=== PATIENT | male | born 1955 | race Two or more races ===

== ENCOUNTER 2018-06-29 12:39 | Inpatient (IN) | payer OTHER ==
--- NOTE | 2018-06-29 13:16 | EDM.PDOC ---
ED HPI GENERAL MEDICAL PROBLEM - General Chief Complaint: Abdominal Pain Stated Complaint: SENT BY DR AL FOR APPENDICITIS Time Seen by Provider: 06/29/18 13:16 Source of Information: Reports: Patient - History of Present Illness INITIAL COMMENTS - FREE TEXT/NARRATIVE: Patient is here for evaluation of acute appendicitis that was diagnosed by Dr. Al in the clinic. Patient states that he has had right lower quadrant for this week, has gotten significantly worse. Last ate around 8 AM when he had a piece of bread. He's had nothing to drink since that time. Patient has never had surgery before previously. He denies any history of heart disease or diabetes. It does not sound like he has had regular medical care as he does not have a PCP locally. Patient is a full code. Right Lower Abdomen Pain Score (Numeric/FACES): 8 - Related Data Allergies Allergy/AdvReac Type Severity Reaction Status Date / Time No Known Allergies Allergy Verified 06/29/18 12:59 Home Meds: Home Meds . [No Known Home Meds] 06/29/18 [History] Social & Family History - Tobacco Use Smoking Status *Q: Never Smoker Second Hand Smoke Exposure: No - Caffeine Use Caffeine Use: Reports: None - Recreational Drug Use Recreational Drug Use: No ED ROS GENERAL - Review of Systems Review Of Systems: See Below Constitutional: Reports: Malaise, Fatigue, Decreased Appetite. Denies: Fever, Chills HEENT: Reports: No Symptoms Respiratory: Reports: No Symptoms Cardiovascular: Reports: No Symptoms GI/Abdominal: Reports: Abdominal Pain, Diarrhea, Decreased Appetite Skin: Reports: No Symptoms Psychiatric: Reports: No Symptoms Hematologic/Lymphatic: Reports: No Symptoms ED EXAM, GI/ABD - Physical Exam Exam: See Below Exam Limited By: No Limitations General Appearance: Alert, WD/WN, No Apparent Distress Throat/Mouth: Normal Inspection, Normal Oropharynx Head: Atraumatic, Normocephalic Neck: Normal Inspection, Non-Tender Respiratory/Chest: No Respiratory Distress, Lungs Clear, Normal Breath Sounds Cardiovascular: Regular Rate, Rhythm, No Murmur GI/Abdominal Exam: Other (Abdomen is obese. Hypoactive bowel sounds throughout. Significant tenderness to the right lower quadrant.) Neurological: Alert, Oriented EKG INTERPRETATION EKG Date: 06/29/18 Time: 14:53 Rhythm: NSR Rate (Beats/Min): 113 EKG Interpretation Comments: Reviewed with Dr Berg Course - Vital Signs Last Recorded V/S: Last Vital Signs Temp 99.7 F 06/29/18 16:03 Pulse 112 H 06/29/18 16:03 Resp 18 06/29/18 16:03 BP 147/91 H 06/29/18 16:03 Pulse Ox 96 06/29/18 16:03 - Orders/Labs/Meds Orders: Active Orders 24 hr Category Date Time Status Patient Status [ADT] Routine ADT 06/29/18 15:34 Active EKG 12 Lead [EKG Documentation Completion] [RC] STAT Care 06/29/18 14:30 Active Sodium Chloride 0.9% [Normal Saline] 1,000 ml Med 06/29/18 13:52 Active IV ONETIME Schedule Procedure [COMM] Stat Oth 06/29/18 15:38 Ordered Medication Orders Sodium Chloride (Normal Saline) 1,000 mls @ 250 mls/hr IV ONETIME ONE Stop: 06/29/18 17:51 Last Admin: 06/29/18 14:17 Dose: 250 mls/hr Meds: Medications Generic Name Dose Route Start Last Admin Trade Name Freq PRN Reason Stop Dose Admin Sodium Chloride 1,000 mls @ 250 mls/hr 06/29/18 13:52 06/29/18 14:17 Normal Saline IV 06/29/18 17:51 250 mls/hr ONETIME ONE Administration Discontinued Medications Generic Name Dose Route Start Last Admin Trade Name Freq PRN Reason Stop Dose Admin Bupivacaine HCl Confirm 06/29/18 15:46 Marcaine 0.5% Administered 06/29/18 15:47 Dose 30 ml .ROUTE .STK-MED ONE Ertapenem Confirm 06/29/18 16:59 Invanz Administered 06/29/18 17:00 Dose 1 gm .ROUTE .STK-MED ONE Fentanyl Confirm 06/29/18 15:43 Sublimaze Administered 06/29/18 15:44 Dose 250 mcg .ROUTE .STK-MED ONE Hydromorphone HCl 0.5 mg 06/29/18 13:52 06/29/18 14:18 Dilaudid IVPUSH 06/29/18 13:53 0.5 mg ONETIME ONE Administration Hydromorphone HCl 0.5 mg 06/29/18 15:02 06/29/18 15:52 Dilaudid IVPUSH 06/29/18 15:03 0.5 mg ONETIME ONE Administration Lidocaine HCl Confirm 06/29/18 15:43 Xylocaine-Mpf 1% Administered 06/29/18 15:44 Dose 4 mls @ as directed .ROUTE .STK-MED ONE Midazolam HCl Confirm 06/29/18 15:43 Versed 1 Mg/Ml Administered 06/29/18 15:44 Dose 2 mg .ROUTE .STK-MED ONE Ondansetron HCl 4 mg 06/29/18 13:52 06/29/18 14:22 Zofran IVPUSH 06/29/18 13:53 4 mg ONETIME ONE Administration Ondansetron HCl Confirm 06/29/18 15:42 Zofran Administered 06/29/18 15:43 Dose 4 mg .ROUTE .STK-MED ONE Propofol Confirm 06/29/18 15:43 Diprivan 20 Ml Administered 06/29/18 15:44 Dose 200 mg .ROUTE .STK-MED ONE Rocuronium [place] Confirm 06/29/18 15:42 Zemuron Administered 06/29/18 15:43 Dose 50 mg .ROUTE .STK-MED ONE - Re-Assessments/Exams Free Text/Narrative Re-Assessment/Exam: Diagnosis of acute appendicitis from the clinic. Significant right lower quadrant tenderness here. CBC demonstrates WBC 12,700. Glucose is elevated at 178, patient denies any history of diabetes diagnosis but has not had lab work in the recent past. This will need further evaluation in the future. CT images have been pushed from [facility] and demonstrated appendicitis, report is not available. Will get EKG. Start normal saline, Zofran for nausea and Dilaudid for pain. Surgeon will be notified to consult patient and determine further treatment and care. Patient is a full code. 06/29/18 14:35 EKG demonstrates sinus tachycardia with a rate of 113. Patient still having a fair amount of pain, will give 0.[address] Sarmiento/surgeon here and meeting with the patient and will assume care. 06/29/18 15:01 We did receive official CT report from [facility] which demonstrated acute appendicitis measuring up to 10 mm in diameter. Small amount of free fluid in the pelvis. No free intra-peritoneal air. 06/29/18 15:04 Departure - Departure Time of Disposition: 16:20 Disposition: Admitted As Inpatient 66 Condition: Fair Clinical Impression: Appendicitis Qualifiers: Appendicitis type: acute appendicitis - Discharge Information - My Orders Last 24 Hours: My Active Orders 06/29/18 13:52 Sodium Chloride 0.9% [Normal Saline] 1,000 ml IV ONETIME 06/29/18 14:30 EKG 12 Lead [EKG Documentation Completion] [RC] STAT - Assessment/Plan Last 24 Hours: My Active Orders 06/29/18 13:52 Sodium Chloride 0.9% [Normal Saline] 1,000 ml IV ONETIME 06/29/18 14:30 EKG 12 Lead [EKG Documentation Completion] [RC] STAT
[2018-06-29] MEDS ORDERED: HYDROmorphone 0.5 MG/0.5 ML SYRINGE IVPUSH ONE ×2 (13:52→15:02)
[2018-06-29] MEDS ORDERED: Ondansetron 4 MG/2 ML SDV IVPUSH ONE (13:52)
[2018-06-29] MEDS ORDERED: Sodium Chloride 0.9% 1,000 ML IV ONE (13:52)
[2018-06-29] MEDS ORDERED: Rocuronium 50 MG/5 ML Vial ONE ×2 (15:42→17:37)
[2018-06-29] MEDS ORDERED: Ondansetron 4 MG/2 ML SDV ONE (15:42)
[2018-06-29] MEDS ORDERED: Lidocaine 1% 4 ML ONE (15:43)
[2018-06-29] MEDS ORDERED: Midazolam 1 MG/ML 2 ML SDV ONE (15:43)
[2018-06-29] MEDS ORDERED: fentaNYL 250 MCG/5 ML SDV ONE ×2 (15:43→18:07)
[2018-06-29] MEDS ORDERED: Propofol 200 MG/20 ML SDV ONE (15:43)
[2018-06-29] MEDS ORDERED: Bupivacaine 0.5% 30 ML SDV ONE (15:46)
--- NOTE | 2018-06-29 16:02 | PCM.PREANE ---
Preanesthetic Assessment - Anesthesia/Transfusion/Family Hx Anesthesia History: No Prior Anesthesia Family History of Anesthesia Reaction: No Transfusion History: No Prior Transfusion(s) - Review of Systems General: Fever, Weakness, Fatigue, Malaise Pulmonary: No Symptoms Cardiovascular: No Symptoms Gastrointestinal: Abdominal Pain, Decreased Appetite Neurological: No Symptoms Other: Reports: None - Physical Assessment NPO Status Date: 06/29/18 NPO Status Time: 08:00 Pulse: 112 O2 Sat by Pulse Oximetry: 96 Respiratory Rate: 18 Blood Pressure: 147/91 Temperature: 37.6 C Vital Signs: Last Vital Signs Temp 37.6 C 06/29/18 12:58 Pulse 112 H 06/29/18 12:58 Resp 18 06/29/18 12:58 BP 147/91 H 06/29/18 12:58 Pulse Ox 96 06/29/18 12:58 Height: 1.68 m Weight: 81.647 kg ASA Class: 2 Mental Status: Alert & Oriented x3 Airway Class: Mallampati = 2 Dentition: Reports: Broken Tooth/Teeth, Missing Tooth/Teeth Thyro-Mental Finger Breadths: 3 Mouth Opening Finger Breadths: 2 ROM/Head Extension: Full Lungs: Decreased Breath Sounds (bases) Cardiovascular: Regular Rate, Regular Rhythm, No Murmurs - Allergies Allergies/Adverse Reactions: Allergies Allergy/AdvReac Type Severity Reaction Status Date / Time No Known Allergies Allergy Verified 06/29/18 12:59 - Blood Blood Available: No Product(s) Available: None - Anesthesia Plan Pre-Op Medication Ordered: None - Acknowledgements Anesthesia Type Planned: General Anesthesia Pt an Appropriate Candidate for the Planned Anesthesia: Yes Alternatives and Risks of Anesthesia Discussed w Pt/Guardian: Yes Pt/Guardian Understands and Agrees with Anesthesia Plan: Yes PreAnesthesia Questionnaire - SUBSTANCE USE Smoking Status *Q: Never Smoker Second Hand Smoke Exposure: No Days Per Week of Alcohol Use: 0 Number of Drinks Per Day: 0 Total Drinks Per Week: 0 Recreational Drug Use History: No - HOME MEDS Home Medications: Home Meds . [No Known Home Meds] 06/29/18 [History] - CURRENT (IN HOUSE) MEDS Current Meds: Current Medications Sodium Chloride (Normal Saline) 1,000 mls @ 250 mls/hr IV ONETIME ONE Stop: 06/29/18 17:51 Last Admin: 06/29/18 14:17 Dose: 250 mls/hr Discontinued Medications Bupivacaine HCl (Marcaine 0.5%) Confirm Administered Dose 30 ml .ROUTE .STK-MED ONE Stop: 06/29/18 15:47 Fentanyl (Sublimaze) Confirm Administered Dose 250 mcg .ROUTE .STK-MED ONE Stop: 06/29/18 15:44 Hydromorphone HCl (Dilaudid) 0.5 mg IVPUSH ONETIME ONE Stop: 06/29/18 13:53 Last Admin: 06/29/18 14:18 Dose: 0.5 mg Hydromorphone HCl (Dilaudid) 0.5 mg IVPUSH ONETIME ONE Stop: 06/29/18 15:03 Last Admin: 06/29/18 15:52 Dose: 0.5 mg Lidocaine HCl (Xylocaine-Mpf 1%) Confirm Administered Dose 4 mls @ as directed .ROUTE .STK-MED ONE Stop: 06/29/18 15:44 Midazolam HCl (Versed 1 Mg/Ml) Confirm Administered Dose 2 mg .ROUTE .STK-MED ONE Stop: 06/29/18 15:44 Ondansetron HCl (Zofran) 4 mg IVPUSH ONETIME ONE Stop: 06/29/18 13:53 Last Admin: 06/29/18 14:22 Dose: 4 mg Ondansetron HCl (Zofran) Confirm Administered Dose 4 mg .ROUTE .STK-MED ONE Stop: 06/29/18 15:43 Propofol (Diprivan 20 Ml) Confirm Administered Dose 200 mg .ROUTE .STK-MED ONE Stop: 06/29/18 15:44 Rocuronium [place] (Zemuron) Confirm Administered Dose 50 mg .ROUTE .STK-MED ONE Stop: 06/29/18 15:43
[2018-06-29] MEDS ORDERED: Ertapenem 1 GM Vial ONE (16:59)
[2018-06-29] MEDS ORDERED: Lactated Ringers 1,000 ML ONE ×2 (17:10→17:31)
[2018-06-29] MEDS ORDERED: Phenylephrine/Normal Saline 100 MCG/ML 10 ML Syringe ONE (17:11)
[2018-06-29] MEDS ORDERED: HYDROmorphone 0.5 MG/0.5 ML Syringe ONE ×2 (17:38)
[2018-06-29] MEDS ORDERED: fentaNYL 100 MCG/2 ML SDV IVPUSH PRN (19:33)
[2018-06-29] MEDS ORDERED: HYDROmorphone 1 MG/ML Syringe IVPUSH PRN (19:33)
--- NOTE | 2018-06-29 19:35 | PCM.POSTAN ---
POST ANESTHESIA ASSESSMENT - MENTAL STATUS Mental Status: Somnolent - VITAL SIGNS Pulse Rate: 104 SaO2: 96 Resp Rate: 15 Blood Pressure: 154/104 Temperature: 37.6 C - RESPIRATORY Respiratory Status: Respiratory Rate WNL, Airway Patent, O2 Saturation Stable, Supplemental Oxygen - CARDIOVASCULAR CV Status: Pulse Rate WNL, Blood Pressure Stable, Elevated Blood Pressure - GASTROINTESTINAL GI Status: No Symptoms - PAIN Pain Score: 0 - POST OP HYDRATION Hydration Status: Adequate & Stable - OBSERVATIONS Free Text/Narrative:: no anesthesia complications noted
[2018-06-29] MEDS ORDERED: Ondansetron 4 MG/2 ML SDV IVPUSH PRN (20:56)
--- NOTE | 2018-06-29 20:58 | PCM.CONSN ---
- General Info Date of Service: 06/29/18 Subjective Update: The patient is a 62 year old male diagnosed with acute appendicitis had been seen in his PCP's office prior to presenting to the ED at [facility] for surgical assessment and indicated procedures. PMH is apparently unremarkable, he denies HTN, CAD, COPD, DM. There has been no prior abdominal surgeries. The patient is being evaluated in the perioperative period; post op appendectomy, POD 0. The hospitalist service has been asked to assist with blood sugar management. As expected, the patient is NPO. He therefore will be placed on sliding scale Humalog. BS checks will be every 6 hours until he begins eating. No complaints are voiced. Functional Status: Reports: Pain Controlled - Review of Systems General: Reports: No Symptoms HEENT: Reports: No Symptoms Pulmonary: Reports: No Symptoms Cardiovascular: Reports: No Symptoms Gastrointestinal: Reports: No Symptoms Genitourinary: Reports: No Symptoms Musculoskeletal: Reports: No Symptoms Skin: Reports: No Symptoms Neurological: Reports: No Symptoms Psychiatric: Reports: No Symptoms - Patient Data Vitals - Most Recent: Last Vital Signs Temp 37.4 C 06/29/18 20:27 Pulse 104 H 06/29/18 20:27 Resp 18 06/29/18 20:27 BP 141/94 H 06/29/18 20:27 Pulse Ox 97 06/29/18 20:27 Weight - Most Recent: 81.647 kg Med Orders - Current: Current Medications Fentanyl (Sublimaze) 50 mcg IVPUSH Q5M PRN PRN Reason: Pain Hydromorphone HCl (Dilaudid) 0.5 mg IVPUSH ONETIME PRN PRN Reason: For pain Discontinued Medications Bupivacaine HCl (Marcaine 0.5%) Confirm Administered Dose 30 ml .ROUTE .STK-MED ONE Stop: 06/29/18 15:47 Last Admin: 06/29/18 17:05 Dose: 30 ml Ertapenem (Invanz) Confirm Administered Dose 1 gm .ROUTE .STK-MED ONE Stop: 06/29/18 17:00 Fentanyl (Sublimaze) Confirm Administered Dose 250 mcg .ROUTE .STK-MED ONE Stop: 06/29/18 15:44 Fentanyl (Sublimaze) Confirm Administered Dose 250 mcg .ROUTE .STK-MED ONE Stop: 06/29/18 18:08 Hydromorphone HCl (Dilaudid) 0.5 mg IVPUSH ONETIME ONE Stop: 06/29/18 13:53 Last Admin: 06/29/18 14:18 Dose: 0.5 mg Hydromorphone HCl (Dilaudid) 0.5 mg IVPUSH ONETIME ONE Stop: 06/29/18 15:03 Last Admin: 06/29/18 15:52 Dose: 0.5 mg Hydromorphone HCl (Dilaudid) Confirm Administered Dose 0.5 mg .ROUTE .STK-MED ONE Stop: 06/29/18 17:39 Hydromorphone HCl (Dilaudid) Confirm Administered Dose 0.5 mg .ROUTE .STK-MED ONE Stop: 06/29/18 17:39 Sodium Chloride (Normal Saline) 1,000 mls @ 250 mls/hr IV ONETIME ONE Stop: 06/29/18 17:51 Last Admin: 06/29/18 14:17 Dose: 250 mls/hr Lidocaine HCl (Xylocaine-Mpf 1%) Confirm Administered Dose 4 mls @ as directed .ROUTE .STK-MED ONE Stop: 06/29/18 15:44 Lactated Ringer's (Ringers, Lactated) Confirm Administered Dose 1,000 mls @ as directed .ROUTE .STK-MED ONE Stop: 06/29/18 17:11 Lactated Ringer's (Ringers, Lactated) Confirm Administered Dose 1,000 mls @ as directed .ROUTE .STK-MED ONE Stop: 06/29/18 17:32 Midazolam HCl (Versed 1 Mg/Ml) Confirm Administered Dose 2 mg .ROUTE .STK-MED ONE Stop: 06/29/18 15:44 Ondansetron HCl (Zofran) 4 mg IVPUSH ONETIME ONE Stop: 06/29/18 13:53 Last Admin: 06/29/18 14:22 Dose: 4 mg Ondansetron HCl (Zofran) Confirm Administered Dose 4 mg .ROUTE .STK-MED ONE Stop: 06/29/18 15:43 Phenylephrine HCl (Phenylephrine In Ns 100 Mcg/Ml) Confirm Administered Dose 1 mg .ROUTE .STK-MED ONE Stop: 06/29/18 17:12 Propofol (Diprivan 20 Ml) Confirm Administered Dose 200 mg .ROUTE .STK-MED ONE Stop: 06/29/18 15:44 Rocuronium [place] (Zemuron) Confirm Administered Dose 50 mg .ROUTE .STK-MED ONE Stop: 06/29/18 15:43 Rocuronium [place] (Zemuron) Confirm Administered Dose 50 mg .ROUTE .STK-MED ONE Stop: 06/29/18 17:38 - Exam Quality Assessment: Supplemental Oxygen, DVT Prophylaxis General: Cooperative, No Acute Distress HEENT: Pupils Equal, Pupils Reactive, EOMI Neck: Trachea Midline, No JVD Lungs: Normal Respiratory Effort Cardiovascular: Regular Rate, Regular Rhythm GI/Abdominal Exam: Normal Bowel Sounds, Soft, Non-Tender, No Organomegaly, No Distention, Abnormal Bowel Sounds (Male) Exam: Deferred Back Exam: Normal Inspection Extremities: Normal Inspection, Non-Tender, Normal Capillary Refill Skin: Warm Neurological: No New Focal Deficit Psy/Mental Status: Other (drowsy) Consult PN Assessment/Plan POD#: 0 (1) Diabetes mellitus SNOMED Code(s): 98961187 Code(s): E11.9 - TYPE 2 DIABETES MELLITUS WITHOUT COMPLICATIONS Current Visit: Yes (2) Appendicitis SNOMED Code(s): 52292861 Code(s): K37 - UNSPECIFIED APPENDICITIS Current Visit: Yes Qualifiers: Appendicitis type: acute appendicitis Problem List Initiated/Reviewed/Updated: Yes Plan: Impression: POD 0 S/P appendectomy Newly diagnosed diabetes mellitus type 2 Plan: Begin Humalog sliding scale BP mgt per Primary service Pain mgt per Primary service Diabetic teaching Dietary consult DVT/GI prophylaxis
[2018-06-29] MEDS: D5 1/2 NS w/ 20 mEq/L KCl 1,000 ML IV SCH (21:51)
[2018-06-29] MEDS: Enoxaparin 40 MG/0.4 ML Syringe SUBCUT SCH (21:54)
[2018-06-29] MEDS: Insulin Lispro 100 Unit/ML 3 ML KwikPen SUBCUT SCH (22:16)
[2018-06-29] MEDS: Morphine 2 MG/ML Syringe IVPUSH PRN (22:25)
[2018-06-30] MEDS: Morphine 2 MG/ML Syringe IVPUSH PRN ×6 (01:51→19:37)
[2018-06-30] MEDS: D5 1/2 NS w/ 20 mEq/L KCl 1,000 ML IV SCH ×3 (05:24→23:22)
[2018-06-30] MEDS: Insulin Lispro 100 Unit/ML 3 ML KwikPen SUBCUT SCH ×5 (05:53→23:47)
[2018-06-30] MEDS: Pantoprazole 40 MG Vial IVPUSH SCH (09:03)
[2018-06-30] MEDS ORDERED: Acetaminophen 650 MG Supp RECTAL PRN (16:48)
[2018-06-30] MEDS ORDERED: Ertapenem 1 GM in Sodium Chloride 0.9% 100 ML IV SCH (17:00)
[2018-06-30] MEDS ORDERED: Sodium Chloride 0.9% 1,000 ML IV ONE ×2 (17:38→18:23)
--- NOTE | 2018-06-30 17:44 | PCM.PN ---
- General Info Date of Service: 06/30/18 Functional Status: Reports: Pain Controlled - Patient Data Vitals - Most Recent: Last Vital Signs Temp 101.2 F H 06/30/18 17:12 Pulse 101 H 06/30/18 16:04 Resp 18 06/30/18 16:04 BP 119/73 06/30/18 16:04 Pulse Ox 95 06/30/18 16:04 Weight - Most Recent: 180 lb I&O - Last 24 Hours: Intake & Output 06/30/18 06/30/18 06/30/18 06:59 14:59 22:59 Intake Total 1339 Output Total 550 Balance 789 Lab Results Last 24 Hours: Laboratory Results - last 24 hr 06/29/18 06/29/18 06/29/18 Range/Units 21:15 21:15 22:03 WBC 10.13 H (4.23-9.07) K/mm3 RBC 5.02 (4.63-6.08) M/mm3 Hgb 14.6 (13.7-17.5) gm/L Hct 43.6 (40.1-51.0) % MCV 86.9 (79.0-92.2) fl MCH 29.1 (25.7-32.2) pg MCHC 33.5 (32.2-35.5) g/dl RDW Std Deviation 40.5 (35.1-43.9) fL Plt Count 218 (163-337) K/mm3 MPV 8.9 L (9.4-12.3) fl Neut % (Auto) 85.6 H (34.0-67.9) % Lymph % (Auto) 7.8 L (21.8-53.1) % [place] % (Auto) 6.1 (5.3-12.2) % Eos % (Auto) 0 L (0.8-7.0) Baso % (Auto) 0.1 (0.1-1.2) % Neut # (Auto) 8.67 H (1.78-5.38) K/mm3 Lymph # (Auto) 0.79 L (1.32-3.57) K/mm3 [place] # (Auto) 0.62 (0.30-0.82) K/mm3 Eos # (Auto) 0.00 L (0.04-0.54) K/mm3 Baso # (Auto) 0.01 (0.01-0.08) K/mm3 Manual Slide Review Abnormal smear Sodium 134 L (136-145) mEq/L Potassium 4.5 (3.5-5.1) mEq/L Chloride 103 (98-107) mEq/L Carbon Dioxide 21 (21-32) mEq/L Anion Gap 14.5 (5-15) BUN 18 (7-18) mg/dL Creatinine 1.5 H (0.7-1.3) mg/dL Est Cr Clr Drug Dosing 46.08 mL/min Estimated GFR (MDRD) 47 (>60) mL/min BUN/Creatinine Ratio 12.0 L (14-18) Glucose 193 H (80-115) mg/dL POC Glucose 198 H (80-115) mg/dL Hemoglobin A1c (4.50-6.20) % Calcium 7.9 L (8.5-10.1) mg/dL Total Bilirubin 1.4 H (0.2-1.0) mg/dL AST 22 (15-37) U/L ALT 51 (16-63) U/L Alkaline Phosphatase 59 (46-116) U/L Total Protein 7.1 (6.4-8.2) g/dl Albumin 3.0 L (3.4-5.0) g/dl Globulin 4.1 gm/dL Albumin/Globulin Ratio 0.7 L (1-2) 06/30/18 06/30/18 06/30/18 Range/Units 05:26 05:31 11:17 WBC (4.23-9.07) K/mm3 RBC (4.63-6.08) M/mm3 Hgb (13.7-17.5) gm/L Hct (40.1-51.0) % MCV (79.0-92.2) fl MCH (25.7-32.2) pg MCHC (32.2-35.5) g/dl RDW Std Deviation (35.1-43.9) fL Plt Count (163-337) K/mm3 MPV (9.4-12.3) fl Neut % (Auto) (34.0-67.9) % Lymph % (Auto) (21.8-53.1) % [place] % (Auto) (5.3-12.2) % Eos % (Auto) (0.8-7.0) Baso % (Auto) (0.1-1.2) % Neut # (Auto) (1.78-5.38) K/mm3 Lymph # (Auto) (1.32-3.57) K/mm3 [place] # (Auto) (0.30-0.82) K/mm3 Eos # (Auto) (0.04-0.54) K/mm3 Baso # (Auto) (0.01-0.08) K/mm3 Manual Slide Review Sodium (136-145) mEq/L Potassium (3.5-5.1) mEq/L Chloride (98-107) mEq/L Carbon Dioxide (21-32) mEq/L Anion Gap (5-15) BUN (7-18) mg/dL Creatinine (0.7-1.3) mg/dL Est Cr Clr Drug Dosing mL/min Estimated GFR (MDRD) (>60) mL/min BUN/Creatinine Ratio (14-18) Glucose (80-115) mg/dL POC Glucose 178 H 168 H (80-115) mg/dL Hemoglobin A1c 7.30 H (4.50-6.20) % Calcium (8.5-10.1) mg/dL Total Bilirubin (0.2-1.0) mg/dL AST (15-37) U/L ALT (16-63) U/L Alkaline Phosphatase (46-116) U/L Total Protein (6.4-8.2) g/dl Albumin (3.4-5.0) g/dl Globulin gm/dL Albumin/Globulin Ratio (1-2) 06/30/18 Range/Units 15:53 WBC (4.23-9.07) K/mm3 RBC (4.63-6.08) M/mm3 Hgb (13.7-17.5) gm/L Hct (40.1-51.0) % MCV (79.0-92.2) fl MCH (25.7-32.2) pg MCHC (32.2-35.5) g/dl RDW Std Deviation (35.1-43.9) fL Plt Count (163-337) K/mm3 MPV (9.4-12.3) fl Neut % (Auto) (34.0-67.9) % Lymph % (Auto) (21.8-53.1) % [place] % (Auto) (5.3-12.2) % Eos % (Auto) (0.8-7.0) Baso % (Auto) (0.1-1.2) % Neut # (Auto) (1.78-5.38) K/mm3 Lymph # (Auto) (1.32-3.57) K/mm3 [place] # (Auto) (0.30-0.82) K/mm3 Eos # (Auto) (0.04-0.54) K/mm3 Baso # (Auto) (0.01-0.08) K/mm3 Manual Slide Review Sodium (136-145) mEq/L Potassium (3.5-5.1) mEq/L Chloride (98-107) mEq/L Carbon Dioxide (21-32) mEq/L Anion Gap (5-15) BUN (7-18) mg/dL Creatinine (0.7-1.3) mg/dL Est Cr Clr Drug Dosing mL/min Estimated GFR (MDRD) (>60) mL/min BUN/Creatinine Ratio (14-18) Glucose (80-115) mg/dL POC Glucose 147 H (80-115) mg/dL Hemoglobin A1c (4.50-6.20) % Calcium (8.5-10.1) mg/dL Total Bilirubin (0.2-1.0) mg/dL AST (15-37) U/L ALT (16-63) U/L Alkaline Phosphatase (46-116) U/L Total Protein (6.4-8.2) g/dl Albumin (3.4-5.0) g/dl Globulin gm/dL Albumin/Globulin Ratio (1-2) Chris Results Last 24 Hours: Microbiology 06/29/18 17:35 Gram Stain - Final Appendix Anaerobic Culture - Preliminary Gram Negative Rods Gram Negative Rods#2 Streptococcus Salivarius Med Orders - Current: Current Medications Acetaminophen (Tylenol) 600 mg RECTAL Q4H PRN PRN Reason: fever Last Admin: 06/30/18 17:12 Dose: 650 mg Enoxaparin Sodium (Lovenox) 40 mg SUBCUT Q24H [facility] Last Admin: 06/29/18 21:54 Dose: 40 mg Potassium Chloride/Dextrose/Sod Cl (D5 1/2 Ns W/ 20 Meq/L Kcl) 1,000 mls @ 125 mls/hr IV ASDIRECTED [facility] Last Admin: 06/30/18 13:28 Dose: 125 mls/hr Ertapenem 1 gm/ Sodium (Chloride) 100 mls @ 200 mls/hr IV Q24H [facility] Last Admin: 06/30/18 17:10 Dose: 200 mls/hr Sodium Chloride (Normal Saline) 1,000 mls @ 150 mls/hr IV ONETIME ONE Stop: 07/01/18 00:17 Insulin Human Lispro (Humalog) 0 unit SUBCUT Q6H [facility]; Protocol Last Admin: 06/30/18 13:24 Dose: 1 unit Morphine Sulfate (Morphine) 4 mg IVPUSH Q1H PRN PRN Reason: Pain (severe 7-10) Stop: 06/30/18 21:01 Last Admin: 06/30/18 13:26 Dose: 4 mg Ondansetron HCl (Zofran) 4 mg IVPUSH Q6H PRN PRN Reason: Nausea/Vomiting Pantoprazole Sodium (Protonix Iv) 40 mg IVPUSH DAILY [facility] Last Admin: 06/30/18 09:03 Dose: 40 mg Discontinued Medications Bupivacaine HCl (Marcaine 0.5%) Confirm Administered Dose 30 ml .ROUTE .STK-MED ONE Stop: 06/29/18 15:47 Last Admin: 06/29/18 17:05 Dose: 30 ml Ertapenem (Invanz) Confirm Administered Dose 1 gm .ROUTE .STK-MED ONE Stop: 06/29/18 17:00 Fentanyl (Sublimaze) Confirm Administered Dose 250 mcg .ROUTE .STK-MED ONE Stop: 06/29/18 15:44 Fentanyl (Sublimaze) Confirm Administered Dose 250 mcg .ROUTE .STK-MED ONE Stop: 06/29/18 18:08 Fentanyl (Sublimaze) 50 mcg IVPUSH Q5M PRN PRN Reason: Pain Hydromorphone HCl (Dilaudid) 0.5 mg IVPUSH ONETIME ONE Stop: 06/29/18 13:53 Last Admin: 06/29/18 14:18 Dose: 0.5 mg Hydromorphone HCl (Dilaudid) 0.5 mg IVPUSH ONETIME ONE Stop: 06/29/18 15:03 Last Admin: 06/29/18 15:52 Dose: 0.5 mg Hydromorphone HCl (Dilaudid) Confirm Administered Dose 0.5 mg .ROUTE .STK-MED ONE Stop: 06/29/18 17:39 Hydromorphone HCl (Dilaudid) Confirm Administered Dose 0.5 mg .ROUTE .STK-MED ONE Stop: 06/29/18 17:39 Hydromorphone HCl (Dilaudid) 0.5 mg IVPUSH ONETIME PRN PRN Reason: For pain Sodium Chloride (Normal Saline) 1,000 mls @ 250 mls/hr IV ONETIME ONE Stop: 06/29/18 17:51 Last Admin: 06/29/18 14:17 Dose: 250 mls/hr Lidocaine HCl (Xylocaine-Mpf 1%) Confirm Administered Dose 4 mls @ as directed .ROUTE .STK-MED ONE Stop: 06/29/18 15:44 Lactated Ringer's (Ringers, Lactated) Confirm Administered Dose 1,000 mls @ as directed .ROUTE .ST-MED ONE Stop: 06/29/18 17:11 Lactated Ringer's (Ringers, Lactated) Confirm Administered Dose 1,000 mls @ as directed .ROUTE .STK-MED ONE Stop: 06/29/18 17:32 Insulin Human Lispro (Humalog) 0 unit SUBCUT Q6H [facility]; Protocol Last Admin: 06/30/18 07:50 Dose: Not Given Midazolam HCl (Versed 1 Mg/Ml) Confirm Administered Dose 2 mg .ROUTE .ST-MED ONE Stop: 06/29/18 15:44 Ondansetron HCl (Zofran) 4 mg IVPUSH ONETIME ONE Stop: 06/29/18 13:53 Last Admin: 06/29/18 14:22 Dose: 4 mg Ondansetron HCl (Zofran) Confirm Administered Dose 4 mg .ROUTE .STK-MED ONE Stop: 06/29/18 15:43 Phenylephrine HCl (Phenylephrine In Ns 100 Mcg/Ml) Confirm Administered Dose 1 mg .ROUTE .STK-MED ONE Stop: 06/29/18 17:12 Propofol (Diprivan 20 Ml) Confirm Administered Dose 200 mg .ROUTE .STK-MED ONE Stop: 06/29/18 15:44 Rocuronium [place] (Zemuron) Confirm Administered Dose 50 mg .ROUTE .STK-MED ONE Stop: 06/29/18 15:43 Rocuronium [place] (Zemuron) Confirm Administered Dose 50 mg .ROUTE .STK-MED ONE Stop: 06/29/18 17:38 - Exam General: Alert, Cooperative, No Acute Distress HEENT: Pupils Equal Neck: Supple Lungs: Clear to Auscultation Cardiovascular: Regular Rate GI/Abdominal Exam: Tender Back Exam: Normal Inspection Extremities: Normal Inspection Skin: Warm, Dry Wound/Incisions: Dressing Dry and Intact Neurological: No New Focal Deficit Psy/Mental Status: Alert (Stable and feeling better POD # 1) - Problem List Review Problem List Initiated/Reviewed/Updated: Yes - My Orders Last 24 Hours: My Active Orders 06/29/18 17:35 CULTURE ANAEROBIC + SMEAR [RM] Routine 06/29/18 20:56 RT Incentive Spirometry [RC] Q1HWA Up With Assistance [RC] ASDIRECTED Respiratory Care Assess and Treatment [CONS] Routine Morphine 4 mg IVPUSH Q1H PRN Ondansetron [Zofran] 4 mg IVPUSH Q6H PRN DVT/VTE Prophylaxis Reflex [OM.PC] Routine Resuscitation Status Routine 06/29/18 20:57 Patient Status [ADT] Routine Oxygen Therapy [RC] PRN Vital Signs [RC] Q4HR 06/29/18 20:58 Gastrointestinal Tube Mgmt [RC] Up to Chair [RC] .TID 06/29/18 20:59 Intake and Output [RC] 04,16 06/29/18 21:01 Antiembolic Devices [RC] VTE/DVT Education [RC] 06/29/18 21:15 D5 1/2 NS w/ 20 mEq/L KCl 1,000 ml IV ASDIRECTED 06/29/18 22:00 Enoxaparin [Lovenox] 40 mg SUBCUT Q24H 06/29/18 Dinner Nothing Per Oral Diet [DIET] 06/30/18 03:15 FLU Vacc [id number] 36MOS UP/PF [Fluzone Quad 6220-2588 Syringe] 60 mcg IM .ONCE 06/30/18 09:00 Pantoprazole [ProTONIX IV] 40 mg IVPUSH DAILY 06/30/18 16:48 Acetaminophen [Tylenol] 600 mg RECTAL Q4H PRN 06/30/18 17:00 Ertapenem [INVanz] 1 gm Sodium Chloride 0.9% [Normal Saline] 100 ml IV Q24H 06/30/18 17:38 Sodium Chloride 0.9% [Normal Saline] 1,000 ml IV ONETIME 07/01/18 05:11 BASIC METABOLIC PANEL,BMP [CHEM] AM CBC WITH AUTO DIFF [HEME] AM - Assessment Assessment:: Stable, continue Abx, await bowel fxn
--- NOTE | 2018-06-30 18:03 | PCM.PN ---
- General Info Date of Service: 06/30/18 Functional Status: Reports: Pain Controlled, Urinating - Review of Systems General: Reports: No Symptoms HEENT: Reports: No Symptoms Pulmonary: Reports: No Symptoms Cardiovascular: Reports: No Symptoms Gastrointestinal: Reports: Abdominal Pain Genitourinary: Reports: No Symptoms Musculoskeletal: Reports: No Symptoms Skin: Reports: No Symptoms Neurological: Reports: No Symptoms Psychiatric: Reports: No Symptoms - Patient Data Vitals - Most Recent: Last Vital Signs Temp 38.4 C H 06/30/18 17:12 Pulse 101 H 06/30/18 16:04 Resp 18 06/30/18 16:04 BP 119/73 06/30/18 16:04 Pulse Ox 95 06/30/18 16:04 Weight - Most Recent: 81.647 kg I&O - Last 24 Hours: Intake & Output 06/30/18 06/30/18 06/30/18 06:59 14:59 22:59 Intake Total 1339 Output Total 550 Balance 789 Lab Results Last 24 Hours: Laboratory Results - last 24 hr 06/29/18 06/29/18 06/29/18 Range/Units 21:15 21:15 22:03 WBC 10.13 H (4.23-9.07) K/mm3 RBC 5.02 (4.63-6.08) M/mm3 Hgb 14.6 (13.7-17.5) gm/L Hct 43.6 (40.1-51.0) % MCV 86.9 (79.0-92.2) fl MCH 29.1 (25.7-32.2) pg MCHC 33.5 (32.2-35.5) g/dl RDW Std Deviation 40.5 (35.1-43.9) fL Plt Count 218 (163-337) K/mm3 MPV 8.9 L (9.4-12.3) fl Neut % (Auto) 85.6 H (34.0-67.9) % Lymph % (Auto) 7.8 L (21.8-53.1) % [place] % (Auto) 6.1 (5.3-12.2) % Eos % (Auto) 0 L (0.8-7.0) Baso % (Auto) 0.1 (0.1-1.2) % Neut # (Auto) 8.67 H (1.78-5.38) K/mm3 Lymph # (Auto) 0.79 L (1.32-3.57) K/mm3 [place] # (Auto) 0.62 (0.30-0.82) K/mm3 Eos # (Auto) 0.00 L (0.04-0.54) K/mm3 Baso # (Auto) 0.01 (0.01-0.08) K/mm3 Manual Slide Review Abnormal smear Sodium 134 L (136-145) mEq/L Potassium 4.5 (3.5-5.1) mEq/L Chloride 103 (98-107) mEq/L Carbon Dioxide 21 (21-32) mEq/L Anion Gap 14.5 (5-15) BUN 18 (7-18) mg/dL Creatinine 1.5 H (0.7-1.3) mg/dL Est Cr Clr Drug Dosing 46.08 mL/min Estimated GFR (MDRD) 47 (>60) mL/min BUN/Creatinine Ratio 12.0 L (14-18) Glucose 193 H (80-115) mg/dL POC Glucose 198 H (80-115) mg/dL Hemoglobin A1c (4.50-6.20) % Calcium 7.9 L (8.5-10.1) mg/dL Total Bilirubin 1.4 H (0.2-1.0) mg/dL AST 22 (15-37) U/L ALT 51 (16-63) U/L Alkaline Phosphatase 59 (46-116) U/L Total Protein 7.1 (6.4-8.2) g/dl Albumin 3.0 L (3.4-5.0) g/dl Globulin 4.1 gm/dL Albumin/Globulin Ratio 0.7 L (1-2) 06/30/18 06/30/18 06/30/18 Range/Units 05:26 05:31 11:17 WBC (4.23-9.07) K/mm3 RBC (4.63-6.08) M/mm3 Hgb (13.7-17.5) gm/L Hct (40.1-51.0) % MCV (79.0-92.2) fl MCH (25.7-32.2) pg MCHC (32.2-35.5) g/dl RDW Std Deviation (35.1-43.9) fL Plt Count (163-337) K/mm3 MPV (9.4-12.3) fl Neut % (Auto) (34.0-67.9) % Lymph % (Auto) (21.8-53.1) % [place] % (Auto) (5.3-12.2) % Eos % (Auto) (0.8-7.0) Baso % (Auto) (0.1-1.2) % Neut # (Auto) (1.78-5.38) K/mm3 Lymph # (Auto) (1.32-3.57) K/mm3 [place] # (Auto) (0.30-0.82) K/mm3 Eos # (Auto) (0.04-0.54) K/mm3 Baso # (Auto) (0.01-0.08) K/mm3 Manual Slide Review Sodium (136-145) mEq/L Potassium (3.5-5.1) mEq/L Chloride (98-107) mEq/L Carbon Dioxide (21-32) mEq/L Anion Gap (5-15) BUN (7-18) mg/dL Creatinine (0.7-1.3) mg/dL Est Cr Clr Drug Dosing mL/min Estimated GFR (MDRD) (>60) mL/min BUN/Creatinine Ratio (14-18) Glucose (80-115) mg/dL POC Glucose 178 H 168 H (80-115) mg/dL Hemoglobin A1c 7.30 H (4.50-6.20) % Calcium (8.5-10.1) mg/dL Total Bilirubin (0.2-1.0) mg/dL AST (15-37) U/L ALT (16-63) U/L Alkaline Phosphatase (46-116) U/L Total Protein (6.4-8.2) g/dl Albumin (3.4-5.0) g/dl Globulin gm/dL Albumin/Globulin Ratio (1-2) 06/30/18 Range/Units 15:53 WBC (4.23-9.07) K/mm3 RBC (4.63-6.08) M/mm3 Hgb (13.7-17.5) gm/L Hct (40.1-51.0) % MCV (79.0-92.2) fl MCH (25.7-32.2) pg MCHC (32.2-35.5) g/dl RDW Std Deviation (35.1-43.9) fL Plt Count (163-337) K/mm3 MPV (9.4-12.3) fl Neut % (Auto) (34.0-67.9) % Lymph % (Auto) (21.8-53.1) % [place] % (Auto) (5.3-12.2) % Eos % (Auto) (0.8-7.0) Baso % (Auto) (0.1-1.2) % Neut # (Auto) (1.78-5.38) K/mm3 Lymph # (Auto) (1.32-3.57) K/mm3 [place] # (Auto) (0.30-0.82) K/mm3 Eos # (Auto) (0.04-0.54) K/mm3 Baso # (Auto) (0.01-0.08) K/mm3 Manual Slide Review Sodium (136-145) mEq/L Potassium (3.5-5.1) mEq/L Chloride (98-107) mEq/L Carbon Dioxide (21-32) mEq/L Anion Gap (5-15) BUN (7-18) mg/dL Creatinine (0.7-1.3) mg/dL Est Cr Clr Drug Dosing mL/min Estimated GFR (MDRD) (>60) mL/min BUN/Creatinine Ratio (14-18) Glucose (80-115) mg/dL POC Glucose 147 H (80-115) mg/dL Hemoglobin A1c (4.50-6.20) % Calcium (8.5-10.1) mg/dL Total Bilirubin (0.2-1.0) mg/dL AST (15-37) U/L ALT (16-63) U/L Alkaline Phosphatase (46-116) U/L Total Protein (6.4-8.2) g/dl Albumin (3.4-5.0) g/dl Globulin gm/dL Albumin/Globulin Ratio (1-2) Chris Results Last 24 Hours: Microbiology 06/29/18 17:35 Gram Stain - Final Appendix Anaerobic Culture - Preliminary Gram Negative Rods Gram Negative Rods#2 Streptococcus Salivarius Med Orders - Current: Current Medications Acetaminophen (Tylenol) 600 mg RECTAL Q4H PRN PRN Reason: fever Last Admin: 06/30/18 17:12 Dose: 650 mg Enoxaparin Sodium (Lovenox) 40 mg SUBCUT Q24H [facility] Last Admin: 06/29/18 21:54 Dose: 40 mg Potassium Chloride/Dextrose/Sod Cl (D5 1/2 Ns W/ 20 Meq/L Kcl) 1,000 mls @ 125 mls/hr IV ASDIRECTED [facility] Last Admin: 06/30/18 13:28 Dose: 125 mls/hr Ertapenem 1 gm/ Sodium (Chloride) 100 mls @ 200 mls/hr IV Q24H [facility] Last Admin: 06/30/18 17:10 Dose: 200 mls/hr Sodium Chloride (Normal Saline) 1,000 mls @ 150 mls/hr IV ONETIME ONE Stop: 07/01/18 00:17 Insulin Human Lispro (Humalog) 0 unit SUBCUT Q6H [facility]; Protocol Last Admin: 06/30/18 13:24 Dose: 1 unit Morphine Sulfate (Morphine) 4 mg IVPUSH Q1H PRN PRN Reason: Pain (severe 7-10) Stop: 06/30/18 21:01 Last Admin: 06/30/18 13:26 Dose: 4 mg Ondansetron HCl (Zofran) 4 mg IVPUSH Q6H PRN PRN Reason: Nausea/Vomiting Pantoprazole Sodium (Protonix Iv) 40 mg IVPUSH DAILY [facility] Last Admin: 06/30/18 09:03 Dose: 40 mg Discontinued Medications Bupivacaine HCl (Marcaine 0.5%) Confirm Administered Dose 30 ml .ROUTE .STK-MED ONE Stop: 06/29/18 15:47 Last Admin: 06/29/18 17:05 Dose: 30 ml Ertapenem (Invanz) Confirm Administered Dose 1 gm .ROUTE .STK-MED ONE Stop: 06/29/18 17:00 Fentanyl (Sublimaze) Confirm Administered Dose 250 mcg .ROUTE .STK-MED ONE Stop: 06/29/18 15:44 Fentanyl (Sublimaze) Confirm Administered Dose 250 mcg .ROUTE .STK-MED ONE Stop: 06/29/18 18:08 Fentanyl (Sublimaze) 50 mcg IVPUSH Q5M PRN PRN Reason: Pain Hydromorphone HCl (Dilaudid) 0.5 mg IVPUSH ONETIME ONE Stop: 06/29/18 13:53 Last Admin: 06/29/18 14:18 Dose: 0.5 mg Hydromorphone HCl (Dilaudid) 0.5 mg IVPUSH ONETIME ONE Stop: 06/29/18 15:03 Last Admin: 06/29/18 15:52 Dose: 0.5 mg Hydromorphone HCl (Dilaudid) Confirm Administered Dose 0.5 mg .ROUTE .STK-MED ONE Stop: 06/29/18 17:39 Hydromorphone HCl (Dilaudid) Confirm Administered Dose 0.5 mg .ROUTE .STK-MED ONE Stop: 06/29/18 17:39 Hydromorphone HCl (Dilaudid) 0.5 mg IVPUSH ONETIME PRN PRN Reason: For pain Sodium Chloride (Normal Saline) 1,000 mls @ 250 mls/hr IV ONETIME ONE Stop: 06/29/18 17:51 Last Admin: 06/29/18 14:17 Dose: 250 mls/hr Lidocaine HCl (Xylocaine-Mpf 1%) Confirm Administered Dose 4 mls @ as directed .ROUTE .STK-MED ONE Stop: 06/29/18 15:44 Lactated Ringer's (Ringers, Lactated) Confirm Administered Dose 1,000 mls @ as directed .ROUTE .STK-MED ONE Stop: 06/29/18 17:11 Lactated Ringer's (Ringers, Lactated) Confirm Administered Dose 1,000 mls @ as directed .ROUTE .STK-MED ONE Stop: 06/29/18 17:32 Insulin Human Lispro (Humalog) 0 unit SUBCUT Q6H [facility]; Protocol Last Admin: 06/30/18 07:50 Dose: Not Given Midazolam HCl (Versed 1 Mg/Ml) Confirm Administered Dose 2 mg .ROUTE .STK-MED ONE Stop: 06/29/18 15:44 Ondansetron HCl (Zofran) 4 mg IVPUSH ONETIME ONE Stop: 06/29/18 13:53 Last Admin: 06/29/18 14:22 Dose: 4 mg Ondansetron HCl (Zofran) Confirm Administered Dose 4 mg .ROUTE .STK-MED ONE Stop: 06/29/18 15:43 Phenylephrine HCl (Phenylephrine In Ns 100 Mcg/Ml) Confirm Administered Dose 1 mg .ROUTE .STK-MED ONE Stop: 06/29/18 17:12 Propofol (Diprivan 20 Ml) Confirm Administered Dose 200 mg .ROUTE .STK-MED ONE Stop: 06/29/18 15:44 Rocuronium [place] (Zemuron) Confirm Administered Dose 50 mg .ROUTE .STK-MED ONE Stop: 06/29/18 15:43 Rocuronium [place] (Zemuron) Confirm Administered Dose 50 mg .ROUTE .STK-MED ONE Stop: 06/29/18 17:38 - Exam Quality Assessment: DVT Prophylaxis General: Alert, Oriented, Cooperative, No Acute Distress HEENT: Pupils Equal, Pupils Reactive, EOMI Neck: Trachea Midline, No JVD Lungs: Normal Respiratory Effort, Decreased Breath Sounds Cardiovascular: Regular Rate, Regular Rhythm GI/Abdominal Exam: Normal Bowel Sounds, Soft, No Organomegaly, Tender (Male) Exam: Deferred Back Exam: Normal Inspection Extremities: Non-Tender, Normal Capillary Refill Skin: Warm Wound/Incisions: Healing Well Neurological: No New Focal Deficit Psy/Mental Status: Alert - Problem List & Annotations (1) Diabetes mellitus SNOMED Code(s): 06275925 Code(s): E11.9 - TYPE 2 DIABETES MELLITUS WITHOUT COMPLICATIONS Status: Acute Current Visit: Yes (2) Appendicitis SNOMED Code(s): 74396210 Code(s): K37 - UNSPECIFIED APPENDICITIS Status: Acute Current Visit: Yes Qualifiers: Appendicitis type: acute appendicitis - Problem List Review Problem List Initiated/Reviewed/Updated: Yes - My Orders Last 24 Hours: My Active Orders 06/29/18 20:54 Accu Check [Blood Glucose Check, Bedside] [RC] Q6HR 06/30/18 06:00 Insulin Lispro [HumaLOG] 0 unit SUBCUT Q6H - Plan Plan:: Impression: POD 1, S/P appendectomy Newly diagnosed diabetes mellitus type 2 Plan: Begin Humalog sliding scale BP mgt per Primary service Pain mgt per Primary service Diabetic teaching Dietary consult DVT/GI prophylaxis
[2018-06-30] MEDS: Enoxaparin 40 MG/0.4 ML Syringe SUBCUT SCH (21:46)
[2018-07-01] MEDS ORDERED: Morphine 4 MG/ML Syringe SUBCUT PRN (05:47)
[2018-07-01] MEDS: Insulin Lispro 100 Unit/ML 3 ML KwikPen SUBCUT SCH ×4 (05:47→23:55)
[2018-07-01] MEDS: D5 1/2 NS w/ 20 mEq/L KCl 1,000 ML IV SCH ×3 (06:05→23:59)
[2018-07-01] MEDS: Morphine 4 MG/ML Syringe IVPUSH PRN ×4 (06:09→21:40)
[2018-07-01] MEDS: Pantoprazole 40 MG Vial IVPUSH SCH (08:57)
--- NOTE | 2018-07-01 09:28 | PCM.CONSN ---
- General Info Date of Service: 07/01/18 Functional Status: Reports: Pain Controlled, Urinating - Review of Systems General: Reports: No Symptoms HEENT: Reports: No Symptoms Pulmonary: Reports: No Symptoms Cardiovascular: Reports: No Symptoms Gastrointestinal: Reports: No Symptoms Genitourinary: Reports: No Symptoms Musculoskeletal: Reports: No Symptoms Skin: Reports: No Symptoms Neurological: Reports: No Symptoms Psychiatric: Reports: No Symptoms - Patient Data Vitals - Most Recent: Last Vital Signs Temp 36.9 C 07/01/18 09:01 Pulse 91 07/01/18 09:01 Resp 18 07/01/18 09:01 BP 144/77 H 07/01/18 09:01 Pulse Ox 97 07/01/18 09:01 Weight - Most Recent: 85.774 kg I&O - Last 24 Hours: Intake & Output 06/30/18 07/01/18 07/01/18 22:59 06:59 14:59 Intake Total 1349 1190 Output Total 745 990 Balance 604 200 Lab Results Last 24 Hours: Laboratory Results - last 24 hr 06/30/18 06/30/18 06/30/18 Range/Units 11:17 15:53 23:40 WBC (4.23-9.07) K/mm3 RBC (4.63-6.08) M/mm3 Hgb (13.7-17.5) gm/L Hct (40.1-51.0) % MCV (79.0-92.2) fl MCH (25.7-32.2) pg MCHC (32.2-35.5) g/dl RDW Std Deviation (35.1-43.9) fL Plt Count (163-337) K/mm3 MPV (9.4-12.3) fl Neut % (Auto) (34.0-67.9) % Lymph % (Auto) (21.8-53.1) % [place] % (Auto) (5.3-12.2) % Eos % (Auto) (0.8-7.0) Baso % (Auto) (0.1-1.2) % Neut # (Auto) (1.78-5.38) K/mm3 Lymph # (Auto) (1.32-3.57) K/mm3 [place] # (Auto) (0.30-0.82) K/mm3 Eos # (Auto) (0.04-0.54) K/mm3 Baso # (Auto) (0.01-0.08) K/mm3 Manual Slide Review Sodium (136-145) mEq/L Potassium (3.5-5.1) mEq/L Chloride (98-107) mEq/L Carbon Dioxide (21-32) mEq/L Anion Gap (5-15) BUN (7-18) mg/dL Creatinine (0.7-1.3) mg/dL Est Cr Clr Drug Dosing mL/min Estimated GFR (MDRD) (>60) mL/min BUN/Creatinine Ratio (14-18) Glucose (80-115) mg/dL POC Glucose 168 H 147 H 152 H (80-115) mg/dL Calcium (8.5-10.1) mg/dL 07/01/18 07/01/18 07/01/18 Range/Units 05:37 05:50 05:50 WBC 8.22 (4.23-9.07) K/mm3 RBC 4.30 L (4.63-6.08) M/mm3 Hgb 12.6 L (13.7-17.5) gm/L Hct 38.6 L (40.1-51.0) % MCV 89.8 (79.0-92.2) fl MCH 29.3 (25.7-32.2) pg MCHC 32.6 (32.2-35.5) g/dl RDW Std Deviation 41.9 (35.1-43.9) fL Plt Count 188 (163-337) K/mm3 MPV 8.6 L (9.4-12.3) fl Neut % (Auto) 82.4 H (34.0-67.9) % Lymph % (Auto) 9.7 L (21.8-53.1) % [place] % (Auto) 6.9 (5.3-12.2) % Eos % (Auto) 0.7 L (0.8-7.0) Baso % (Auto) 0.1 (0.1-1.2) % Neut # (Auto) 6.76 H (1.78-5.38) K/mm3 Lymph # (Auto) 0.80 L (1.32-3.57) K/mm3 [place] # (Auto) 0.57 (0.30-0.82) K/mm3 Eos # (Auto) 0.06 (0.04-0.54) K/mm3 Baso # (Auto) 0.01 (0.01-0.08) K/mm3 Manual Slide Review Abnormal smear Sodium 136 (136-145) mEq/L Potassium 3.8 (3.5-5.1) mEq/L Chloride 104 (98-107) mEq/L Carbon Dioxide 25 (21-32) mEq/L Anion Gap 10.8 (5-15) BUN 8 (7-18) mg/dL Creatinine 1.1 (0.7-1.3) mg/dL Est Cr Clr Drug Dosing 62.83 mL/min Estimated GFR (MDRD) > 60 (>60) mL/min BUN/Creatinine Ratio 7.3 L (14-18) Glucose 156 H (80-115) mg/dL POC Glucose 159 H (80-115) mg/dL Calcium 7.6 L (8.5-10.1) mg/dL Chris Results Last 24 Hours: Microbiology 06/29/18 17:35 Gram Stain - Final Appendix Anaerobic Culture - Preliminary Gram Negative Rods Gram Negative Rods#2 Streptococcus Salivarius Med Orders - Current: Current Medications Acetaminophen (Tylenol) 600 mg RECTAL Q4H PRN PRN Reason: fever Last Admin: 06/30/18 17:12 Dose: 650 mg Enoxaparin Sodium (Lovenox) 40 mg SUBCUT Q24H [facility] Last Admin: 06/30/18 21:46 Dose: 40 mg Potassium Chloride/Dextrose/Sod Cl (D5 1/2 Ns W/ 20 Meq/L Kcl) 1,000 mls @ 125 mls/hr IV ASDIRECTED [facility] Last Admin: 07/01/18 06:05 Dose: 125 mls/hr Ertapenem 1 gm/ Sodium (Chloride) 100 mls @ 200 mls/hr IV Q24H [facility] Last Admin: 06/30/18 17:10 Dose: 200 mls/hr Insulin Human Lispro (Humalog) 0 unit SUBCUT Q6H [facility]; Protocol Last Admin: 07/01/18 05:47 Dose: 1 unit Morphine Sulfate (Morphine) 4 mg IVPUSH Q1H PRN PRN Reason: Pain Last Admin: 07/01/18 06:09 Dose: 4 mg Ondansetron HCl (Zofran) 4 mg IVPUSH Q6H PRN PRN Reason: Nausea/Vomiting Pantoprazole Sodium (Protonix Iv) 40 mg IVPUSH DAILY [facility] Last Admin: 07/01/18 08:57 Dose: 40 mg Discontinued Medications Bupivacaine HCl (Marcaine 0.5%) Confirm Administered Dose 30 ml .ROUTE .STK-MED ONE Stop: 06/29/18 15:47 Last Admin: 06/29/18 17:05 Dose: 30 ml Ertapenem (Invanz) Confirm Administered Dose 1 gm .ROUTE .STK-MED ONE Stop: 06/29/18 17:00 Fentanyl (Sublimaze) Confirm Administered Dose 250 mcg .ROUTE .STK-MED ONE Stop: 06/29/18 15:44 Fentanyl (Sublimaze) Confirm Administered Dose 250 mcg .ROUTE .STK-MED ONE Stop: 06/29/18 18:08 Fentanyl (Sublimaze) 50 mcg IVPUSH Q5M PRN PRN Reason: Pain Hydromorphone HCl (Dilaudid) 0.5 mg IVPUSH ONETIME ONE Stop: 06/29/18 13:53 Last Admin: 06/29/18 14:18 Dose: 0.5 mg Hydromorphone HCl (Dilaudid) 0.5 mg IVPUSH ONETIME ONE Stop: 06/29/18 15:03 Last Admin: 06/29/18 15:52 Dose: 0.5 mg Hydromorphone HCl (Dilaudid) Confirm Administered Dose 0.5 mg .ROUTE .STK-MED ONE Stop: 06/29/18 17:39 Hydromorphone HCl (Dilaudid) Confirm Administered Dose 0.5 mg .ROUTE .STK-MED ONE Stop: 06/29/18 17:39 Hydromorphone HCl (Dilaudid) 0.5 mg IVPUSH ONETIME PRN PRN Reason: For pain Sodium Chloride (Normal Saline) 1,000 mls @ 250 mls/hr IV ONETIME ONE Stop: 06/29/18 17:51 Last Admin: 06/29/18 14:17 Dose: 250 mls/hr Lidocaine HCl (Xylocaine-Mpf 1%) Confirm Administered Dose 4 mls @ as directed .ROUTE .STK-MED ONE Stop: 06/29/18 15:44 Lactated Ringer's (Ringers, Lactated) Confirm Administered Dose 1,000 mls @ as directed .ROUTE .STK-MED ONE Stop: 06/29/18 17:11 Lactated Ringer's (Ringers, Lactated) Confirm Administered Dose 1,000 mls @ as directed .ROUTE .STK-MED ONE Stop: 06/29/18 17:32 Sodium Chloride (Normal Saline) 1,000 mls @ 150 mls/hr IV ONETIME ONE Stop: 07/01/18 00:17 Last Admin: 06/30/18 19:45 Dose: Not Given Sodium Chloride (Normal Saline) 1,000 mls @ 999 mls/hr IV ONETIME ONE Stop: 06/30/18 19:23 Last Admin: 06/30/18 18:45 Dose: 999 mls/hr Insulin Human Lispro (Humalog) 0 unit SUBCUT Q6H [facility]; Protocol Last Admin: 06/30/18 07:50 Dose: Not Given Midazolam HCl (Versed 1 Mg/Ml) Confirm Administered Dose 2 mg .ROUTE .STK-MED ONE Stop: 06/29/18 15:44 Morphine Sulfate (Morphine) 4 mg IVPUSH Q1H PRN PRN Reason: Pain (severe 7-10) Stop: 06/30/18 21:01 Last Admin: 06/30/18 19:37 Dose: 4 mg Ondansetron HCl (Zofran) 4 mg IVPUSH ONETIME ONE Stop: 06/29/18 13:53 Last Admin: 06/29/18 14:22 Dose: 4 mg Ondansetron HCl (Zofran) Confirm Administered Dose 4 mg .ROUTE .STK-MED ONE Stop: 06/29/18 15:43 Phenylephrine HCl (Phenylephrine In Ns 100 Mcg/Ml) Confirm Administered Dose 1 mg .ROUTE .STK-MED ONE Stop: 06/29/18 17:12 Propofol (Diprivan 20 Ml) Confirm Administered Dose 200 mg .ROUTE .STK-MED ONE Stop: 06/29/18 15:44 Rocuronium [place] (Zemuron) Confirm Administered Dose 50 mg .ROUTE .STK-MED ONE Stop: 06/29/18 15:43 Rocuronium [place] (Zemuron) Confirm Administered Dose 50 mg .ROUTE .STK-MED ONE Stop: 09/28/18 17:38 - Exam Quality Assessment: DVT Prophylaxis General: Alert, Oriented, Cooperative HEENT: Pupils Equal, Pupils Reactive, EOMI Neck: Trachea Midline, No JVD Lungs: Normal Respiratory Effort, Decreased Breath Sounds Cardiovascular: Regular Rate, Regular Rhythm GI/Abdominal Exam: Normal Bowel Sounds, Soft, No Organomegaly, No Distention, Tender (Male) Exam: Deferred Back Exam: Normal Inspection Extremities: Normal Inspection, Non-Tender, Normal Capillary Refill Skin: Warm Neurological: No New Focal Deficit Psy/Mental Status: Alert Consult PN Assessment/Plan POD#: 2 (1) Diabetes mellitus SNOMED Code(s): 15941191 Code(s): E11.9 - TYPE 2 DIABETES MELLITUS WITHOUT COMPLICATIONS Current Visit: Yes (2) Appendicitis SNOMED Code(s): 51455771 Code(s): K37 - UNSPECIFIED APPENDICITIS Current Visit: Yes Qualifiers: Appendicitis type: acute appendicitis Problem List Initiated/Reviewed/Updated: Yes Plan: Impression: POD 2, S/P appendectomy Newly diagnosed diabetes mellitus type 2 Plan: NPO per Gen Surg Begin Humalog sliding scale BP mgt per Primary service Pain mgt per Primary service Diabetic teaching Dietary consult DVT/GI prophylaxis
--- NOTE | 2018-07-01 09:34 | PCM48HPAN ---
Post Anesthesia Note - EVALUATION WITHIN 48HRS OF ANESTHETIC Vital Signs in Normal Range: Yes Patient Participated in Evaluation: Yes Respiratory Function Stable: Yes Airway Patent: Yes Cardiovascular Function Stable: Yes Hydration Status Stable: Yes Pain Control Satisfactory: Yes Nausea and Vomiting Control Satisfactory: Yes Mental Status Recovered: Yes Pulse Rate: 91 Resp Rate: 18 Temperature: 36.9 C Blood Pressure: 144/77 - COMMENTS/OBSERVATIONS Free Text/Narrative:: no anesthesia complications noted
[2018-07-01] MEDS: Levofloxacin/Dextrose 5%-Water 750 MG in Premix Bag 1 BAG IV SCH (16:03)
[2018-07-01] MEDS ORDERED: hydrALAZINE 20 MG/ML SDV IVPUSH PRN (16:58)
[2018-07-01] MEDS: metroNIDAZOLE/Normal Saline 500 MG in Premix Bag 1 BAG IV SCH ×2 (17:44→18:25)
[2018-07-01] MEDS: Enoxaparin 40 MG/0.4 ML Syringe SUBCUT SCH (21:28)
[2018-07-02] MEDS: metroNIDAZOLE/Normal Saline 500 MG in Premix Bag 1 BAG IV SCH ×3 (04:09→18:33)
[2018-07-02] MEDS: Insulin Lispro 100 Unit/ML 3 ML KwikPen SUBCUT SCH ×3 (06:57→18:34)
--- NOTE | 2018-07-02 07:26 | PCM.CONSN ---
- General Info Date of Service: 07/02/18 Admission Dx/Problem (Free Text): Appendicitis Subjective Update: In to see Iraj. He is lying in bed with an NG tube in place. He reports pain is much, much better. He has no complaints at this time. We discussed his new onset diabetes and how we will talk about it more in detail as he gets closer to discharge. Diabetic ed and supervisor unloading consults are ordered. Sugars have been stable. Pain is controlled. Nursing reports he has had a BM recently. No patient or nursing concerns. Functional Status: Reports: Pain Controlled, Urinating, Incentive Spirometry. Denies: Tolerating Diet (NPO), New Symptoms - Review of Systems General: Reports: No Symptoms, Weakness, Fatigue. Denies: Fever, Malaise, Chills HEENT: Reports: No Symptoms. Denies: Headaches, Rhinitis Pulmonary: Reports: No Symptoms. Denies: Shortness of Breath, Cough, Sputum Cardiovascular: Reports: No Symptoms. Denies: Chest Pain, Palpitations, Dyspnea on Exertion, Edema Gastrointestinal: Reports: No Symptoms, Abdominal Pain, Decreased Appetite. Denies: Constipation, Diarrhea, Difficulty Swallowing, Nausea, Vomiting Genitourinary: Reports: No Symptoms Musculoskeletal: Reports: No Symptoms. Denies: Neck Pain Skin: Reports: No Symptoms Neurological: Reports: No Symptoms Psychiatric: Reports: No Symptoms - Patient Data Vitals - Most Recent: Last Vital Signs Temp 98.6 F 07/02/18 04:07 Pulse 89 07/02/18 04:07 Resp 18 07/02/18 04:07 BP 150/80 H 07/02/18 04:07 Pulse Ox 95 07/02/18 04:07 Weight - Most Recent: 186 lb 8 oz I&O - Last 24 Hours: Intake & Output 07/01/18 07/02/18 07/02/18 22:59 06:59 14:59 Intake Total 1900 50 Output Total 1380 1575 Balance 520 -1525 Lab Results Last 24 Hours: Laboratory Results - last 24 hr 07/01/18 07/01/18 07/01/18 Range/Units 11:41 17:25 23:05 POC Glucose 132 H 180 H 148 H (80-115) mg/dL 07/02/18 Range/Units 06:56 POC Glucose 163 H (80-115) mg/dL Chris Results Last 24 Hours: Microbiology 06/29/18 17:35 Gram Stain - Final Appendix Anaerobic Culture - Preliminary Escherichia Coli Gram Negative Rods Streptococcus Salivarius Anaerobic Gram Negative Yves Med Orders - Current: Current Medications Acetaminophen (Tylenol) 600 mg RECTAL Q4H PRN PRN Reason: fever Last Admin: 06/30/18 17:12 Dose: 650 mg Enoxaparin Sodium (Lovenox) 40 mg SUBCUT Q24H [facility] Last Admin: 07/01/18 21:28 Dose: 40 mg Hydralazine HCl (Apresoline) 20 mg IVPUSH Q6H PRN PRN Reason: Hypertension Potassium Chloride/Dextrose/Sod Cl (D5 1/2 Ns W/ 20 Meq/L Kcl) 1,000 mls @ 125 mls/hr IV ASDIRECTED [facility] Last Admin: 07/01/18 23:59 Dose: 125 mls/hr Levofloxacin/Dextrose 750 mg/ (Premix) 150 mls @ 100 mls/hr IV DAILY@1700 [facility] Last Admin: 07/01/18 16:03 Dose: 100 mls/hr Metronidazole 500 mg/ Premix 100 mls @ 200 mls/hr IV Q8H [facility] Last Admin: 07/02/18 04:09 Dose: 200 mls/hr Insulin Human Lispro (Humalog) 0 unit SUBCUT Q6H [facility]; Protocol Last Admin: 07/02/18 06:57 Dose: 1 unit Morphine Sulfate (Morphine) 4 mg IVPUSH Q1H PRN PRN Reason: Pain Last Admin: 07/01/18 21:40 Dose: 4 mg Ondansetron HCl (Zofran) 4 mg IVPUSH Q6H PRN PRN Reason: Nausea/Vomiting Pantoprazole Sodium (Protonix Iv) 40 mg IVPUSH DAILY [facility] Last Admin: 07/01/18 08:57 Dose: 40 mg Discontinued Medications Bupivacaine HCl (Marcaine 0.5%) Confirm Administered Dose 30 ml .ROUTE .STK-MED ONE Stop: 06/29/18 15:47 Last Admin: 06/29/18 17:05 Dose: 30 ml Ertapenem (Invanz) Confirm Administered Dose 1 gm .ROUTE .STK-MED ONE Stop: 06/29/18 17:00 Fentanyl (Sublimaze) Confirm Administered Dose 250 mcg .ROUTE .STK-MED ONE Stop: 06/29/18 15:44 Fentanyl (Sublimaze) Confirm Administered Dose 250 mcg .ROUTE .STK-MED ONE Stop: 06/29/18 18:08 Fentanyl (Sublimaze) 50 mcg IVPUSH Q5M PRN PRN Reason: Pain Hydromorphone HCl (Dilaudid) 0.5 mg IVPUSH ONETIME ONE Stop: 06/29/18 13:53 Last Admin: 06/29/18 14:18 Dose: 0.5 mg Hydromorphone HCl (Dilaudid) 0.5 mg IVPUSH ONETIME ONE Stop: 06/29/18 15:03 Last Admin: 06/29/18 15:52 Dose: 0.5 mg Hydromorphone HCl (Dilaudid) Confirm Administered Dose 0.5 mg .ROUTE .STK-MED ONE Stop: 06/29/18 17:39 Hydromorphone HCl (Dilaudid) Confirm Administered Dose 0.5 mg .ROUTE .STK-MED ONE Stop: 06/29/18 17:39 Hydromorphone HCl (Dilaudid) 0.5 mg IVPUSH ONETIME PRN PRN Reason: For pain Sodium Chloride (Normal Saline) 1,000 mls @ 250 mls/hr IV ONETIME ONE Stop: 06/29/18 17:51 Last Admin: 06/29/18 14:17 Dose: 250 mls/hr Lidocaine HCl (Xylocaine-Mpf 1%) Confirm Administered Dose 4 mls @ as directed .ROUTE .STK-MED ONE Stop: 06/29/18 15:44 Lactated Ringer's (Ringers, Lactated) Confirm Administered Dose 1,000 mls @ as directed .ROUTE .STK-MED ONE Stop: 06/29/18 17:11 Lactated Ringer's (Ringers, Lactated) Confirm Administered Dose 1,000 mls @ as directed .ROUTE .STK-MED ONE Stop: 06/29/18 17:32 Ertapenem 1 gm/ Sodium (Chloride) 100 mls @ 200 mls/hr IV Q24H [facility] Last Admin: 06/30/18 17:10 Dose: 200 mls/hr Sodium Chloride (Normal Saline) 1,000 mls @ 150 mls/hr IV ONETIME ONE Stop: 07/01/18 00:17 Last Admin: 06/30/18 19:45 Dose: Not Given Sodium Chloride (Normal Saline) 1,000 mls @ 999 mls/hr IV ONETIME ONE Stop: 06/30/18 19:23 Last Admin: 06/30/18 18:45 Dose: 999 mls/hr Insulin Human Lispro (Humalog) 0 unit SUBCUT Q6H [facility]; Protocol Last Admin: 06/30/18 07:50 Dose: Not Given Midazolam HCl (Versed 1 Mg/Ml) Confirm Administered Dose 2 mg .ROUTE .STK-MED ONE Stop: 06/29/18 15:44 Morphine Sulfate (Morphine) 4 mg IVPUSH Q1H PRN PRN Reason: Pain (severe 7-10) Stop: 06/30/18 21:01 Last Admin: 06/30/18 19:37 Dose: 4 mg Ondansetron HCl (Zofran) 4 mg IVPUSH ONETIME ONE Stop: 06/29/18 13:53 Last Admin: 06/29/18 14:22 Dose: 4 mg Ondansetron HCl (Zofran) Confirm Administered Dose 4 mg .ROUTE .STK-MED ONE Stop: 06/29/18 15:43 Phenylephrine HCl (Phenylephrine In Ns 100 Mcg/Ml) Confirm Administered Dose 1 mg .ROUTE .STK-MED ONE Stop: 06/29/18 17:12 Propofol (Diprivan 20 Ml) Confirm Administered Dose 200 mg .ROUTE .STK-MED ONE Stop: 06/29/18 15:44 Rocuronium [place] (Zemuron) Confirm Administered Dose 50 mg .ROUTE .STK-MED ONE Stop: 06/29/18 15:43 Rocuronium [place] (Zemuron) Confirm Administered Dose 50 mg .ROUTE .STK-MED ONE Stop: 06/29/18 17:38 - Exam Quality Assessment: DVT Prophylaxis General: Alert, Oriented, Cooperative, No Acute Distress HEENT: Pupils Equal, Pupils Reactive, EOMI, Mucous Membr. Moist/Vincent Neck: Supple, Trachea Midline Lungs: Clear to Auscultation, Normal Respiratory Effort Cardiovascular: Regular Rate, Regular Rhythm GI/Abdominal Exam: Soft, No Organomegaly, No Distention, Tender, Abnormal Bowel Sounds (Male) Exam: Deferred Extremities: Normal Inspection, Normal Range of Motion, Non-Tender, No Pedal Edema, Normal Capillary Refill Peripheral Pulses: 4+: Radial (L), Radial (R), Dorsalis Pedis (L), Dorsalis Pedis (R) Skin: Warm, Dry, Intact Neurological: No New Focal Deficit Psy/Mental Status: Alert, Normal Affect, Normal Mood Consult PN Assessment/Plan POD#: 3 (1) Rupture of appendix SNOMED Code(s): 20153904 Code(s): K35.2 - ACUTE APPENDICITIS WITH GENERALIZED PERITONIT * DO NOT USE * Priority: High Current Visit: Yes (2) Diabetes mellitus, new onset SNOMED Code(s): 142301642, 703652608 Code(s): E11.9 - TYPE 2 DIABETES MELLITUS WITHOUT COMPLICATIONS Priority: High Current Visit: Yes (3) Appendicitis SNOMED Code(s): 08121751 Code(s): K37 - UNSPECIFIED APPENDICITIS Priority: High Current Visit: Yes Qualifiers: Appendicitis type: acute appendicitis Problem List Initiated/Reviewed/Updated: Yes Plan: Impression: S/P laparoscopic appendectomy converted to open appendectomy -Post-Op day 3 -Prolonged appendiceal perforation with abscess -NPO per general surgery; NG tube in place -Pain management per primary service -BP/HR management per primary service -NATALYA drain in place -IV fluids per primary service -Awaiting return or bowel function - expect prolonged ileus -IV antibiotics per primary service -Dulcolax suppositories and maalox to assist boel function per primary team Newly diagnosed diabetes mellitus type 2 -A1C 7.3 -Sliding scale insulin -Diabetic nurse educator consult -[employer] - can hold off until off NPO status if needed -Q6HR blood glucose checks -Lipid panel in AM -Urine microalbumin 6.8 (WNL) -Start metformin once diet is restarted -Will need primary care follow-up on discharge Plan: Consult ordered per Dr. Sarmiento, general surgery No home medications Other orders as indicated above Other labs per primary team DVT prophylaxis per primary team: Code status: Full code; PCP: Dr. Al
[2018-07-02] MEDS: D5 1/2 NS w/ 20 mEq/L KCl 1,000 ML IV SCH ×3 (08:08→23:35)
[2018-07-02] MEDS: Pantoprazole 40 MG Vial IVPUSH SCH (08:18)
[2018-07-02] MEDS: Morphine 4 MG/ML Syringe IVPUSH PRN ×3 (11:08→20:51)
--- NOTE | 2018-07-02 11:14 | PCM.PN ---
- General Info Date of Service: 07/02/18 Functional Status: Reports: Pain Controlled, Ambulating, Urinating, Incentive Spirometry - Review of Systems General: Denies: Fever, Chills, Night Sweats, Appetite HEENT: Reports: No Symptoms Pulmonary: Reports: No Symptoms Cardiovascular: Reports: No Symptoms Gastrointestinal: Denies: Difficulty Swallowing, Flatus Genitourinary: Reports: No Symptoms Musculoskeletal: Reports: No Symptoms Skin: Reports: No Symptoms Neurological: Reports: No Symptoms Psychiatric: Reports: No Symptoms - Patient Data Vitals - Most Recent: Last Vital Signs Temp 98.8 F 07/02/18 07:35 Pulse 79 07/02/18 07:35 Resp 20 07/02/18 07:35 BP 148/84 H 07/02/18 07:35 Pulse Ox 93 L 07/02/18 07:35 Weight - Most Recent: 186 lb 8 oz I&O - Last 24 Hours: Intake & Output 07/01/18 07/02/18 07/02/18 22:59 06:59 14:59 Intake Total 1900 1361 Output Total 1380 1725 Balance 520 -364 Lab Results Last 24 Hours: Laboratory Results - last 24 hr 07/01/18 07/01/18 07/01/18 Range/Units 11:41 17:25 23:05 POC Glucose 132 H 180 H 148 H (80-115) mg/dL Ur Random Microalbumin (1.3-20.0) mg/L 07/02/18 07/02/18 Range/Units 06:56 09:36 POC Glucose 163 H (80-115) mg/dL Ur Random Microalbumin 6.8 (1.3-20.0) mg/L Chris Results Last 24 Hours: Microbiology 06/29/18 17:35 Gram Stain - Final Appendix Anaerobic Culture - Preliminary Escherichia Coli Gram Negative Rods Streptococcus Salivarius Anaerobic Gram Negative Yves Med Orders - Current: Current Medications Acetaminophen (Tylenol) 600 mg RECTAL Q4H PRN PRN Reason: fever Last Admin: 06/30/18 17:12 Dose: 650 mg Enoxaparin Sodium (Lovenox) 40 mg SUBCUT Q24H [facility] Last Admin: 07/01/18 21:28 Dose: 40 mg Hydralazine HCl (Apresoline) 20 mg IVPUSH Q6H PRN PRN Reason: Hypertension Potassium Chloride/Dextrose/Sod Cl (D5 1/2 Ns W/ 20 Meq/L Kcl) 1,000 mls @ 125 mls/hr IV ASDIRECTED [facility] Last Admin: 07/02/18 08:08 Dose: 125 mls/hr Levofloxacin/Dextrose 750 mg/ (Premix) 150 mls @ 100 mls/hr IV DAILY@1700 [facility] Last Admin: 07/01/18 16:03 Dose: 100 mls/hr Metronidazole 500 mg/ Premix 100 mls @ 200 mls/hr IV Q8H [facility] Last Admin: 07/02/18 10:20 Dose: 200 mls/hr Insulin Human Lispro (Humalog) 0 unit SUBCUT Q6H [facility]; Protocol Last Admin: 07/02/18 06:57 Dose: 1 unit Morphine Sulfate (Morphine) 4 mg IVPUSH Q1H PRN PRN Reason: Pain Last Admin: 07/01/18 21:40 Dose: 4 mg Ondansetron HCl (Zofran) 4 mg IVPUSH Q6H PRN PRN Reason: Nausea/Vomiting Pantoprazole Sodium (Protonix Iv) 40 mg IVPUSH DAILY [facility] Last Admin: 07/02/18 08:18 Dose: 40 mg Discontinued Medications Bupivacaine HCl (Marcaine 0.5%) Confirm Administered Dose 30 ml .ROUTE .STK-MED ONE Stop: 06/29/18 15:47 Last Admin: 06/29/18 17:05 Dose: 30 ml Ertapenem (Invanz) Confirm Administered Dose 1 gm .ROUTE .STK-MED ONE Stop: 06/29/18 17:00 Fentanyl (Sublimaze) Confirm Administered Dose 250 mcg .ROUTE .STK-MED ONE Stop: 06/29/18 15:44 Fentanyl (Sublimaze) Confirm Administered Dose 250 mcg .ROUTE .STK-MED ONE Stop: 06/29/18 18:08 Fentanyl (Sublimaze) 50 mcg IVPUSH Q5M PRN PRN Reason: Pain Hydromorphone HCl (Dilaudid) 0.5 mg IVPUSH ONETIME ONE Stop: 06/29/18 13:53 Last Admin: 06/29/18 14:18 Dose: 0.5 mg Hydromorphone HCl (Dilaudid) 0.5 mg IVPUSH ONETIME ONE Stop: 06/29/18 15:03 Last Admin: 06/29/18 15:52 Dose: 0.5 mg Hydromorphone HCl (Dilaudid) Confirm Administered Dose 0.5 mg .ROUTE .STK-MED ONE Stop: 06/29/18 17:39 Hydromorphone HCl (Dilaudid) Confirm Administered Dose 0.5 mg .ROUTE .STK-MED ONE Stop: 06/29/18 17:39 Hydromorphone HCl (Dilaudid) 0.5 mg IVPUSH ONETIME PRN PRN Reason: For pain Sodium Chloride (Normal Saline) 1,000 mls @ 250 mls/hr IV ONETIME ONE Stop: 06/29/18 17:51 Last Admin: 06/29/18 14:17 Dose: 250 mls/hr Lidocaine HCl (Xylocaine-Mpf 1%) Confirm Administered Dose 4 mls @ as directed .ROUTE .STK-MED ONE Stop: 06/29/18 15:44 Lactated Ringer's (Ringers, Lactated) Confirm Administered Dose 1,000 mls @ as directed .ROUTE .STK-MED ONE Stop: 06/29/18 17:11 Lactated Ringer's (Ringers, Lactated) Confirm Administered Dose 1,000 mls @ as directed .ROUTE .STK-MED ONE Stop: 06/29/18 17:32 Ertapenem 1 gm/ Sodium (Chloride) 100 mls @ 200 mls/hr IV Q24H [facility] Last Admin: 06/30/18 17:10 Dose: 200 mls/hr Sodium Chloride (Normal Saline) 1,000 mls @ 150 mls/hr IV ONETIME ONE Stop: 07/01/18 00:17 Last Admin: 06/30/18 19:45 Dose: Not Given Sodium Chloride (Normal Saline) 1,000 mls @ 999 mls/hr IV ONETIME ONE Stop: 06/30/18 19:23 Last Admin: 06/30/18 18:45 Dose: 999 mls/hr Insulin Human Lispro (Humalog) 0 unit SUBCUT Q6H [facility]; Protocol Last Admin: 06/30/18 07:50 Dose: Not Given Midazolam HCl (Versed 1 Mg/Ml) Confirm Administered Dose 2 mg .ROUTE .STK-MED ONE Stop: 06/29/18 15:44 Morphine Sulfate (Morphine) 4 mg IVPUSH Q1H PRN PRN Reason: Pain (severe 7-10) Stop: 06/30/18 21:01 Last Admin: 06/30/18 19:37 Dose: 4 mg Ondansetron HCl (Zofran) 4 mg IVPUSH ONETIME ONE Stop: 06/29/18 13:53 Last Admin: 06/29/18 14:22 Dose: 4 mg Ondansetron HCl (Zofran) Confirm Administered Dose 4 mg .ROUTE .STK-MED ONE Stop: 06/29/18 15:43 Phenylephrine HCl (Phenylephrine In Ns 100 Mcg/Ml) Confirm Administered Dose 1 mg .ROUTE .STK-MED ONE Stop: 06/29/18 17:12 Propofol (Diprivan 20 Ml) Confirm Administered Dose 200 mg .ROUTE .STK-MED ONE Stop: 06/29/18 15:44 Rocuronium [place] (Zemuron) Confirm Administered Dose 50 mg .ROUTE .STK-MED ONE Stop: 06/29/18 15:43 Rocuronium [place] (Zemuron) Confirm Administered Dose 50 mg .ROUTE .STK-MED ONE Stop: 06/29/18 17:38 - Exam General: Alert, Oriented, Cooperative HEENT: Pupils Equal Neck: Supple Lungs: Clear to Auscultation Cardiovascular: Regular Rate GI/Abdominal Exam: Soft, Distended, Abnormal Bowel Sounds. No: Non-Tender, Guarding, Rigid, Rebound (Male) Exam: Normal Inspection, Normal Prostate, Circumcised. No: No Hernia Back Exam: Full Range of Motion Extremities: Normal Inspection Skin: Warm, Dry Wound/Incisions: Dressing Dry and Intact, No Drainage Neurological: No New Focal Deficit Psy/Mental Status: Alert - Problem List Review Problem List Initiated/Reviewed/Updated: Yes - My Orders Last 24 Hours: My Active Orders 07/01/18 16:58 hydrALAZINE [Apresoline] 20 mg IVPUSH Q6H PRN 07/01/18 17:00 Levofloxacin/Dextrose 5%-Water [Levaquin in D5W 750 MG/150 ML] 750 mg Premix Bag 1 bag IV DAILY@1700 07/01/18 19:00 metroNIDAZOLE/Normal Saline [Flagyl 500 MG in NS 100 ML] 500 mg Premix Bag 1 bag IV Q8H 07/02/18 10:47 Notify Provider Consults [RC] ASDIRECTED Consult to Physician [CONS] Routine 07/02/18 11:03 Consult to Billiard Table Repairer [Consult to Diabetic Nurse Specialist] [CONS] Routine - Assessment Assessment:: Stable post laparotomy for prolonged appendiceal perforation with abscess NATALYA drains minimal Awaiting return of bowel function, expect prolonged ileus Will continue abx Provide dulcolox suppositories and maalox to assist bowel function - Plan Plan:: Impression: POD 1, S/P appendectomy Newly diagnosed diabetes mellitus type 2 Plan: Begin Humalog sliding scale BP mgt per Primary service Pain mgt per Primary service Diabetic teaching Dietary consult DVT/GI prophylaxis
[2018-07-02] MEDS: Aluminum Hydroxide/Magnesium Hydroxide/Simethicone Susp 30 ML Cup PO SCH ×4 (11:37→23:35)
[2018-07-02] MEDS: Bisacodyl 10 MG Supp RECTAL SCH (15:24)
[2018-07-02] MEDS: Levofloxacin/Dextrose 5%-Water 750 MG in Premix Bag 1 BAG IV SCH (16:52)
[2018-07-02] MEDS: Enoxaparin 40 MG/0.4 ML Syringe SUBCUT SCH (21:11)
[2018-07-03] MEDS: Insulin Lispro 100 Unit/ML 3 ML KwikPen SUBCUT SCH ×5 (01:37→22:08)
[2018-07-03] MEDS: Morphine 4 MG/ML Syringe IVPUSH PRN ×2 (04:04→14:33)
[2018-07-03] MEDS: metroNIDAZOLE/Normal Saline 500 MG in Premix Bag 1 BAG IV SCH ×3 (04:04→18:00)
[2018-07-03] MEDS: Aluminum Hydroxide/Magnesium Hydroxide/Simethicone Susp 30 ML Cup PO SCH ×3 (04:05→11:52)
[2018-07-03] MEDS: D5 1/2 NS w/ 20 mEq/L KCl 1,000 ML IV SCH (07:38)
[2018-07-03] MEDS: Bisacodyl 10 MG Supp RECTAL SCH (08:36)
[2018-07-03] MEDS: Pantoprazole 40 MG Vial IVPUSH SCH (08:37)
--- NOTE | 2018-07-03 12:47 | PCM.PN ---
- General Info Date of Service: 07/03/18 Functional Status: Reports: Pain Controlled, Ambulating, Urinating, Incentive Spirometry - Review of Systems General: Reports: No Symptoms. Denies: Fever, Chills HEENT: Reports: No Symptoms Pulmonary: Reports: No Symptoms. Denies: Shortness of Breath, Pleuritic Chest Pain, Cough, Wheezing Cardiovascular: Reports: No Symptoms. Denies: Chest Pain Gastrointestinal: Reports: No Symptoms, Flatus Genitourinary: Reports: No Symptoms Musculoskeletal: Reports: No Symptoms Skin: Reports: No Symptoms, Other (blisters lateral to wound caused by tape are resolving) Neurological: Reports: No Symptoms Psychiatric: Reports: No Symptoms - Patient Data Vitals - Most Recent: Last Vital Signs Temp 98.4 F 07/03/18 08:25 Pulse 69 07/03/18 08:25 Resp 12 07/03/18 08:25 BP 153/88 H 07/03/18 08:25 Pulse Ox 93 L 07/03/18 08:25 Weight - Most Recent: 182 lb 11.2 oz I&O - Last 24 Hours: Intake & Output 07/02/18 07/03/18 07/03/18 22:59 06:59 14:59 Intake Total 2663 1778 Output Total 2230 1905 Balance 433 -127 Lab Results Last 24 Hours: Laboratory Results - last 24 hr 07/02/18 07/02/18 07/03/18 Range/Units 17:19 23:31 06:15 WBC (4.23-9.07) K/mm3 RBC (4.63-6.08) M/mm3 Hgb (13.7-17.5) gm/L Hct (40.1-51.0) % MCV (79.0-92.2) fl MCH (25.7-32.2) pg MCHC (32.2-35.5) g/dl RDW Std Deviation (35.1-43.9) fL Plt Count (163-337) K/mm3 MPV (9.4-12.3) fl Neut % (Auto) (34.0-67.9) % Lymph % (Auto) (21.8-53.1) % [place] % (Auto) (5.3-12.2) % Eos % (Auto) (0.8-7.0) Baso % (Auto) (0.1-1.2) % Neut # (Auto) (1.78-5.38) K/mm3 Lymph # (Auto) (1.32-3.57) K/mm3 [place] # (Auto) (0.30-0.82) K/mm3 Eos # (Auto) (0.04-0.54) K/mm3 Baso # (Auto) (0.01-0.08) K/mm3 Sodium (136-145) mEq/L Potassium (3.5-5.1) mEq/L Chloride (98-107) mEq/L Carbon Dioxide (21-32) mEq/L Anion Gap (5-15) BUN (7-18) mg/dL Creatinine (0.7-1.3) mg/dL Est Cr Clr Drug Dosing mL/min Estimated GFR (MDRD) (>60) mL/min BUN/Creatinine Ratio (14-18) Glucose (80-115) mg/dL POC Glucose 157 H 136 H (80-115) mg/dL Calcium (8.5-10.1) mg/dL Magnesium (1.8-2.4) mg/dl Triglycerides 103 (<150) mg/dL Cholesterol 163 (<200) mg/dL LDL Cholesterol Direct 122 H* (<100) mg/dL HDL Cholesterol 32.0 L (40-59) mg/dL 07/03/18 07/03/18 07/03/18 Range/Units 06:15 06:15 06:21 WBC 5.15 (4.23-9.07) K/mm3 RBC 4.49 L (4.63-6.08) M/mm3 Hgb 13.0 L (13.7-17.5) gm/L Hct 39.6 L (40.1-51.0) % MCV 88.2 (79.0-92.2) fl MCH 29.0 (25.7-32.2) pg MCHC 32.8 (32.2-35.5) g/dl RDW Std Deviation 39.8 (35.1-43.9) fL Plt Count 242 (163-337) K/mm3 MPV 8.7 L (9.4-12.3) fl Neut % (Auto) 68.8 H (34.0-67.9) % Lymph % (Auto) 16.3 L (21.8-53.1) % [place] % (Auto) 12.0 (5.3-12.2) % Eos % (Auto) 2.3 (0.8-7.0) Baso % (Auto) 0.2 (0.1-1.2) % Neut # (Auto) 3.54 (1.78-5.38) K/mm3 Lymph # (Auto) 0.84 L (1.32-3.57) K/mm3 [place] # (Auto) 0.62 (0.30-0.82) K/mm3 Eos # (Auto) 0.12 (0.04-0.54) K/mm3 Baso # (Auto) 0.01 (0.01-0.08) K/mm3 Sodium 138 (136-145) mEq/L Potassium 4.1 (3.5-5.1) mEq/L Chloride 106 (98-107) mEq/L Carbon Dioxide 25 (21-32) mEq/L Anion Gap 11.1 (5-15) BUN 7 (7-18) mg/dL Creatinine 1.0 (0.7-1.3) mg/dL Est Cr Clr Drug Dosing 69.12 mL/min Estimated GFR (MDRD) > 60 (>60) mL/min BUN/Creatinine Ratio 7.0 L (14-18) Glucose 155 H (80-115) mg/dL POC Glucose 160 H (80-115) mg/dL Calcium 8.4 L (8.5-10.1) mg/dL Magnesium 2.3 (1.8-2.4) mg/dl Triglycerides (<150) mg/dL Cholesterol (<200) mg/dL LDL Cholesterol Direct (<100) mg/dL HDL Cholesterol (40-59) mg/dL Chris Results Last 24 Hours: Microbiology 06/29/18 17:35 Gram Stain - Final Appendix Anaerobic Culture - Preliminary Escherichia Coli Stenotrophomonas Maltophilia Streptococcus Salivarius Anaerobic Gram Negative Yves Med Orders - Current: Current Medications Acetaminophen (Tylenol) 600 mg RECTAL Q4H PRN PRN Reason: fever Last Admin: 06/30/18 17:12 Dose: 650 mg Bisacodyl (Dulcolax) 10 mg RECTAL DAILY [facility] Last Admin: 07/03/18 08:36 Dose: 10 mg Enoxaparin Sodium (Lovenox) 40 mg SUBCUT Q24H [facility] Last Admin: 07/02/18 21:11 Dose: 40 mg Hydralazine HCl (Apresoline) 20 mg IVPUSH Q6H PRN PRN Reason: Hypertension Potassium Chloride/Dextrose/Sod Cl (D5 1/2 Ns W/ 20 Meq/L Kcl) 1,000 mls @ 125 mls/hr IV ASDIRECTED [facility] Last Admin: 07/03/18 07:38 Dose: 125 mls/hr Levofloxacin/Dextrose 750 mg/ (Premix) 150 mls @ 100 mls/hr IV DAILY@1700 [facility] Last Admin: 07/02/18 16:52 Dose: 100 mls/hr Metronidazole 500 mg/ Premix 100 mls @ 200 mls/hr IV Q8H [facility] Last Admin: 07/03/18 11:41 Dose: 200 mls/hr Insulin Human Lispro (Humalog) 0 unit SUBCUT Q6H [facility]; Protocol Last Admin: 07/03/18 12:03 Dose: Not Given Morphine Sulfate (Morphine) 4 mg IVPUSH Q1H PRN PRN Reason: Pain Last Admin: 07/03/18 04:04 Dose: 4 mg Ondansetron HCl (Zofran) 4 mg IVPUSH Q6H PRN PRN Reason: Nausea/Vomiting Pantoprazole Sodium (Protonix Iv) 40 mg IVPUSH DAILY [facility] Last Admin: 07/03/18 08:37 Dose: 40 mg Discontinued Medications Al Hydroxide/Mg Hydroxide (Mag-Al Plus) 30 ml PO Q4H [facility] Stop: 07/03/18 11:31 Last Admin: 07/03/18 11:52 Dose: 30 ml Bupivacaine HCl (Marcaine 0.5%) Confirm Administered Dose 30 ml .ROUTE .STK-MED ONE Stop: 06/29/18 15:47 Last Admin: 06/29/18 17:05 Dose: 30 ml Ertapenem (Invanz) Confirm Administered Dose 1 gm .ROUTE .STK-MED ONE Stop: 06/29/18 17:00 Fentanyl (Sublimaze) Confirm Administered Dose 250 mcg .ROUTE .STK-MED ONE Stop: 06/29/18 15:44 Fentanyl (Sublimaze) Confirm Administered Dose 250 mcg .ROUTE .STK-MED ONE Stop: 06/29/18 18:08 Fentanyl (Sublimaze) 50 mcg IVPUSH Q5M PRN PRN Reason: Pain Hydromorphone HCl (Dilaudid) 0.5 mg IVPUSH ONETIME ONE Stop: 06/29/18 13:53 Last Admin: 06/29/18 14:18 Dose: 0.5 mg Hydromorphone HCl (Dilaudid) 0.5 mg IVPUSH ONETIME ONE Stop: 06/29/18 15:03 Last Admin: 06/29/18 15:52 Dose: 0.5 mg Hydromorphone HCl (Dilaudid) Confirm Administered Dose 0.5 mg .ROUTE .STK-MED ONE Stop: 06/29/18 17:39 Hydromorphone HCl (Dilaudid) Confirm Administered Dose 0.5 mg .ROUTE .STK-MED ONE Stop: 06/29/18 17:39 Hydromorphone HCl (Dilaudid) 0.5 mg IVPUSH ONETIME PRN PRN Reason: For pain Sodium Chloride (Normal Saline) 1,000 mls @ 250 mls/hr IV ONETIME ONE Stop: 06/29/18 17:51 Last Admin: 06/29/18 14:17 Dose: 250 mls/hr Lidocaine HCl (Xylocaine-Mpf 1%) Confirm Administered Dose 4 mls @ as directed .ROUTE .STK-MED ONE Stop: 06/29/18 15:44 Lactated Ringer's (Ringers, Lactated) Confirm Administered Dose 1,000 mls @ as directed .ROUTE .STK-MED ONE Stop: 06/29/18 17:11 Lactated Ringer's (Ringers, Lactated) Confirm Administered Dose 1,000 mls @ as directed .ROUTE .STK-MED ONE Stop: 06/29/18 17:32 Ertapenem 1 gm/ Sodium (Chloride) 100 mls @ 200 mls/hr IV Q24H [facility] Last Admin: 06/30/18 17:10 Dose: 200 mls/hr Sodium Chloride (Normal Saline) 1,000 mls @ 150 mls/hr IV ONETIME ONE Stop: 07/01/18 00:17 Last Admin: 06/30/18 19:45 Dose: Not Given Sodium Chloride (Normal Saline) 1,000 mls @ 999 mls/hr IV ONETIME ONE Stop: 06/30/18 19:23 Last Admin: 06/30/18 18:45 Dose: 999 mls/hr Insulin Human Lispro (Humalog) 0 unit SUBCUT Q6H [facility]; Protocol Last Admin: 06/30/18 07:50 Dose: Not Given Midazolam HCl (Versed 1 Mg/Ml) Confirm Administered Dose 2 mg .ROUTE .STK-MED ONE Stop: 06/29/18 15:44 Morphine Sulfate (Morphine) 4 mg IVPUSH Q1H PRN PRN Reason: Pain (severe 7-10) Stop: 06/30/18 21:01 Last Admin: 06/30/18 19:37 Dose: 4 mg Ondansetron HCl (Zofran) 4 mg IVPUSH ONETIME ONE Stop: 06/29/18 13:53 Last Admin: 06/29/18 14:22 Dose: 4 mg Ondansetron HCl (Zofran) Confirm Administered Dose 4 mg .ROUTE .STK-MED ONE Stop: 06/29/18 15:43 Phenylephrine HCl (Phenylephrine In Ns 100 Mcg/Ml) Confirm Administered Dose 1 mg .ROUTE .STK-MED ONE Stop: 06/29/18 17:12 Propofol (Diprivan 20 Ml) Confirm Administered Dose 200 mg .ROUTE .STK-MED ONE Stop: 06/29/18 15:44 Rocuronium [place] (Zemuron) Confirm Administered Dose 50 mg .ROUTE .STK-MED ONE Stop: 06/29/18 15:43 Rocuronium [place] (Zemuron) Confirm Administered Dose 50 mg .ROUTE .STK-MED ONE Stop: 06/29/18 17:38 - Exam General: Alert, Oriented, Cooperative, No Acute Distress Lungs: Clear to Auscultation Cardiovascular: Regular Rate GI/Abdominal Exam: Normal Bowel Sounds, Other (wound packing removed) Back Exam: Normal Inspection, Full Range of Motion Extremities: Normal Inspection, Normal Range of Motion, Non-Tender, No Pedal Edema, Normal Capillary Refill Skin: Warm Wound/Incisions: Healing Well Neurological: No New Focal Deficit Psy/Mental Status: Alert - Problem List Review Problem List Initiated/Reviewed/Updated: Yes - My Orders Last 24 Hours: My Active Orders 07/03/18 Breakfast Clear Liquid Diet [DIET] - Assessment Assessment:: Stable, continue Abx, bowel movements positive - Plan Plan:: Impression: POD 1, S/P appendectomy Newly diagnosed diabetes mellitus type 2 Plan: Begin Humalog sliding scale BP mgt per Primary service Pain mgt per Primary service Diabetic teaching Dietary consult DVT/GI prophylaxis NG removed, start clear liquid diet, shower,DC morphine, percocet ordered
--- NOTE | 2018-07-03 13:09 | PCM.CONSN ---
- General Info Date of Service: 07/03/18 Admission Dx/Problem (Free Text): Appendicitis Subjective Update: In to see Iraj. He is lying in bed. His NG tube was removed today and he has had a BM today. Diet was advanced to clear liquids per primary provider. Will stop D5NS with KCl and switch to NS with KCl over concerns over worsening his blood sugars. Rate decreased by primary provider. Lipid panel is back and LDL is elevated with low HLD. Will start statin and metformin once diet is advance to more solid food. Otherwise he reports he is doing well. NATALYA drains are still in place. No nursing concerns. Functional Status: Reports: Pain Controlled, Tolerating Diet, Ambulating, Urinating, Incentive Spirometry. Denies: New Symptoms - Review of Systems General: Reports: No Symptoms. Denies: Fever, Weakness, Fatigue, Malaise, Chills HEENT: Reports: No Symptoms. Denies: Ear Pain, Eye Pain, Headaches, Sore Throat Pulmonary: Reports: No Symptoms. Denies: Shortness of Breath, Cough, Sputum, Wheezing Cardiovascular: Reports: No Symptoms. Denies: Chest Pain, Palpitations, Dyspnea on Exertion, Edema, Lightheadedness Gastrointestinal: Reports: Abdominal Pain (improved - worse with palpitation ), Decreased Appetite, Flatus. Denies: Constipation, Diarrhea, Nausea, Vomiting Genitourinary: Reports: No Symptoms Musculoskeletal: Reports: No Symptoms Skin: Reports: No Symptoms Neurological: Reports: No Symptoms, Confusion Psychiatric: Reports: No Symptoms - Patient Data Vitals - Most Recent: Last Vital Signs Temp 98.4 F 07/03/18 08:25 Pulse 69 07/03/18 08:25 Resp 12 07/03/18 08:25 BP 153/88 H 07/03/18 08:25 Pulse Ox 93 L 07/03/18 08:25 Weight - Most Recent: 182 lb 11.2 oz I&O - Last 24 Hours: Intake & Output 07/02/18 07/03/18 07/03/18 22:59 06:59 14:59 Intake Total 2663 1778 Output Total 2230 1905 Balance 433 -127 Lab Results Last 24 Hours: Laboratory Results - last 24 hr 07/02/18 07/02/18 07/03/18 Range/Units 17:19 23:31 06:15 WBC (4.23-9.07) K/mm3 RBC (4.63-6.08) M/mm3 Hgb (13.7-17.5) gm/L Hct (40.1-51.0) % MCV (79.0-92.2) fl MCH (25.7-32.2) pg MCHC (32.2-35.5) g/dl RDW Std Deviation (35.1-43.9) fL Plt Count (163-337) K/mm3 MPV (9.4-12.3) fl Neut % (Auto) (34.0-67.9) % Lymph % (Auto) (21.8-53.1) % [place] % (Auto) (5.3-12.2) % Eos % (Auto) (0.8-7.0) Baso % (Auto) (0.1-1.2) % Neut # (Auto) (1.78-5.38) K/mm3 Lymph # (Auto) (1.32-3.57) K/mm3 [place] # (Auto) (0.30-0.82) K/mm3 Eos # (Auto) (0.04-0.54) K/mm3 Baso # (Auto) (0.01-0.08) K/mm3 Sodium (136-145) mEq/L Potassium (3.5-5.1) mEq/L Chloride (98-107) mEq/L Carbon Dioxide (21-32) mEq/L Anion Gap (5-15) BUN (7-18) mg/dL Creatinine (0.7-1.3) mg/dL Est Cr Clr Drug Dosing mL/min Estimated GFR (MDRD) (>60) mL/min BUN/Creatinine Ratio (14-18) Glucose (80-115) mg/dL POC Glucose 157 H 136 H (80-115) mg/dL Calcium (8.5-10.1) mg/dL Magnesium (1.8-2.4) mg/dl Triglycerides 103 (<150) mg/dL Cholesterol 163 (<200) mg/dL LDL Cholesterol Direct 122 H* (<100) mg/dL HDL Cholesterol 32.0 L (40-59) mg/dL 07/03/18 07/03/18 07/03/18 Range/Units 06:15 06:15 06:21 WBC 5.15 (4.23-9.07) K/mm3 RBC 4.49 L (4.63-6.08) M/mm3 Hgb 13.0 L (13.7-17.5) gm/L Hct 39.6 L (40.1-51.0) % MCV 88.2 (79.0-92.2) fl MCH 29.0 (25.7-32.2) pg MCHC 32.8 (32.2-35.5) g/dl RDW Std Deviation 39.8 (35.1-43.9) fL Plt Count 242 (163-337) K/mm3 MPV 8.7 L (9.4-12.3) fl Neut % (Auto) 68.8 H (34.0-67.9) % Lymph % (Auto) 16.3 L (21.8-53.1) % [place] % (Auto) 12.0 (5.3-12.2) % Eos % (Auto) 2.3 (0.8-7.0) Baso % (Auto) 0.2 (0.1-1.2) % Neut # (Auto) 3.54 (1.78-5.38) K/mm3 Lymph # (Auto) 0.84 L (1.32-3.57) K/mm3 [place] # (Auto) 0.62 (0.30-0.82) K/mm3 Eos # (Auto) 0.12 (0.04-0.54) K/mm3 Baso # (Auto) 0.01 (0.01-0.08) K/mm3 Sodium 138 (136-145) mEq/L Potassium 4.1 (3.5-5.1) mEq/L Chloride 106 (98-107) mEq/L Carbon Dioxide 25 (21-32) mEq/L Anion Gap 11.1 (5-15) BUN 7 (7-18) mg/dL Creatinine 1.0 (0.7-1.3) mg/dL Est Cr Clr Drug Dosing 69.12 mL/min Estimated GFR (MDRD) > 60 (>60) mL/min BUN/Creatinine Ratio 7.0 L (14-18) Glucose 155 H (80-115) mg/dL POC Glucose 160 H (80-115) mg/dL Calcium 8.4 L (8.5-10.1) mg/dL Magnesium 2.3 (1.8-2.4) mg/dl Triglycerides (<150) mg/dL Cholesterol (<200) mg/dL LDL Cholesterol Direct (<100) mg/dL HDL Cholesterol (40-59) mg/dL Chris Results Last 24 Hours: Microbiology 06/29/18 17:35 Gram Stain - Final Appendix Anaerobic Culture - Preliminary Escherichia Coli Stenotrophomonas Maltophilia Streptococcus Salivarius Anaerobic Gram Negative Yves Med Orders - Current: Current Medications Acetaminophen (Tylenol) 600 mg RECTAL Q4H PRN PRN Reason: fever Last Admin: 06/30/18 17:12 Dose: 650 mg Bisacodyl (Dulcolax) 10 mg RECTAL DAILY [facility] Last Admin: 07/03/18 08:36 Dose: 10 mg Enoxaparin Sodium (Lovenox) 40 mg SUBCUT Q24H [facility] Last Admin: 07/02/18 21:11 Dose: 40 mg Hydralazine HCl (Apresoline) 20 mg IVPUSH Q6H PRN PRN Reason: Hypertension Potassium Chloride/Dextrose/Sod Cl (D5 1/2 Ns W/ 20 Meq/L Kcl) 1,000 mls @ 125 mls/hr IV ASDIRECTED [facility] Last Admin: 07/03/18 07:38 Dose: 125 mls/hr Levofloxacin/Dextrose 750 mg/ (Premix) 150 mls @ 100 mls/hr IV DAILY@1700 [facility] Last Admin: 07/02/18 16:52 Dose: 100 mls/hr Metronidazole 500 mg/ Premix 100 mls @ 200 mls/hr IV Q8H [facility] Last Admin: 07/03/18 11:41 Dose: 200 mls/hr Insulin Human Lispro (Humalog) 0 unit SUBCUT Q6H [facility]; Protocol Last Admin: 07/03/18 12:03 Dose: Not Given Morphine Sulfate (Morphine) 4 mg IVPUSH Q1H PRN PRN Reason: Pain Last Admin: 07/03/18 04:04 Dose: 4 mg Ondansetron HCl (Zofran) 4 mg IVPUSH Q6H PRN PRN Reason: Nausea/Vomiting Pantoprazole Sodium (Protonix Iv) 40 mg IVPUSH DAILY [facility] Last Admin: 07/03/18 08:37 Dose: 40 mg Discontinued Medications Al Hydroxide/Mg Hydroxide (Mag-Al Plus) 30 ml PO Q4H JOSE MIGUEL Stop: 07/03/18 11:31 Last Admin: 07/03/18 11:52 Dose: 30 ml Bupivacaine HCl (Marcaine 0.5%) Confirm Administered Dose 30 ml .ROUTE .STK-MED ONE Stop: 06/29/18 15:47 Last Admin: 06/29/18 17:05 Dose: 30 ml Ertapenem (Invanz) Confirm Administered Dose 1 gm .ROUTE .STK-MED ONE Stop: 06/29/18 17:00 Fentanyl (Sublimaze) Confirm Administered Dose 250 mcg .ROUTE .STK-MED ONE Stop: 06/29/18 15:44 Fentanyl (Sublimaze) Confirm Administered Dose 250 mcg .ROUTE .STK-MED ONE Stop: 06/29/18 18:08 Fentanyl (Sublimaze) 50 mcg IVPUSH Q5M PRN PRN Reason: Pain Hydromorphone HCl (Dilaudid) 0.5 mg IVPUSH ONETIME ONE Stop: 06/29/18 13:53 Last Admin: 06/29/18 14:18 Dose: 0.5 mg Hydromorphone HCl (Dilaudid) 0.5 mg IVPUSH ONETIME ONE Stop: 06/29/18 15:03 Last Admin: 06/29/18 15:52 Dose: 0.5 mg Hydromorphone HCl (Dilaudid) Confirm Administered Dose 0.5 mg .ROUTE .STK-MED ONE Stop: 06/29/18 17:39 Hydromorphone HCl (Dilaudid) Confirm Administered Dose 0.5 mg .ROUTE .STK-MED ONE Stop: 06/29/18 17:39 Hydromorphone HCl (Dilaudid) 0.5 mg IVPUSH ONETIME PRN PRN Reason: For pain Sodium Chloride (Normal Saline) 1,000 mls @ 250 mls/hr IV ONETIME ONE Stop: 06/29/18 17:51 Last Admin: 06/29/18 14:17 Dose: 250 mls/hr Lidocaine HCl (Xylocaine-Mpf 1%) Confirm Administered Dose 4 mls @ as directed .ROUTE .STK-MED ONE Stop: 06/29/18 15:44 Lactated Ringer's (Ringers, Lactated) Confirm Administered Dose 1,000 mls @ as directed .ROUTE .STK-MED ONE Stop: 06/29/18 17:11 Lactated Ringer's (Ringers, Lactated) Confirm Administered Dose 1,000 mls @ as directed .ROUTE .STK-MED ONE Stop: 06/29/18 17:32 Ertapenem 1 gm/ Sodium (Chloride) 100 mls @ 200 mls/hr IV Q24H JOSE MIGUEL Last Admin: 06/30/18 17:10 Dose: 200 mls/hr Sodium Chloride (Normal Saline) 1,000 mls @ 150 mls/hr IV ONETIME ONE Stop: 07/01/18 00:17 Last Admin: 06/30/18 19:45 Dose: Not Given Sodium Chloride (Normal Saline) 1,000 mls @ 999 mls/hr IV ONETIME ONE Stop: 06/30/18 19:23 Last Admin: 06/30/18 18:45 Dose: 999 mls/hr Insulin Human Lispro (Humalog) 0 unit SUBCUT Q6H [facility]; Protocol Last Admin: 06/30/18 07:50 Dose: Not Given Midazolam HCl (Versed 1 Mg/Ml) Confirm Administered Dose 2 mg .ROUTE .STK-MED ONE Stop: 06/29/18 15:44 Morphine Sulfate (Morphine) 4 mg IVPUSH Q1H PRN PRN Reason: Pain (severe 7-10) Stop: 06/30/18 21:01 Last Admin: 06/30/18 19:37 Dose: 4 mg Ondansetron HCl (Zofran) 4 mg IVPUSH ONETIME ONE Stop: 06/29/18 13:53 Last Admin: 06/29/18 14:22 Dose: 4 mg Ondansetron HCl (Zofran) Confirm Administered Dose 4 mg .ROUTE .STK-MED ONE Stop: 06/29/18 15:43 Phenylephrine HCl (Phenylephrine In Ns 100 Mcg/Ml) Confirm Administered Dose 1 mg .ROUTE .STK-MED ONE Stop: 06/29/18 17:12 Propofol (Diprivan 20 Ml) Confirm Administered Dose 200 mg .ROUTE .STK-MED ONE Stop: 06/29/18 15:44 Rocuronium [place] (Zemuron) Confirm Administered Dose 50 mg .ROUTE .STK-MED ONE Stop: 06/29/18 15:43 Rocuronium [place] (Zemuron) Confirm Administered Dose 50 mg .ROUTE .STK-MED ONE Stop: 06/29/18 17:38 - Exam Quality Assessment: DVT Prophylaxis General: Alert, Oriented, Cooperative, No Acute Distress HEENT: Pupils Equal, Pupils Reactive, EOMI, Mucous Membr. Moist/[place] Neck: Supple, Trachea Midline, No JVD Lungs: Clear to Auscultation, Normal Respiratory Effort Cardiovascular: Regular Rate, Regular Rhythm GI/Abdominal Exam: Normal Bowel Sounds, Soft, No Distention, No Abnormal Bruit, Tender (Male) Exam: Deferred Back Exam: Normal Inspection, Full Range of Motion Extremities: Normal Inspection, Normal Range of Motion, Non-Tender, No Pedal Edema, Normal Capillary Refill Peripheral Pulses: 2+: Radial (L), Radial (R), Dorsalis Pedis (L), Dorsalis Pedis (R) Skin: Warm, Dry, Intact, Other (Resolving irritation from tape near wounds ) Wound/Incisions: Dressing Dry and Intact Neurological: No New Focal Deficit Psy/Mental Status: Alert, Normal Affect, Normal Mood Consult PN Assessment/Plan POD#: 4 (1) Rupture of appendix SNOMED Code(s): 50553942 Code(s): K35.2 - ACUTE APPENDICITIS WITH GENERALIZED PERITONIT * DO NOT USE * Priority: High Current Visit: Yes (2) Diabetes mellitus, new onset SNOMED Code(s): 286343449, 125235243 Code(s): E11.9 - TYPE 2 DIABETES MELLITUS WITHOUT COMPLICATIONS Priority: High Current Visit: Yes (3) Appendicitis SNOMED Code(s): 57152416 Code(s): K37 - UNSPECIFIED APPENDICITIS Priority: High Current Visit: Yes Qualifiers: Appendicitis type: acute appendicitis (4) Hyperlipidemia associated with type 2 diabetes mellitus SNOMED Code(s): 005812963999, 312012284855 Code(s): E11.69 - TYPE 2 DIABETES MELLITUS WITH OTHER SPECIFIED COMPLICATION ; E78.5 - HYPERLIPIDEMIA, UNSPECIFIED Priority: Medium Current Visit: Yes Problem List Initiated/Reviewed/Updated: Yes My Orders Last 24 Hours: My Active Orders 07/02/18 15:49 Consult to Freelance Designer [CONS] Routine Plan: Impression: S/P laparoscopic appendectomy converted to open appendectomy -Post-Op day 4 -Prolonged appendiceal perforation with abscess -NPO per general surgery; NG tube in place -> removed and diet advanced -Pain management per primary service -BP/HR management per primary service -NATALYA drain in place -IV fluids per primary service -> switched to NS plus KCl today -Awaiting return or bowel function - expect prolonged ileus -> BM today -IV antibiotics per primary service -Dulcolax suppositories and maalox to assist bowel function per primary team Newly diagnosed diabetes mellitus type 2 -A1C 7.3 -Sliding scale insulin -Diabetic nurse educator consult -Freelance Designer consult -Q6HR blood glucose checks -> Change to QIDAC and Bedtime -Urine microalbumin 6.8 (WNL) -Start metformin once diet is restarted -Will need primary care follow-up on discharge -Lipid panel: Triglycerides 103, Total Cholesterol 163, LDL 122, HDL 32 -Will start statin once diet consists of more solid food Plan: Consult ordered per Dr. Sarmiento, general surgery No home medications Other orders as indicated above Other labs per primary team DVT prophylaxis per primary team: Lovenox Code status: Full code; PCP: Dr. Al
[2018-07-03] MEDS: NS + KCl 20mEq/L 1,000 ML IV SCH (15:53)
[2018-07-03] MEDS: Levofloxacin/Dextrose 5%-Water 750 MG in Premix Bag 1 BAG IV SCH (16:00)
[2018-07-03] MEDS: Acetaminophen/oxyCODONE 325-5 MG Tab PO PRN ×2 (17:50→21:45)
[2018-07-03] MEDS: Enoxaparin 40 MG/0.4 ML Syringe SUBCUT SCH (21:44)
[2018-07-04] MEDS: metroNIDAZOLE/Normal Saline 500 MG in Premix Bag 1 BAG IV SCH ×3 (02:33→18:40)
[2018-07-04] MEDS: Acetaminophen/oxyCODONE 325-5 MG Tab PO PRN ×4 (02:33→21:18)
[2018-07-04] MEDS: NS + KCl 20mEq/L 1,000 ML IV SCH ×2 (03:10→16:37)
--- NOTE | 2018-07-04 06:41 | PCM.CONSN ---
- General Info Date of Service: 07/04/18 Admission Dx/Problem (Free Text): Appendicitis Subjective Update: In to see Iraj. He is lying in bed eating. Family is at bedside. He has a new glucometer on his bedside table. He has no concerns. Discussed how we will be starting an aspirin, metformin BID, and statin tomorrow now that he is eating. Will check AM labs prior to starting meds. No patient or family concerns. No nursing concerns. Dr. Sarmiento has no concerns and we met to discuss care briefly this AM. Diet was advanced to ADA without problem. He continues to improve. Functional Status: Reports: Pain Controlled, Tolerating Diet, Ambulating, Urinating, Incentive Spirometry. Denies: New Symptoms - Review of Systems General: Reports: No Symptoms. Denies: Fever, Weakness, Fatigue, Malaise, Chills HEENT: Reports: No Symptoms. Denies: Headaches, Sinus Congestion, Sore Throat, Visual Changes Pulmonary: Reports: No Symptoms. Denies: Shortness of Breath, Cough, Sputum, Wheezing Cardiovascular: Reports: No Symptoms. Denies: Chest Pain, Palpitations, Dyspnea on Exertion, Edema, Lightheadedness Gastrointestinal: Reports: Abdominal Pain (improved ). Denies: Constipation, Diarrhea, Difficulty Swallowing, Nausea, Vomiting Genitourinary: Reports: No Symptoms. Denies: Dysuria, Frequency, Burning, Pain Musculoskeletal: Reports: No Symptoms Skin: Reports: No Symptoms Neurological: Reports: No Symptoms. Denies: Confusion Psychiatric: Reports: No Symptoms - Patient Data Vitals - Most Recent: Last Vital Signs Temp 98.1 F 07/03/18 19:24 Pulse 71 07/03/18 19:24 Resp 16 07/03/18 19:24 BP 127/87 07/03/18 19:24 Pulse Ox 97 07/03/18 19:24 Weight - Most Recent: 182 lb 5 oz I&O - Last 24 Hours: Intake & Output 07/03/18 07/03/18 07/04/18 14:59 22:59 06:59 Intake Total 1988 1706 Output Total 550 50 Balance 1439 1656 Lab Results Last 24 Hours: Laboratory Results - last 24 hr 07/03/18 07/03/18 07/03/18 Range/Units 06:15 06:15 06:15 WBC 5.15 (4.23-9.07) K/mm3 RBC 4.49 L (4.63-6.08) M/mm3 Hgb 13.0 L (13.7-17.5) gm/L Hct 39.6 L (40.1-51.0) % MCV 88.2 (79.0-92.2) fl MCH 29.0 (25.7-32.2) pg MCHC 32.8 (32.2-35.5) g/dl RDW Std Deviation 39.8 (35.1-43.9) fL Plt Count 242 (163-337) K/mm3 MPV 8.7 L (9.4-12.3) fl Neut % (Auto) 68.8 H (34.0-67.9) % Lymph % (Auto) 16.3 L (21.8-53.1) % [place] % (Auto) 12.0 (5.3-12.2) % Eos % (Auto) 2.3 (0.8-7.0) Baso % (Auto) 0.2 (0.1-1.2) % Neut # (Auto) 3.54 (1.78-5.38) K/mm3 Lymph # (Auto) 0.84 L (1.32-3.57) K/mm3 [place] # (Auto) 0.62 (0.30-0.82) K/mm3 Eos # (Auto) 0.12 (0.04-0.54) K/mm3 Baso # (Auto) 0.01 (0.01-0.08) K/mm3 Sodium 138 (136-145) mEq/L Potassium 4.1 (3.5-5.1) mEq/L Chloride 106 (98-107) mEq/L Carbon Dioxide 25 (21-32) mEq/L Anion Gap 11.1 (5-15) BUN 7 (7-18) mg/dL Creatinine 1.0 (0.7-1.3) mg/dL Est Cr Clr Drug Dosing 69.12 mL/min Estimated GFR (MDRD) > 60 (>60) mL/min BUN/Creatinine Ratio 7.0 L (14-18) Glucose 155 H (80-115) mg/dL POC Glucose (80-115) mg/dL Calcium 8.4 L (8.5-10.1) mg/dL Magnesium 2.3 (1.8-2.4) mg/dl Triglycerides 103 (<150) mg/dL Cholesterol 163 (<200) mg/dL LDL Cholesterol Direct 122 H* (<100) mg/dL HDL Cholesterol 32.0 L (40-59) mg/dL 07/03/18 07/03/18 07/03/18 Range/Units 11:50 17:10 21:49 WBC (4.23-9.07) K/mm3 RBC (4.63-6.08) M/mm3 Hgb (13.7-17.5) gm/L Hct (40.1-51.0) % MCV (79.0-92.2) fl MCH (25.7-32.2) pg MCHC (32.2-35.5) g/dl RDW Std Deviation (35.1-43.9) fL Plt Count (163-337) K/mm3 MPV (9.4-12.3) fl Neut % (Auto) (34.0-67.9) % Lymph % (Auto) (21.8-53.1) % [place] % (Auto) (5.3-12.2) % Eos % (Auto) (0.8-7.0) Baso % (Auto) (0.1-1.2) % Neut # (Auto) (1.78-5.38) K/mm3 Lymph # (Auto) (1.32-3.57) K/mm3 [place] # (Auto) (0.30-0.82) K/mm3 Eos # (Auto) (0.04-0.54) K/mm3 Baso # (Auto) (0.01-0.08) K/mm3 Sodium (136-145) mEq/L Potassium (3.5-5.1) mEq/L Chloride (98-107) mEq/L Carbon Dioxide (21-32) mEq/L Anion Gap (5-15) BUN (7-18) mg/dL Creatinine (0.7-1.3) mg/dL Est Cr Clr Drug Dosing mL/min Estimated GFR (MDRD) (>60) mL/min BUN/Creatinine Ratio (14-18) Glucose (80-115) mg/dL POC Glucose 135 H 165 H 119 H (80-115) mg/dL Calcium (8.5-10.1) mg/dL Magnesium (1.8-2.4) mg/dl Triglycerides (<150) mg/dL Cholesterol (<200) mg/dL LDL Cholesterol Direct (<100) mg/dL HDL Cholesterol (40-59) mg/dL Chris Results Last 24 Hours: Microbiology 06/29/18 17:35 Gram Stain - Final Appendix Anaerobic Culture - Preliminary Escherichia Coli Stenotrophomonas Maltophilia Streptococcus Salivarius Bacteroides Fragilis Group Med Orders - Current: Current Medications Acetaminophen (Tylenol) 600 mg RECTAL Q4H PRN PRN Reason: fever Last Admin: 06/30/18 17:12 Dose: 650 mg Bisacodyl (Dulcolax) 10 mg RECTAL DAILY [facility] Last Admin: 07/03/18 08:36 Dose: 10 mg Enoxaparin Sodium (Lovenox) 40 mg SUBCUT Q24H [facility] Last Admin: 07/03/18 21:44 Dose: 40 mg Hydralazine HCl (Apresoline) 20 mg IVPUSH Q6H PRN PRN Reason: Hypertension Levofloxacin/Dextrose 750 mg/ (Premix) 150 mls @ 100 mls/hr IV DAILY@1700 [facility] Last Admin: 07/03/18 16:00 Dose: 100 mls/hr Metronidazole 500 mg/ Premix 100 mls @ 200 mls/hr IV Q8H [facility] Last Admin: 07/04/18 02:33 Dose: 200 mls/hr Potassium Chloride/Sodium Chloride (Normal Saline With 20 Meq Kcl) 1,000 mls @ 75 mls/hr IV ASDIRECTED [facility] Last Admin: 07/04/18 03:10 Dose: 75 mls/hr Insulin Human Lispro (Humalog) 0 unit SUBCUT QIDACANDBED [facility]; Protocol Last Admin: 07/03/18 22:08 Dose: Not Given Morphine Sulfate (Morphine) 4 mg IVPUSH Q1H PRN PRN Reason: Pain Last Admin: 07/03/18 14:33 Dose: 4 mg Ondansetron HCl (Zofran) 4 mg IVPUSH Q6H PRN PRN Reason: Nausea/Vomiting Oxycodone/Acetaminophen (Percocet 325-5 Mg) 0 tab PO Q4H PRN PRN Reason: Pain Last Admin: 07/04/18 02:33 Dose: 2 tab Pantoprazole Sodium (Protonix Iv) 40 mg IVPUSH DAILY [facility] Last Admin: 07/03/18 08:37 Dose: 40 mg Discontinued Medications Al Hydroxide/Mg Hydroxide (Mag-Al Plus) 30 ml PO Q4H [facility] Stop: 07/03/18 11:31 Last Admin: 07/03/18 11:52 Dose: 30 ml Bupivacaine HCl (Marcaine 0.5%) Confirm Administered Dose 30 ml .ROUTE .STK-MED ONE Stop: 06/29/18 15:47 Last Admin: 06/29/18 17:05 Dose: 30 ml Ertapenem (Invanz) Confirm Administered Dose 1 gm .ROUTE .STK-MED ONE Stop: 06/29/18 17:00 Fentanyl (Sublimaze) Confirm Administered Dose 250 mcg .ROUTE .STK-MED ONE Stop: 06/29/18 15:44 Fentanyl (Sublimaze) Confirm Administered Dose 250 mcg .ROUTE .STK-MED ONE Stop: 06/29/18 18:08 Fentanyl (Sublimaze) 50 mcg IVPUSH Q5M PRN PRN Reason: Pain Hydromorphone HCl (Dilaudid) 0.5 mg IVPUSH ONETIME ONE Stop: 06/29/18 13:53 Last Admin: 06/29/18 14:18 Dose: 0.5 mg Hydromorphone HCl (Dilaudid) 0.5 mg IVPUSH ONETIME ONE Stop: 06/29/18 15:03 Last Admin: 06/29/18 15:52 Dose: 0.5 mg Hydromorphone HCl (Dilaudid) Confirm Administered Dose 0.5 mg .ROUTE .STK-MED ONE Stop: 06/29/18 17:39 Hydromorphone HCl (Dilaudid) Confirm Administered Dose 0.5 mg .ROUTE .STK-MED ONE Stop: 06/29/18 17:39 Hydromorphone HCl (Dilaudid) 0.5 mg IVPUSH ONETIME PRN PRN Reason: For pain Sodium Chloride (Normal Saline) 1,000 mls @ 250 mls/hr IV ONETIME ONE Stop: 06/29/18 17:51 Last Admin: 06/29/18 14:17 Dose: 250 mls/hr Lidocaine HCl (Xylocaine-Mpf 1%) Confirm Administered Dose 4 mls @ as directed .ROUTE .STK-MED ONE Stop: 06/29/18 15:44 Lactated Ringer's (Ringers, Lactated) Confirm Administered Dose 1,000 mls @ as directed .ROUTE .ST-MED ONE Stop: 06/29/18 17:11 Lactated Ringer's (Ringers, Lactated) Confirm Administered Dose 1,000 mls @ as directed .ROUTE .STK-MED ONE Stop: 06/29/18 17:32 Potassium Chloride/Dextrose/Sod Cl (D5 1/2 Ns W/ 20 Meq/L Kcl) 1,000 mls @ 125 mls/hr IV ASDIRECTED JOSE MIGUEL Last Admin: 07/03/18 07:38 Dose: 125 mls/hr Ertapenem 1 gm/ Sodium (Chloride) 100 mls @ 200 mls/hr IV Q24H [facility]IGU[facility] Last Admin: 06/30/18 17:10 Dose: 200 mls/hr Sodium Chloride (Normal Saline) 1,000 mls @ 150 mls/hr IV ONETIME ONE Stop: 07/01/18 00:17 Last Admin: 06/30/18 19:45 Dose: Not Given Sodium Chloride (Normal Saline) 1,000 mls @ 999 mls/hr IV ONETIME ONE Stop: 06/30/18 19:23 Last Admin: 06/30/18 18:45 Dose: 999 mls/hr Insulin Human Lispro (Humalog) 0 unit SUBCUT Q6H [facility]; Protocol Last Admin: 06/30/18 07:50 Dose: Not Given Insulin Human Lispro (Humalog) 0 unit SUBCUT Q6H [facility]; Protocol Last Admin: 07/03/18 12:03 Dose: Not Given Midazolam HCl (Versed 1 Mg/Ml) Confirm Administered Dose 2 mg .ROUTE .ST-MED ONE Stop: 06/29/18 15:44 Morphine Sulfate (Morphine) 4 mg IVPUSH Q1H PRN PRN Reason: Pain (severe 7-10) Stop: 06/30/18 21:01 Last Admin: 06/30/18 19:37 Dose: 4 mg Ondansetron HCl (Zofran) 4 mg IVPUSH ONETIME ONE Stop: 06/29/18 13:53 Last Admin: 06/29/18 14:22 Dose: 4 mg Ondansetron HCl (Zofran) Confirm Administered Dose 4 mg .ROUTE .STK-MED ONE Stop: 06/29/18 15:43 Phenylephrine HCl (Phenylephrine In Ns 100 Mcg/Ml) Confirm Administered Dose 1 mg .ROUTE .STK-MED ONE Stop: 06/29/18 17:12 Propofol (Diprivan 20 Ml) Confirm Administered Dose 200 mg .ROUTE .STK-MED ONE Stop: 06/29/18 15:44 Rocuronium [place] (Zemuron) Confirm Administered Dose 50 mg .ROUTE .STK-MED ONE Stop: 06/29/18 15:43 Rocuronium [place] (Zemuron) Confirm Administered Dose 50 mg .ROUTE .STK-MED ONE Stop: 06/29/18 17:38 - Exam Quality Assessment: DVT Prophylaxis General: Alert, Oriented, Cooperative, No Acute Distress HEENT: Pupils Equal, Pupils Reactive, EOMI, Mucous Membr. Moist/[place] Neck: Supple, Trachea Midline, No JVD Lungs: Clear to Auscultation, Normal Respiratory Effort Cardiovascular: Regular Rate, Regular Rhythm GI/Abdominal Exam: Normal Bowel Sounds, Soft, No Distention, Tender (Male) Exam: Deferred Back Exam: Normal Inspection, Full Range of Motion Extremities: Normal Inspection, Normal Range of Motion, Non-Tender, No Pedal Edema, Normal Capillary Refill Peripheral Pulses: 2+: Radial (L), Radial (R), Dorsalis Pedis (L), Dorsalis Pedis (R) Skin: Warm, Dry, Intact Wound/Incisions: Dressing Dry and Intact Neurological: No New Focal Deficit Psy/Mental Status: Alert, Normal Affect, Normal Mood Consult PN Assessment/Plan POD#: 5 (1) Rupture of appendix SNOMED Code(s): 25346425 Code(s): K35.2 - ACUTE APPENDICITIS WITH GENERALIZED PERITONIT * DO NOT USE * Priority: High Current Visit: Yes (2) Diabetes mellitus, new onset SNOMED Code(s): 013793064, 163543054 Code(s): E11.9 - TYPE 2 DIABETES MELLITUS WITHOUT COMPLICATIONS Priority: High Current Visit: Yes (3) Appendicitis SNOMED Code(s): 98556025 Code(s): K37 - UNSPECIFIED APPENDICITIS Priority: High Current Visit: Yes Qualifiers: Appendicitis type: acute appendicitis (4) Hyperlipidemia associated with type 2 diabetes mellitus SNOMED Code(s): 338659580523, 935432579683 Code(s): E11.69 - TYPE 2 DIABETES MELLITUS WITH OTHER SPECIFIED COMPLICATION ; E78.5 - HYPERLIPIDEMIA, UNSPECIFIED Priority: Medium Current Visit: Yes Problem List Initiated/Reviewed/Updated: Yes My Orders Last 24 Hours: My Active Orders 07/03/18 15:10 Accu Check [Blood Glucose Check, Bedside] [RC] QIDACANDBED 07/03/18 15:15 NS + KCl 20mEq/L [Normal Saline with 20 mEq KCl] 1,000 ml IV ASDIRECTED 07/03/18 17:00 Insulin Lispro [HumaLOG] See Protocol SUBCUT QIDACANDBED Plan: Impression: S/P laparoscopic appendectomy converted to open appendectomy -Post-Op day 5 -Prolonged appendiceal perforation with abscess -NPO per general surgery; NG tube in place -> removed and diet advanced per primary service -Pain management per primary service -BP/HR management per primary service -NATALYA drain in place -IV fluids per primary service -> switched to NS plus KCl -Awaiting return or bowel function - expect prolonged ileus -> BMs continue -IV antibiotics per primary service -Dulcolax suppositories and maalox to assist bowel function per primary team Newly diagnosed diabetes mellitus type 2 -A1C 7.3 -Sliding scale insulin -Diabetic nurse educator consult -Tooling Manager consult -Q6HR blood glucose checks -> Change to QIDAC and Bedtime -Urine microalbumin 6.8 (WNL) -Start metformin BID with meals tomorrow -Will need primary care follow-up on discharge -Lipid panel: Triglycerides 103, Total Cholesterol 163, LDL 122, HDL 32 -Will start statin tomorrow -CMP/Magnesium AM starting tomorrow -ASA 81mg daily starting tomorrow Plan: Consult ordered per Dr. Sarmiento, general surgery No home medications Other orders as indicated above Other labs per primary team DVT prophylaxis per primary team: Lovenox Code status: Full code; PCP: Dr. Al
[2018-07-04] MEDS: Insulin Lispro 100 Unit/ML 3 ML KwikPen SUBCUT SCH ×4 (07:01→21:46)
[2018-07-04] MEDS: Pantoprazole 40 MG Vial IVPUSH SCH (08:09)
[2018-07-04] MEDS: Bisacodyl 10 MG Supp RECTAL SCH (08:15)
--- NOTE | 2018-07-04 09:39 | PCM.PN ---
- General Info Date of Service: 07/04/18 Functional Status: Reports: Pain Controlled, Tolerating Diet, Ambulating, Urinating, Incentive Spirometry. Denies: New Symptoms - Review of Systems General: Reports: No Symptoms Gastrointestinal: Reports: Fl[place]. Denies: Constipation, Diarrhea, Nausea, Vomiting Genitourinary: Reports: No Symptoms Musculoskeletal: Reports: No Symptoms Skin: Reports: No Symptoms Neurological: Reports: No Symptoms Psychiatric: Reports: No Symptoms - Patient Data Vitals - Most Recent: Last Vital Signs Temp 98.1 F 07/04/18 07:47 Pulse 66 07/04/18 07:50 Resp 16 07/04/18 07:47 BP 148/77 H 07/04/18 07:50 Pulse Ox 97 07/04/18 07:50 Weight - Most Recent: 182 lb 5 oz I&O - Last 24 Hours: Intake & Output 07/03/18 07/04/18 07/04/18 22:59 06:59 14:59 Intake Total 1989 1706 Output Total 550 50 Balance 1439 1656 Lab Results Last 24 Hours: Laboratory Results - last 24 hr 07/03/18 07/03/18 07/03/18 Range/Units 11:50 17:10 21:49 POC Glucose 135 H 165 H 119 H (80-115) mg/dL 07/04/18 Range/Units 06:51 POC Glucose 106 (80-115) mg/dL Chris Results Last 24 Hours: Microbiology 06/29/18 17:35 Gram Stain - Final Appendix Anaerobic Culture - Preliminary Escherichia Coli Stenotrophomonas Maltophilia Streptococcus Salivarius Bacteroides Fragilis Group Med Orders - Current: Current Medications Acetaminophen (Tylenol) 600 mg RECTAL Q4H PRN PRN Reason: fever Last Admin: 06/30/18 17:12 Dose: 650 mg Bisacodyl (Dulcolax) 10 mg RECTAL DAILY [facility] Last Admin: 07/04/18 08:15 Dose: 10 mg Enoxaparin Sodium (Lovenox) 40 mg SUBCUT Q24H [facility] Last Admin: 07/03/18 21:44 Dose: 40 mg Hydralazine HCl (Apresoline) 20 mg IVPUSH Q6H PRN PRN Reason: Hypertension Levofloxacin/Dextrose 750 mg/ (Premix) 150 mls @ 100 mls/hr IV DAILY@1700 [facility] Last Admin: 07/03/18 16:00 Dose: 100 mls/hr Metronidazole 500 mg/ Premix 100 mls @ 200 mls/hr IV Q8H [facility] Last Admin: 07/04/18 02:33 Dose: 200 mls/hr Potassium Chloride/Sodium Chloride (Normal Saline With 20 Meq Kcl) 1,000 mls @ 75 mls/hr IV ASDIRECTED [facility] Last Admin: 07/04/18 03:10 Dose: 75 mls/hr Insulin Human Lispro (Humalog) 0 unit SUBCUT QIDACANDBED [facility]; Protocol Last Admin: 07/04/18 07:01 Dose: Not Given Morphine Sulfate (Morphine) 4 mg IVPUSH Q1H PRN PRN Reason: Pain Last Admin: 07/03/18 14:33 Dose: 4 mg Ondansetron HCl (Zofran) 4 mg IVPUSH Q6H PRN PRN Reason: Nausea/Vomiting Oxycodone/Acetaminophen (Percocet 325-5 Mg) 0 tab PO Q4H PRN PRN Reason: Pain Last Admin: 07/04/18 06:44 Dose: 2 tab Pantoprazole Sodium (Protonix Iv) 40 mg IVPUSH DAILY [facility] Last Admin: 07/04/18 08:09 Dose: 40 mg Discontinued Medications Al Hydroxide/Mg Hydroxide (Mag-Al Plus) 30 ml PO Q4H [facility] Stop: 07/03/18 11:31 Last Admin: 07/03/18 11:52 Dose: 30 ml Bupivacaine HCl (Marcaine 0.5%) Confirm Administered Dose 30 ml .ROUTE .STK-MED ONE Stop: 06/29/18 15:47 Last Admin: 06/29/18 17:05 Dose: 30 ml Ertapenem (Invanz) Confirm Administered Dose 1 gm .ROUTE .STK-MED ONE Stop: 06/29/18 17:00 Fentanyl (Sublimaze) Confirm Administered Dose 250 mcg .ROUTE .STK-MED ONE Stop: 06/29/18 15:44 Fentanyl (Sublimaze) Confirm Administered Dose 250 mcg .ROUTE .STK-MED ONE Stop: 06/29/18 18:08 Fentanyl (Sublimaze) 50 mcg IVPUSH Q5M PRN PRN Reason: Pain Hydromorphone HCl (Dilaudid) 0.5 mg IVPUSH ONETIME ONE Stop: 06/29/18 13:53 Last Admin: 06/29/18 14:18 Dose: 0.5 mg Hydromorphone HCl (Dilaudid) 0.5 mg IVPUSH ONETIME ONE Stop: 06/29/18 15:03 Last Admin: 06/29/18 15:52 Dose: 0.5 mg Hydromorphone HCl (Dilaudid) Confirm Administered Dose 0.5 mg .ROUTE .STK-MED ONE Stop: 06/29/18 17:39 Hydromorphone HCl (Dilaudid) Confirm Administered Dose 0.5 mg .ROUTE .STK-MED ONE Stop: 06/29/18 17:39 Hydromorphone HCl (Dilaudid) 0.5 mg IVPUSH ONETIME PRN PRN Reason: For pain Sodium Chloride (Normal Saline) 1,000 mls @ 250 mls/hr IV ONETIME ONE Stop: 06/29/18 17:51 Last Admin: 06/29/18 14:17 Dose: 250 mls/hr Lidocaine HCl (Xylocaine-Mpf 1%) Confirm Administered Dose 4 mls @ as directed .ROUTE .STK-MED ONE Stop: 06/29/18 15:44 Lactated Ringer's (Ringers, Lactated) Confirm Administered Dose 1,000 mls @ as directed .ROUTE .STK-MED ONE Stop: 06/29/18 17:11 Lactated Ringer's (Ringers, Lactated) Confirm Administered Dose 1,000 mls @ as directed .ROUTE .STK-MED ONE Stop: 06/29/18 17:32 Potassium Chloride/Dextrose/Sod Cl (D5 1/2 Ns W/ 20 Meq/L Kcl) 1,000 mls @ 125 mls/hr IV ASDIRECTED [facility] Last Admin: 07/03/18 07:38 Dose: 125 mls/hr Ertapenem 1 gm/ Sodium (Chloride) 100 mls @ 200 mls/hr IV Q24H [facility] Last Admin: 06/30/18 17:10 Dose: 200 mls/hr Sodium Chloride (Normal Saline) 1,000 mls @ 150 mls/hr IV ONETIME ONE Stop: 07/01/18 00:17 Last Admin: 06/30/18 19:45 Dose: Not Given Sodium Chloride (Normal Saline) 1,000 mls @ 999 mls/hr IV ONETIME ONE Stop: 06/30/18 19:23 Last Admin: 06/30/18 18:45 Dose: 999 mls/hr Insulin Human Lispro (Humalog) 0 unit SUBCUT Q6H [facility]; Protocol Last Admin: 06/30/18 07:50 Dose: Not Given Insulin Human Lispro (Humalog) 0 unit SUBCUT Q6H [facility]; Protocol Last Admin: 07/03/18 12:03 Dose: Not Given Midazolam HCl (Versed 1 Mg/Ml) Confirm Administered Dose 2 mg .ROUTE .STK-MED ONE Stop: 06/29/18 15:44 Morphine Sulfate (Morphine) 4 mg IVPUSH Q1H PRN PRN Reason: Pain (severe 7-10) Stop: 06/30/18 21:01 Last Admin: 06/30/18 19:37 Dose: 4 mg Ondansetron HCl (Zofran) 4 mg IVPUSH ONETIME ONE Stop: 06/29/18 13:53 Last Admin: 06/29/18 14:22 Dose: 4 mg Ondansetron HCl (Zofran) Confirm Administered Dose 4 mg .ROUTE .STK-MED ONE Stop: 06/29/18 15:43 Phenylephrine HCl (Phenylephrine In Ns 100 Mcg/Ml) Confirm Administered Dose 1 mg .ROUTE .STK-MED ONE Stop: 06/29/18 17:12 Propofol (Diprivan 20 Ml) Confirm Administered Dose 200 mg .ROUTE .STK-MED ONE Stop: 06/29/18 15:44 Rocuronium [place] (Zemuron) Confirm Administered Dose 50 mg .ROUTE .STK-MED ONE Stop: 06/29/18 15:43 Rocuronium [place] (Zemuron) Confirm Administered Dose 50 mg .ROUTE .STK-MED ONE Stop: 06/29/18 17:38 - Exam General: Alert, Oriented, Cooperative, No Acute Distress HEENT: Pupils Equal Neck: Supple Lungs: Clear to Auscultation Cardiovascular: Regular Rate GI/Abdominal Exam: Normal Bowel Sounds, Other (Wound being treated with soap and water/shower and covered wih gauze post shower) - Problem List Review Problem List Initiated/Reviewed/Updated: Yes - My Orders Last 24 Hours: My Active Orders 07/03/18 12:48 Shower [May Shower] [RC] DAILY 07/03/18 17:41 Acetaminophen/oxyCODONE [Percocet 325-5 MG] 0 tab PO Q4H PRN - Assessment Assessment:: Stable, continue Abx, bowel movements positive Continued improvement - Plan Plan:: Impression: POD 1, S/P appendectomy Newly diagnosed diabetes mellitus type 2 Plan: Begin Humalog sliding scale BP mgt per Primary service Pain mgt per Primary service Diabetic teaching Dietary consult DVT/GI prophylaxis NG removed, start clear liquid diet, shower,DC morphine, percocet ordered Advance diet
[2018-07-04] MEDS: Levofloxacin/Dextrose 5%-Water 750 MG in Premix Bag 1 BAG IV SCH (16:38)
[2018-07-04] MEDS: Enoxaparin 40 MG/0.4 ML Syringe SUBCUT SCH (21:21)
[2018-07-05] MEDS: Acetaminophen/oxyCODONE 325-5 MG Tab PO PRN ×5 (02:09→21:54)
[2018-07-05] MEDS: metroNIDAZOLE/Normal Saline 500 MG in Premix Bag 1 BAG IV SCH ×3 (02:10→18:02)
[2018-07-05] MEDS: Insulin Lispro 100 Unit/ML 3 ML KwikPen SUBCUT SCH ×4 (06:25→21:48)
--- NOTE | 2018-07-05 07:12 | PCM.CONSN ---
- General Info Date of Service: 07/05/18 Admission Dx/Problem (Free Text): Appendicitis Subjective Update: In to see Iraj. Discussed medications he has or will receive today again. He voiced understanding. Discussed plan of care. He has no concerns. tobacco educator has seen him and will have him schedule outpatient follow-up with her upon discharge. No nursing concerns. He has been up ambulating. Still having BMs and has been urinating without difficulty. Pain is controlled. Functional Status: Reports: Pain Controlled, Tolerating Diet, Ambulating, Urinating, Incentive Spirometry. Denies: New Symptoms - Review of Systems General: Reports: No Symptoms. Denies: Fever, Weakness, Fatigue, Malaise, Chills HEENT: Reports: No Symptoms. Denies: Sore Throat, Visual Changes Pulmonary: Reports: No Symptoms. Denies: Shortness of Breath, Cough, Sputum, Wheezing Cardiovascular: Reports: No Symptoms. Denies: Chest Pain, Palpitations, Dyspnea on Exertion, Lightheadedness Gastrointestinal: Reports: Abdominal Pain (improving ). Denies: Constipation, Diarrhea, Difficulty Swallowing, Nausea, Vomiting Genitourinary: Reports: No Symptoms. Denies: Dysuria, Frequency, Burning, Pain Musculoskeletal: Reports: No Symptoms Skin: Reports: No Symptoms Neurological: Reports: No Symptoms. Denies: Confusion Psychiatric: Reports: No Symptoms - Patient Data Vitals - Most Recent: Last Vital Signs Temp 98.1 F 07/05/18 03:26 Pulse 64 07/05/18 03:26 Resp 18 07/05/18 03:26 BP 146/99 H 07/05/18 06:10 Pulse Ox 96 07/05/18 03:26 Weight - Most Recent: 179 lb I&O - Last 24 Hours: Intake & Output 07/04/18 07/05/18 07/05/18 22:59 06:59 14:59 Intake Total 1898 1198 Output Total 530 Balance 1368 1198 Lab Results Last 24 Hours: Laboratory Results - last 24 hr 07/04/18 07/04/18 07/04/18 Range/Units 11:31 16:42 21:27 POC Glucose 122 H 155 H 111 (80-115) mg/dL Chris Results Last 24 Hours: Microbiology 06/29/18 17:35 Gram Stain - Final Appendix Anaerobic Culture - Preliminary Escherichia Coli Stenotrophomonas Maltophilia Streptococcus Salivarius Bacteroides Fragilis Group Med Orders - Current: Current Medications Acetaminophen (Tylenol) 600 mg RECTAL Q4H PRN PRN Reason: fever Last Admin: 06/30/18 17:12 Dose: 650 mg Aspirin (Aspirin) 81 mg PO DAILY [facility] Bisacodyl (Dulcolax) 10 mg RECTAL DAILY [facility] Last Admin: 07/04/18 08:15 Dose: 10 mg Enoxaparin Sodium (Lovenox) 40 mg SUBCUT Q24H [facility] Last Admin: 07/04/18 21:21 Dose: 40 mg Hydralazine HCl (Apresoline) 20 mg IVPUSH Q6H PRN PRN Reason: Hypertension Levofloxacin/Dextrose 750 mg/ (Premix) 150 mls @ 100 mls/hr IV DAILY@1700 [facility] Last Admin: 07/04/18 16:38 Dose: 100 mls/hr Metronidazole 500 mg/ Premix 100 mls @ 200 mls/hr IV Q8H [facility] Last Admin: 07/05/18 02:10 Dose: 200 mls/hr Potassium Chloride/Sodium Chloride (Normal Saline With 20 Meq Kcl) 1,000 mls @ 75 mls/hr IV ASDIRECTED [facility] Last Admin: 07/04/18 16:37 Dose: 75 mls/hr Insulin Human Lispro (Humalog) 0 unit SUBCUT QIDACANDBED [facility]; Protocol Last Admin: 07/05/18 06:25 Dose: Not Given Metformin HCl (Glucophage) 500 mg PO BIDMEALS [facility] Ondansetron HCl (Zofran) 4 mg IVPUSH Q6H PRN PRN Reason: Nausea/Vomiting Oxycodone/Acetaminophen (Percocet 325-5 Mg) 0 tab PO Q4H PRN PRN Reason: Pain Last Admin: 07/05/18 02:09 Dose: 2 tab Pantoprazole Sodium (Protonix Iv) 40 mg IVPUSH DAILY [facility] Last Admin: 07/04/18 08:09 Dose: 40 mg Simvastatin (Zocor) 20 mg PO BEDTIME [facility] Discontinued Medications Al Hydroxide/Mg Hydroxide (Mag-Al Plus) 30 ml PO Q4H [facility] Stop: 07/03/18 11:31 Last Admin: 07/03/18 11:52 Dose: 30 ml Bupivacaine HCl (Marcaine 0.5%) Confirm Administered Dose 30 ml .ROUTE .STK-MED ONE Stop: 06/29/18 15:47 Last Admin: 06/29/18 17:05 Dose: 30 ml Ertapenem (Invanz) Confirm Administered Dose 1 gm .ROUTE .STK-MED ONE Stop: 06/29/18 17:00 Fentanyl (Sublimaze) Confirm Administered Dose 250 mcg .ROUTE .STK-MED ONE Stop: 06/29/18 15:44 Fentanyl (Sublimaze) Confirm Administered Dose 250 mcg .ROUTE .STK-MED ONE Stop: 06/29/18 18:08 Fentanyl (Sublimaze) 50 mcg IVPUSH Q5M PRN PRN Reason: Pain Hydromorphone HCl (Dilaudid) 0.5 mg IVPUSH ONETIME ONE Stop: 06/29/18 13:53 Last Admin: 06/29/18 14:18 Dose: 0.5 mg Hydromorphone HCl (Dilaudid) 0.5 mg IVPUSH ONETIME ONE Stop: 06/29/18 15:03 Last Admin: 06/29/18 15:52 Dose: 0.5 mg Hydromorphone HCl (Dilaudid) Confirm Administered Dose 0.5 mg .ROUTE .STK-MED ONE Stop: 06/29/18 17:39 Hydromorphone HCl (Dilaudid) Confirm Administered Dose 0.5 mg .ROUTE .STK-MED ONE Stop: 06/29/18 17:39 Hydromorphone HCl (Dilaudid) 0.5 mg IVPUSH ONETIME PRN PRN Reason: For pain Sodium Chloride (Normal Saline) 1,000 mls @ 250 mls/hr IV ONETIME ONE Stop: 06/29/18 17:51 Last Admin: 06/29/18 14:17 Dose: 250 mls/hr Lidocaine HCl (Xylocaine-Mpf 1%) Confirm Administered Dose 4 mls @ as directed .ROUTE .STK-MED ONE Stop: 06/29/18 15:44 Lactated Ringer's (Ringers, Lactated) Confirm Administered Dose 1,000 mls @ as directed .ROUTE .STK-MED ONE Stop: 06/29/18 17:11 Lactated Ringer's (Ringers, Lactated) Confirm Administered Dose 1,000 mls @ as directed .ROUTE .STK-MED ONE Stop: 06/29/18 17:32 Potassium Chloride/Dextrose/Sod Cl (D5 1/2 Ns W/ 20 Meq/L Kcl) 1,000 mls @ 125 mls/hr IV ASDIRECTED [facility] Last Admin: 07/03/18 07:38 Dose: 125 mls/hr Ertapenem 1 gm/ Sodium (Chloride) 100 mls @ 200 mls/hr IV Q24H [facility] Last Admin: 06/30/18 17:10 Dose: 200 mls/hr Sodium Chloride (Normal Saline) 1,000 mls @ 150 mls/hr IV ONETIME ONE Stop: 07/01/18 00:17 Last Admin: 06/30/18 19:45 Dose: Not Given Sodium Chloride (Normal Saline) 1,000 mls @ 999 mls/hr IV ONETIME ONE Stop: 06/30/18 19:23 Last Admin: 06/30/18 18:45 Dose: 999 mls/hr Insulin Human Lispro (Humalog) 0 unit SUBCUT Q6H [facility]; Protocol Last Admin: 06/30/18 07:50 Dose: Not Given Insulin Human Lispro (Humalog) 0 unit SUBCUT Q6H [facility]; Protocol Last Admin: 07/03/18 12:03 Dose: Not Given Midazolam HCl (Versed 1 Mg/Ml) Confirm Administered Dose 2 mg .ROUTE .STK-MED ONE Stop: 06/29/18 15:44 Morphine Sulfate (Morphine) 4 mg IVPUSH Q1H PRN PRN Reason: Pain (severe 7-10) Stop: 06/30/18 21:01 Last Admin: 06/30/18 19:37 Dose: 4 mg Morphine Sulfate (Morphine) 4 mg IVPUSH Q1H PRN PRN Reason: Pain Last Admin: 07/03/18 14:33 Dose: 4 mg Ondansetron HCl (Zofran) 4 mg IVPUSH ONETIME ONE Stop: 06/29/18 13:53 Last Admin: 06/29/18 14:22 Dose: 4 mg Ondansetron HCl (Zofran) Confirm Administered Dose 4 mg .ROUTE .STK-MED ONE Stop: 06/29/18 15:43 Phenylephrine HCl (Phenylephrine In Ns 100 Mcg/Ml) Confirm Administered Dose 1 mg .ROUTE .STK-MED ONE Stop: 06/29/18 17:12 Propofol (Diprivan 20 Ml) Confirm Administered Dose 200 mg .ROUTE .STK-MED ONE Stop: 06/29/18 15:44 Rocuronium [place] (Zemuron) Confirm Administered Dose 50 mg .ROUTE .STK-MED ONE Stop: 06/29/18 15:43 Rocuronium [place] (Zemuron) Confirm Administered Dose 50 mg .ROUTE .STK-MED ONE Stop: 06/29/18 17:38 - Exam Quality Assessment: DVT Prophylaxis General: Alert, Oriented, Cooperative, No Acute Distress HEENT: Pupils Equal, Pupils Reactive, EOMI, Mucous Membr. Moist/[place] Neck: Supple, Trachea Midline, No JVD Lungs: Clear to Auscultation, Normal Respiratory Effort Cardiovascular: Regular Rate, Regular Rhythm GI/Abdominal Exam: Normal Bowel Sounds, Soft, No Distention, No Abnormal Bruit, Tender (Male) Exam: Deferred Back Exam: Normal Inspection, Full Range of Motion Extremities: Normal Inspection, Normal Range of Motion, Non-Tender, No Pedal Edema, Normal Capillary Refill Peripheral Pulses: 2+: Dorsalis Pedis (L), Dorsalis Pedis (R), 3+: Radial (L), Radial (R) Skin: Warm, Dry, Intact Neurological: No New Focal Deficit, Cranial Nerves Intact Psy/Mental Status: Alert, Normal Affect, Normal Mood Consult PN Assessment/Plan POD#: 6 (1) Rupture of appendix SNOMED Code(s): 14518371 Code(s): K35.2 - ACUTE APPENDICITIS WITH GENERALIZED PERITONIT * DO NOT USE * Priority: High Current Visit: Yes (2) Diabetes mellitus, new onset SNOMED Code(s): 992543409, 252367034 Code(s): E11.9 - TYPE 2 DIABETES MELLITUS WITHOUT COMPLICATIONS Priority: High Current Visit: Yes (3) Appendicitis SNOMED Code(s): 43551480 Code(s): K37 - UNSPECIFIED APPENDICITIS Priority: High Current Visit: Yes Qualifiers: Appendicitis type: acute appendicitis (4) Hyperlipidemia associated with type 2 diabetes mellitus SNOMED Code(s): 265042784531, 291472785663 Code(s): E11.69 - TYPE 2 DIABETES MELLITUS WITH OTHER SPECIFIED COMPLICATION ; E78.5 - HYPERLIPIDEMIA, UNSPECIFIED Priority: Medium Current Visit: Yes Problem List Initiated/Reviewed/Updated: Yes My Orders Last 24 Hours: My Active Orders 07/05/18 06:13 CMP [COMPREHENSIVE METABOLIC PN,CMP] [CHEM] AM MAGNESIUM [CHEM] AM 07/05/18 09:00 Aspirin 81 mg PO DAILY 07/05/18 11:00 metFORMIN [Glucophage] 500 mg PO BIDMEALS 07/05/18 21:00 Simvastatin [Zocor] 20 mg PO BEDTIME 07/06/18 05:11 CMP [COMPREHENSIVE METABOLIC PN,CMP] [CHEM] AM MAGNESIUM [CHEM] AM 07/07/18 05:11 CMP [COMPREHENSIVE METABOLIC PN,CMP] [CHEM] AM MAGNESIUM [CHEM] AM 07/08/18 05:11 CMP [COMPREHENSIVE METABOLIC PN,CMP] [CHEM] AM MAGNESIUM [CHEM] AM 07/09/18 05:11 CMP [COMPREHENSIVE METABOLIC PN,CMP] [CHEM] AM Plan: Impression: S/P laparoscopic appendectomy converted to open appendectomy -Post-Op day 6 -Prolonged appendiceal perforation with abscess -NPO per general surgery; NG tube in place -> removed and diet advanced per primary service -Pain management per primary service -BP/HR management per primary service -NATALYA drain in place -IV fluids per primary service -> switched to NS plus KCl -Awaiting return or bowel function - expect prolonged ileus -> BMs continue -IV antibiotics per primary service -Dulcolax suppositories and maalox to assist bowel function per primary team Newly diagnosed diabetes mellitus type 2 -A1C 7.3 -Sliding scale insulin -Diabetic nurse educator consult -Telecommunication Lines Repairer consult -Q6HR blood glucose checks -> Change to QIDAC and Bedtime -Urine microalbumin 6.8 (WNL) -Start metformin BID with meals -Will need primary care follow-up on discharge -Lipid panel: Triglycerides 103, Total Cholesterol 163, LDL 122, HDL 32 -Will start statin -CMP/Magnesium AM starting today -ASA 81mg daily Plan: Consult ordered per Dr. Sarmiento, general surgery No home medications Other orders as indicated above Other labs per primary team DVT prophylaxis per primary team: Lovenox Code status: Full code; PCP: Dr. Al
[2018-07-05] MEDS: Aspirin 81 MG Tab.Chew PO SCH (08:38)
[2018-07-05] MEDS: Pantoprazole 40 MG Vial IVPUSH SCH (08:41)
[2018-07-05] MEDS: Bisacodyl 10 MG Supp RECTAL SCH (08:42)
[2018-07-05] MEDS: metFORMIN 500 MG Tab PO SCH ×2 (11:52→16:14)
[2018-07-05] MEDS: Levofloxacin/Dextrose 5%-Water 750 MG in Premix Bag 1 BAG IV SCH (16:14)
--- NOTE | 2018-07-05 17:49 | PCM.PN ---
- General Info Date of Service: 07/05/18 Functional Status: Reports: Pain Controlled - Review of Systems General: Reports: No Symptoms Pulmonary: Reports: No Symptoms Cardiovascular: Reports: No Symptoms Gastrointestinal: Reports: Constipation - Patient Data Vitals - Most Recent: Last Vital Signs Temp 98.6 F 07/05/18 13:00 Pulse 67 07/05/18 16:03 Resp 16 07/05/18 16:03 BP 135/95 H 07/05/18 16:03 Pulse Ox 98 07/05/18 16:03 Weight - Most Recent: 81.193 kg I&O - Last 24 Hours: Intake & Output 07/05/18 07/05/18 07/05/18 07:59 15:59 23:59 Intake Total 1198 60 900 Output Total 8 1150 Balance 1198 52 -250 Lab Results Last 24 Hours: Laboratory Results - last 24 hr 07/04/18 07/05/18 07/05/18 Range/Units 21:27 06:12 06:13 Sodium 135 L (136-145) mEq/L Potassium 4.3 (3.5-5.1) mEq/L Chloride 103 (98-107) mEq/L Carbon Dioxide 23 (21-32) mEq/L Anion Gap 13.3 (5-15) BUN 12 (7-18) mg/dL Creatinine 1.1 (0.7-1.3) mg/dL Est Cr Clr Drug Dosing 62.83 mL/min Estimated GFR (MDRD) > 60 (>60) mL/min BUN/Creatinine Ratio 10.9 L (14-18) Glucose 126 H (80-115) mg/dL POC Glucose 111 103 (80-115) mg/dL Calcium 8.6 (8.5-10.1) mg/dL Magnesium 2.2 (1.8-2.4) mg/dl Total Bilirubin 0.5 (0.2-1.0) mg/dL AST 78 H (15-37) U/L ALT 71 H (16-63) U/L Alkaline Phosphatase 70 (46-116) U/L Total Protein 7.0 (6.4-8.2) g/dl Albumin 2.5 L (3.4-5.0) g/dl Globulin 4.5 gm/dL Albumin/Globulin Ratio 0.6 L (1-2) 07/05/18 07/05/18 Range/Units 10:58 17:08 Sodium (136-145) mEq/L Potassium (3.5-5.1) mEq/L Chloride (98-107) mEq/L Carbon Dioxide (21-32) mEq/L Anion Gap (5-15) BUN (7-18) mg/dL Creatinine (0.7-1.3) mg/dL Est Cr Clr Drug Dosing mL/min Estimated GFR (MDRD) (>60) mL/min BUN/Creatinine Ratio (14-18) Glucose (80-115) mg/dL POC Glucose 194 H 127 H (80-115) mg/dL Calcium (8.5-10.1) mg/dL Magnesium (1.8-2.4) mg/dl Total Bilirubin (0.2-1.0) mg/dL AST (15-37) U/L ALT (16-63) U/L Alkaline Phosphatase (46-116) U/L Total Protein (6.4-8.2) g/dl Albumin (3.4-5.0) g/dl Globulin gm/dL Albumin/Globulin Ratio (1-2) Chris Results Last 24 Hours: Microbiology 06/29/18 17:35 Gram Stain - Final Appendix Anaerobic Culture - Preliminary Escherichia Coli Stenotrophomonas Maltophilia Streptococcus Salivarius Bacteroides Fragilis Group Med Orders - Current: Current Medications Acetaminophen (Tylenol) 600 mg RECTAL Q4H PRN PRN Reason: fever Last Admin: 06/30/18 17:12 Dose: 650 mg Aspirin (Aspirin) 81 mg PO DAILY [facility] Last Admin: 07/05/18 08:38 Dose: 81 mg Bisacodyl (Dulcolax) 10 mg RECTAL DAILY [facility] Last Admin: 07/05/18 08:42 Dose: Not Given Enoxaparin Sodium (Lovenox) 40 mg SUBCUT Q24H [facility] Last Admin: 07/04/18 21:21 Dose: 40 mg Hydralazine HCl (Apresoline) 20 mg IVPUSH Q6H PRN PRN Reason: Hypertension Levofloxacin/Dextrose 750 mg/ (Premix) 150 mls @ 100 mls/hr IV DAILY@1700 [facility] Last Admin: 07/05/18 16:14 Dose: 100 mls/hr Metronidazole 500 mg/ Premix 100 mls @ 200 mls/hr IV Q8H [facility] Last Admin: 07/05/18 11:38 Dose: 200 mls/hr Insulin Human Lispro (Humalog) 0 unit SUBCUT QIDACANDBED [facility]; Protocol Last Admin: 07/05/18 17:21 Dose: Not Given Metformin HCl (Glucophage) 500 mg PO BIDMEALS [facility] Last Admin: 07/05/18 16:14 Dose: 500 mg Ondansetron HCl (Zofran) 4 mg IVPUSH Q6H PRN PRN Reason: Nausea/Vomiting Oxycodone/Acetaminophen (Percocet 325-5 Mg) 0 tab PO Q4H PRN PRN Reason: Pain Last Admin: 07/05/18 16:14 Dose: 1 tab Pantoprazole Sodium (Protonix) 40 mg PO ACBRK [facility] Simvastatin (Zocor) 20 mg PO BEDTIME [facility] Discontinued Medications Al Hydroxide/Mg Hydroxide (Mag-Al Plus) 30 ml PO Q4H [facility] Stop: 07/03/18 11:31 Last Admin: 07/03/18 11:52 Dose: 30 ml Bupivacaine HCl (Marcaine 0.5%) Confirm Administered Dose 30 ml .ROUTE .STK-MED ONE Stop: 06/29/18 15:47 Last Admin: 06/29/18 17:05 Dose: 30 ml Ertapenem (Invanz) Confirm Administered Dose 1 gm .ROUTE .STK-MED ONE Stop: 06/29/18 17:00 Fentanyl (Sublimaze) Confirm Administered Dose 250 mcg .ROUTE .STK-MED ONE Stop: 06/29/18 15:44 Fentanyl (Sublimaze) Confirm Administered Dose 250 mcg .ROUTE .STK-MED ONE Stop: 06/29/18 18:08 Fentanyl (Sublimaze) 50 mcg IVPUSH Q5M PRN PRN Reason: Pain Hydromorphone HCl (Dilaudid) 0.5 mg IVPUSH ONETIME ONE Stop: 06/29/18 13:53 Last Admin: 06/29/18 14:18 Dose: 0.5 mg Hydromorphone HCl (Dilaudid) 0.5 mg IVPUSH ONETIME ONE Stop: 06/29/18 15:03 Last Admin: 06/29/18 15:52 Dose: 0.5 mg Hydromorphone HCl (Dilaudid) Confirm Administered Dose 0.5 mg .ROUTE .STK-MED ONE Stop: 06/29/18 17:39 Hydromorphone HCl (Dilaudid) Confirm Administered Dose 0.5 mg .ROUTE .STK-MED ONE Stop: 06/29/18 17:39 Hydromorphone HCl (Dilaudid) 0.5 mg IVPUSH ONETIME PRN PRN Reason: For pain Sodium Chloride (Normal Saline) 1,000 mls @ 250 mls/hr IV ONETIME ONE Stop: 06/29/18 17:51 Last Admin: 06/29/18 14:17 Dose: 250 mls/hr Lidocaine HCl (Xylocaine-Mpf 1%) Confirm Administered Dose 4 mls @ as directed .ROUTE .STK-MED ONE Stop: 06/29/18 15:44 Lactated Ringer's (Ringers, Lactated) Confirm Administered Dose 1,000 mls @ as directed .ROUTE .STK-MED ONE Stop: 06/29/18 17:11 Lactated Ringer's (Ringers, Lactated) Confirm Administered Dose 1,000 mls @ as directed .ROUTE .STK-MED ONE Stop: 06/29/18 17:32 Potassium Chloride/Dextrose/Sod Cl (D5 1/2 Ns W/ 20 Meq/L Kcl) 1,000 mls @ 125 mls/hr IV ASDIRECTED [facility] Last Admin: 07/03/18 07:38 Dose: 125 mls/hr Ertapenem 1 gm/ Sodium (Chloride) 100 mls @ 200 mls/hr IV Q24H [facility] Last Admin: 06/30/18 17:10 Dose: 200 mls/hr Sodium Chloride (Normal Saline) 1,000 mls @ 150 mls/hr IV ONETIME ONE Stop: 07/01/18 00:17 Last Admin: 06/30/18 19:45 Dose: Not Given Sodium Chloride (Normal Saline) 1,000 mls @ 999 mls/hr IV ONETIME ONE Stop: 06/30/18 19:23 Last Admin: 06/30/18 18:45 Dose: 999 mls/hr Potassium Chloride/Sodium Chloride (Normal Saline With 20 Meq Kcl) 1,000 mls @ 75 mls/hr IV ASDIRECTED [facility] Last Admin: 07/04/18 16:37 Dose: 75 mls/hr Insulin Human Lispro (Humalog) 0 unit SUBCUT Q6H [facility]; Protocol Last Admin: 06/30/18 07:50 Dose: Not Given Insulin Human Lispro (Humalog) 0 unit SUBCUT Q6H [facility]; Protocol Last Admin: 07/03/18 12:03 Dose: Not Given Midazolam HCl (Versed 1 Mg/Ml) Confirm Administered Dose 2 mg .ROUTE .STK-MED ONE Stop: 06/29/18 15:44 Morphine Sulfate (Morphine) 4 mg IVPUSH Q1H PRN PRN Reason: Pain (severe 7-10) Stop: 06/30/18 21:01 Last Admin: 06/30/18 19:37 Dose: 4 mg Morphine Sulfate (Morphine) 4 mg IVPUSH Q1H PRN PRN Reason: Pain Last Admin: 07/03/18 14:33 Dose: 4 mg Ondansetron HCl (Zofran) 4 mg IVPUSH ONETIME ONE Stop: 06/29/18 13:53 Last Admin: 06/29/18 14:22 Dose: 4 mg Ondansetron HCl (Zofran) Confirm Administered Dose 4 mg .ROUTE .STK-MED ONE Stop: 06/29/18 15:43 Pantoprazole Sodium (Protonix Iv) 40 mg IVPUSH DAILY [facility] Last Admin: 07/05/18 08:41 Dose: 40 mg Phenylephrine HCl (Phenylephrine In Ns 100 Mcg/Ml) Confirm Administered Dose 1 mg .ROUTE .STK-MED ONE Stop: 06/29/18 17:12 Propofol (Diprivan 20 Ml) Confirm Administered Dose 200 mg .ROUTE .STK-MED ONE Stop: 06/29/18 15:44 Rocuronium [place] (Zemuron) Confirm Administered Dose 50 mg .ROUTE .STK-MED ONE Stop: 06/29/18 15:43 Rocuronium [place] (Zemuron) Confirm Administered Dose 50 mg .ROUTE .STK-MED ONE Stop: 06/29/18 17:38 - Exam General: Alert, Oriented Lungs: Clear to Auscultation, Normal Respiratory Effort Cardiovascular: Regular Rate, Regular Rhythm GI/Abdominal Exam: Distended, Other (surgical wound open and clean ) - Problem List Review Problem List Initiated/Reviewed/Updated: Yes - My Orders Last 24 Hours: My Active Orders 07/05/18 17:25 Communication Order [RC] BID 07/06/18 06:00 Pantoprazole [ProTONIX] 40 mg PO ACBRK - Assessment Assessment:: Stable, continue Abx, bowel movements positive Continued improvement - Plan Plan:: Impression: POD 1, S/P appendectomy Newly diagnosed diabetes mellitus type 2 Plan: Begin Humalog sliding scale BP mgt per Primary service Pain mgt per Primary service Diabetic teaching Dietary consult DVT/GI prophylaxis NG removed, start clear liquid diet, shower,DC morphine, percocet ordered Advance diet s/p appendectomy and drainage of abscess improving VS stable eating and tolerating diet ass stable plan as per orders MIGDALIA
[2018-07-05] MEDS ORDERED: Simvastatin 20 MG Tab PO SCH (21:00)
[2018-07-05] MEDS: Enoxaparin 40 MG/0.4 ML Syringe SUBCUT SCH (21:43)
[2018-07-06] MEDS: Acetaminophen/oxyCODONE 325-5 MG Tab PO PRN ×6 (03:28→22:53)
[2018-07-06] MEDS: metroNIDAZOLE/Normal Saline 500 MG in Premix Bag 1 BAG IV SCH ×2 (03:29→12:08)
[2018-07-06] MEDS: metFORMIN 500 MG Tab PO SCH ×2 (06:33→17:42)
[2018-07-06] MEDS: Pantoprazole 40 MG Tab.CR PO SCH (06:33)
[2018-07-06] MEDS: Insulin Lispro 100 Unit/ML 3 ML KwikPen SUBCUT SCH ×4 (06:34→21:40)
--- NOTE | 2018-07-06 07:22 | PCM.CONSN ---
- General Info Date of Service: 07/06/18 Admission Dx/Problem (Free Text): Appendicitis Subjective Update: In to see Iraj. He has been up ambulating frequently. Abdominal pain is improved. Minimal output from drain. He has been eating and drinking well. No concerns from him or nursing. Dr. Quarles saw him yesterday and Dr. Sapp is taking over today. His liver enzymes are elevated today although they were slightly elevated prior to starting his statin. Will discontinue and defer to PCP for further treatment after this episode. Functional Status: Reports: Pain Controlled, Tolerating Diet, Ambulating, Urinating, Incentive Spirometry. Denies: New Symptoms - Review of Systems General: Reports: No Symptoms. Denies: Fever, Weakness, Fatigue, Malaise, Chills HEENT: Reports: No Symptoms. Denies: Sinus Congestion, Sore Throat Pulmonary: Reports: No Symptoms. Denies: Shortness of Breath, Pleuritic Chest Pain, Cough, Sputum, Wheezing Cardiovascular: Reports: No Symptoms. Denies: Chest Pain, Palpitations, Dyspnea on Exertion, Edema, Lightheadedness Gastrointestinal: Reports: Abdominal Pain (improving ). Denies: Constipation, Decreased Appetite, Diarrhea, Nausea, Vomiting Genitourinary: Reports: No Symptoms. Denies: Dysuria, Frequency, Burning, Pain , Urgency Musculoskeletal: Reports: No Symptoms Skin: Reports: No Symptoms Neurological: Reports: No Symptoms. Denies: Confusion, Numbness, Pre-Existing Deficit, Trouble Speaking, Difficulty Walking, Weakness, Gait Disturbance Psychiatric: Reports: No Symptoms - Patient Data Vitals - Most Recent: Last Vital Signs Temp 99.0 F 07/06/18 03:14 Pulse 72 07/06/18 03:15 Resp 12 07/06/18 03:14 BP 150/95 H 07/06/18 03:15 Pulse Ox 94 L 07/06/18 03:15 Weight - Most Recent: 173 lb 9.6 oz I&O - Last 24 Hours: Intake & Output 07/05/18 07/06/18 07/06/18 22:59 06:59 14:59 Intake Total 960 400 Output Total 1150 100 Balance -190 300 Lab Results Last 24 Hours: Laboratory Results - last 24 hr 07/05/18 07/05/18 07/05/18 Range/Units 06:12 06:13 10:58 Sodium (136-145) mEq/L Potassium (3.5-5.1) mEq/L Chloride (98-107) mEq/L Carbon Dioxide (21-32) mEq/L Anion Gap (5-15) BUN 12 (7-18) mg/dL Creatinine (0.7-1.3) mg/dL Est Cr Clr Drug Dosing mL/min Estimated GFR (MDRD) (>60) mL/min BUN/Creatinine Ratio 10.9 L (14-18) Glucose (80-115) mg/dL POC Glucose 103 194 H (80-115) mg/dL Calcium (8.5-10.1) mg/dL Magnesium (1.8-2.4) mg/dl Total Bilirubin (0.2-1.0) mg/dL AST (15-37) U/L ALT (16-63) U/L Alkaline Phosphatase (46-116) U/L Total Protein (6.4-8.2) g/dl Albumin (3.4-5.0) g/dl Globulin gm/dL Albumin/Globulin Ratio (1-2) 07/05/18 07/05/18 07/06/18 Range/Units 17:08 21:42 05:01 Sodium 132 L (136-145) mEq/L Potassium 3.9 (3.5-5.1) mEq/L Chloride 98 (98-107) mEq/L Carbon Dioxide 25 (21-32) mEq/L Anion Gap 12.9 (5-15) BUN 18 (7-18) mg/dL Creatinine 1.2 (0.7-1.3) mg/dL Est Cr Clr Drug Dosing 57.60 mL/min Estimated GFR (MDRD) > 60 (>60) mL/min BUN/Creatinine Ratio 15.0 (14-18) Glucose 122 H (80-115) mg/dL POC Glucose 127 H 126 H (80-115) mg/dL Calcium 8.8 (8.5-10.1) mg/dL Magnesium 2.1 (1.8-2.4) mg/dl Total Bilirubin 0.4 (0.2-1.0) mg/dL AST 120 H (15-37) U/L ALT 112 H (16-63) U/L Alkaline Phosphatase 79 (46-116) U/L Total Protein 7.2 (6.4-8.2) g/dl Albumin 2.7 L (3.4-5.0) g/dl Globulin 4.5 gm/dL Albumin/Globulin Ratio 0.6 L (1-2) 07/06/18 Range/Units 06:33 Sodium (136-145) mEq/L Potassium (3.5-5.1) mEq/L Chloride (98-107) mEq/L Carbon Dioxide (21-32) mEq/L Anion Gap (5-15) BUN (7-18) mg/dL Creatinine (0.7-1.3) mg/dL Est Cr Clr Drug Dosing mL/min Estimated GFR (MDRD) (>60) mL/min BUN/Creatinine Ratio (14-18) Glucose (80-115) mg/dL POC Glucose 111 (80-115) mg/dL Calcium (8.5-10.1) mg/dL Magnesium (1.8-2.4) mg/dl Total Bilirubin (0.2-1.0) mg/dL AST (15-37) U/L ALT (16-63) U/L Alkaline Phosphatase (46-116) U/L Total Protein (6.4-8.2) g/dl Albumin (3.4-5.0) g/dl Globulin gm/dL Albumin/Globulin Ratio (1-2) Chris Results Last 24 Hours: Microbiology 06/29/18 17:35 Gram Stain - Final Appendix Anaerobic Culture - Preliminary Escherichia Coli Stenotrophomonas Maltophilia Streptococcus Salivarius Bacteroides Fragilis Group Clostridium Species Eggerthella Lenta Prevotella Species Probable Fusobacterium Species Med Orders - Current: Current Medications Acetaminophen (Tylenol) 600 mg RECTAL Q4H PRN PRN Reason: fever Last Admin: 06/30/18 17:12 Dose: 650 mg Aspirin (Aspirin) 81 mg PO DAILY [facility] Last Admin: 07/05/18 08:38 Dose: 81 mg Bisacodyl (Dulcolax) 10 mg RECTAL DAILY [facility] Last Admin: 07/05/18 08:42 Dose: Not Given Enoxaparin Sodium (Lovenox) 40 mg SUBCUT Q24H [facility] Last Admin: 07/05/18 21:43 Dose: 40 mg Hydralazine HCl (Apresoline) 20 mg IVPUSH Q6H PRN PRN Reason: Hypertension Levofloxacin/Dextrose 750 mg/ (Premix) 150 mls @ 100 mls/hr IV DAILY@1700 [facility] Last Admin: 07/05/18 16:14 Dose: 100 mls/hr Metronidazole 500 mg/ Premix 100 mls @ 200 mls/hr IV Q8H [facility] Last Admin: 07/06/18 03:29 Dose: 200 mls/hr Insulin Human Lispro (Humalog) 0 unit SUBCUT QIDACANDBED [facility]; Protocol Last Admin: 07/06/18 06:34 Dose: Not Given Metformin HCl (Glucophage) 500 mg PO BIDMEALS [facility] Last Admin: 07/06/18 06:33 Dose: 500 mg Ondansetron HCl (Zofran) 4 mg IVPUSH Q6H PRN PRN Reason: Nausea/Vomiting Oxycodone/Acetaminophen (Percocet 325-5 Mg) 0 tab PO Q4H PRN PRN Reason: Pain Last Admin: 07/06/18 03:28 Dose: 1 tab Pantoprazole Sodium (Protonix) 40 mg PO ACBRK [facility] Last Admin: 07/06/18 06:33 Dose: 40 mg Simvastatin (Zocor) 20 mg PO BEDTIME [facility] Last Admin: 07/05/18 21:43 Dose: 20 mg Discontinued Medications Al Hydroxide/Mg Hydroxide (Mag-Al Plus) 30 ml PO Q4H [facility] Stop: 07/03/18 11:31 Last Admin: 07/03/18 11:52 Dose: 30 ml Bupivacaine HCl (Marcaine 0.5%) Confirm Administered Dose 30 ml .ROUTE .STK-MED ONE Stop: 06/29/18 15:47 Last Admin: 06/29/18 17:05 Dose: 30 ml Ertapenem (Invanz) Confirm Administered Dose 1 gm .ROUTE .STK-MED ONE Stop: 06/29/18 17:00 Fentanyl (Sublimaze) Confirm Administered Dose 250 mcg .ROUTE .STK-MED ONE Stop: 06/29/18 15:44 Fentanyl (Sublimaze) Confirm Administered Dose 250 mcg .ROUTE .STK-MED ONE Stop: 06/29/18 18:08 Fentanyl (Sublimaze) 50 mcg IVPUSH Q5M PRN PRN Reason: Pain Hydromorphone HCl (Dilaudid) 0.5 mg IVPUSH ONETIME ONE Stop: 06/29/18 13:53 Last Admin: 06/29/18 14:18 Dose: 0.5 mg Hydromorphone HCl (Dilaudid) 0.5 mg IVPUSH ONETIME ONE Stop: 06/29/18 15:03 Last Admin: 06/29/18 15:52 Dose: 0.5 mg Hydromorphone HCl (Dilaudid) Confirm Administered Dose 0.5 mg .ROUTE .STK-MED ONE Stop: 06/29/18 17:39 Hydromorphone HCl (Dilaudid) Confirm Administered Dose 0.5 mg .ROUTE .STK-MED ONE Stop: 06/29/18 17:39 Hydromorphone HCl (Dilaudid) 0.5 mg IVPUSH ONETIME PRN PRN Reason: For pain Sodium Chloride (Normal Saline) 1,000 mls @ 250 mls/hr IV ONETIME ONE Stop: 06/29/18 17:51 Last Admin: 06/29/18 14:17 Dose: 250 mls/hr Lidocaine HCl (Xylocaine-Mpf 1%) Confirm Administered Dose 4 mls @ as directed .ROUTE .STK-MED ONE Stop: 06/29/18 15:44 Lactated Ringer's (Ringers, Lactated) Confirm Administered Dose 1,000 mls @ as directed .ROUTE .STK-MED ONE Stop: 06/29/18 17:11 Lactated Ringer's (Ringers, Lactated) Confirm Administered Dose 1,000 mls @ as directed .ROUTE .STK-MED ONE Stop: 06/29/18 17:32 Potassium Chloride/Dextrose/Sod Cl (D5 1/2 Ns W/ 20 Meq/L Kcl) 1,000 mls @ 125 mls/hr IV ASDIRECTED [facility] Last Admin: 07/03/18 07:38 Dose: 125 mls/hr Ertapenem 1 gm/ Sodium (Chloride) 100 mls @ 200 mls/hr IV Q24H [facility] Last Admin: 06/30/18 17:10 Dose: 200 mls/hr Sodium Chloride (Normal Saline) 1,000 mls @ 150 mls/hr IV ONETIME ONE Stop: 07/01/18 00:17 Last Admin: 06/30/18 19:45 Dose: Not Given Sodium Chloride (Normal Saline) 1,000 mls @ 999 mls/hr IV ONETIME ONE Stop: 06/30/18 19:23 Last Admin: 06/30/18 18:45 Dose: 999 mls/hr Potassium Chloride/Sodium Chloride (Normal Saline With 20 Meq Kcl) 1,000 mls @ 75 mls/hr IV ASDIRECTED [facility] Last Admin: 07/04/18 16:37 Dose: 75 mls/hr Insulin Human Lispro (Humalog) 0 unit SUBCUT Q6H [facility]; Protocol Last Admin: 06/30/18 07:50 Dose: Not Given Insulin Human Lispro (Humalog) 0 unit SUBCUT Q6H [facility]; Protocol Last Admin: 07/03/18 12:03 Dose: Not Given Midazolam HCl (Versed 1 Mg/Ml) Confirm Administered Dose 2 mg .ROUTE .STK-MED ONE Stop: 06/29/18 15:44 Morphine Sulfate (Morphine) 4 mg IVPUSH Q1H PRN PRN Reason: Pain (severe 7-10) Stop: 06/30/18 21:01 Last Admin: 06/30/18 19:37 Dose: 4 mg Morphine Sulfate (Morphine) 4 mg IVPUSH Q1H PRN PRN Reason: Pain Last Admin: 07/03/18 14:33 Dose: 4 mg Ondansetron HCl (Zofran) 4 mg IVPUSH ONETIME ONE Stop: 06/29/18 13:53 Last Admin: 06/29/18 14:22 Dose: 4 mg Ondansetron HCl (Zofran) Confirm Administered Dose 4 mg .ROUTE .STK-MED ONE Stop: 06/29/18 15:43 Pantoprazole Sodium (Protonix Iv) 40 mg IVPUSH DAILY [facility] Last Admin: 07/05/18 08:41 Dose: 40 mg Phenylephrine HCl (Phenylephrine In Ns 100 Mcg/Ml) Confirm Administered Dose 1 mg .ROUTE .STK-MED ONE Stop: 06/29/18 17:12 Propofol (Diprivan 20 Ml) Confirm Administered Dose 200 mg .ROUTE .STK-MED ONE Stop: 06/29/18 15:44 Rocuronium [place] (Zemuron) Confirm Administered Dose 50 mg .ROUTE .STK-MED ONE Stop: 06/29/18 15:43 Rocuronium [place] (Zemuron) Confirm Administered Dose 50 mg .ROUTE .STK-MED ONE Stop: 06/29/18 17:38 - Exam Quality Assessment: DVT Prophylaxis General: Alert, Oriented, Cooperative, No Acute Distress HEENT: Pupils Equal, Pupils Reactive, EOMI, Mucous Membr. Moist/Katy Neck: Supple, Trachea Midline, No JVD Lungs: Clear to Auscultation, Normal Respiratory Effort Cardiovascular: Regular Rate, Regular Rhythm GI/Abdominal Exam: Normal Bowel Sounds, Soft, No Distention, No Abnormal Bruit, Tender (mild ) (Male) Exam: Deferred Back Exam: Normal Inspection, Full Range of Motion Extremities: Normal Inspection, Normal Range of Motion, Non-Tender, No Pedal Edema, Normal Capillary Refill Peripheral Pulses: 3+: Radial (L), Radial (R), Dorsalis Pedis (L), Dorsalis Pedis (R) Skin: Warm, Dry, Intact Wound/Incisions: Dressing Dry and Intact Neurological: No New Focal Deficit Psy/Mental Status: Alert, Normal Affect, Normal Mood Consult PN Assessment/Plan POD#: 7 (1) Rupture of appendix SNOMED Code(s): 86572751 Code(s): K35.2 - ACUTE APPENDICITIS WITH GENERALIZED PERITONIT * DO NOT USE * Priority: High Current Visit: Yes (2) Diabetes mellitus, new onset SNOMED Code(s): 859074510, 100136318 Code(s): E11.9 - TYPE 2 DIABETES MELLITUS WITHOUT COMPLICATIONS Priority: High Current Visit: Yes (3) Appendicitis SNOMED Code(s): 00156701 Code(s): K37 - UNSPECIFIED APPENDICITIS Priority: High Current Visit: Yes Qualifiers: Appendicitis type: acute appendicitis (4) Hyperlipidemia associated with type 2 diabetes mellitus SNOMED Code(s): 822172500054, 803996179571 Code(s): E11.69 - TYPE 2 DIABETES MELLITUS WITH OTHER SPECIFIED COMPLICATION ; E78.5 - HYPERLIPIDEMIA, UNSPECIFIED Priority: Medium Current Visit: Yes Problem List Initiated/Reviewed/Updated: Yes My Orders Last 24 Hours: My Active Orders 07/05/18 09:00 Aspirin 81 mg PO DAILY 07/05/18 11:00 metFORMIN [Glucophage] 500 mg PO BIDMEALS 07/05/18 21:00 Simvastatin [Zocor] 20 mg PO BEDTIME 07/07/18 05:11 CMP [COMPREHENSIVE METABOLIC PN,CMP] [CHEM] AM MAGNESIUM [CHEM] AM 07/08/18 05:11 CMP [COMPREHENSIVE METABOLIC PN,CMP] [CHEM] AM MAGNESIUM [CHEM] AM 07/09/18 05:11 CMP [COMPREHENSIVE METABOLIC PN,CMP] [CHEM] AM Plan: Impression: S/P laparoscopic appendectomy converted to open appendectomy -Post-Op day 7 -Prolonged appendiceal perforation with abscess -NPO per general surgery; NG tube in place -> removed and diet advanced per primary service -Pain management per primary service -BP/HR management per primary service -NATALYA drain in place -IV fluids per primary service -> switched to NS plus KCl -Awaiting return or bowel function - expect prolonged ileus -> BMs continue -IV antibiotics per primary service -Dulcolax suppositories and maalox to assist bowel function per primary team Newly diagnosed diabetes mellitus type 2 -A1C 7.3 -Sliding scale insulin -Diabetic nurse educator consult -Cathodic Protection Technician consult -Q6HR blood glucose checks -> Change to QIDAC and Bedtime -Urine microalbumin 6.8 (WNL) -Start metformin BID with meals -Will need primary care follow-up on discharge -Lipid panel: Triglycerides 103, Total Cholesterol 163, LDL 122, HDL 32 -Will start statin -> elevated liver enzymes. Will stop and defer to primary care -CMP/Magnesium AM starting today -ASA 81mg daily Plan: Consult ordered per Dr. Sarmiento, general surgery No home medications Other orders as indicated above Other labs per primary team DVT prophylaxis per primary team: Lovenox Code status: Full code; PCP: Dr. Al From a hospitalist standpoint he is doing well. Will be clear for discharge when approved by primary team. Will continue ASA and metformin on discharge. Suggest follow-up with PCP and diabetic nurse educator outpatient after discharge.
[2018-07-06] MEDS: Aspirin 81 MG Tab.Chew PO SCH (10:23)
[2018-07-06] MEDS: Bisacodyl 10 MG Supp RECTAL SCH (12:10)
--- NOTE | 2018-07-06 15:09 | PCM.CONSN ---
- General Info Date of Service: 07/06/18 Admission Dx/Problem (Free Text): Appendicitis Subjective Update: Patient reports pain is improved. He has an appetite and is tolerating his diet. He is having bowel movements. He denies any diarrhea. He denies any nausea Functional Status: Reports: Pain Controlled - Patient Data Vitals - Most Recent: Last Vital Signs Temp 37.2 C 07/06/18 03:14 Pulse 73 07/06/18 10:23 Resp 20 07/06/18 10:23 BP 147/97 H 07/06/18 10:23 Pulse Ox 98 07/06/18 10:23 Weight - Most Recent: 78.744 kg I&O - Last 24 Hours: Intake & Output 07/06/18 07/06/18 07/06/18 06:59 14:59 22:59 Intake Total 400 360 Output Total 100 Balance 300 360 Lab Results Last 24 Hours: Laboratory Results - last 24 hr 07/05/18 07/05/18 07/06/18 Range/Units 17:08 21:42 05:01 Sodium 132 L (136-145) mEq/L Potassium 3.9 (3.5-5.1) mEq/L Chloride 98 (98-107) mEq/L Carbon Dioxide 25 (21-32) mEq/L Anion Gap 12.9 (5-15) BUN 18 (7-18) mg/dL Creatinine 1.2 (0.7-1.3) mg/dL Est Cr Clr Drug Dosing 57.60 mL/min Estimated GFR (MDRD) > 60 (>60) mL/min BUN/Creatinine Ratio 15.0 (14-18) Glucose 122 H (80-115) mg/dL POC Glucose 127 H 126 H (80-115) mg/dL Calcium 8.8 (8.5-10.1) mg/dL Magnesium 2.1 (1.8-2.4) mg/dl Total Bilirubin 0.4 (0.2-1.0) mg/dL AST 120 H (15-37) U/L ALT 112 H (16-63) U/L Alkaline Phosphatase 79 (46-116) U/L Total Protein 7.2 (6.4-8.2) g/dl Albumin 2.7 L (3.4-5.0) g/dl Globulin 4.5 gm/dL Albumin/Globulin Ratio 0.6 L (1-2) 07/06/18 07/06/18 Range/Units 06:33 12:06 Sodium (136-145) mEq/L Potassium (3.5-5.1) mEq/L Chloride (98-107) mEq/L Carbon Dioxide (21-32) mEq/L Anion Gap (5-15) BUN (7-18) mg/dL Creatinine (0.7-1.3) mg/dL Est Cr Clr Drug Dosing mL/min Estimated GFR (MDRD) (>60) mL/min BUN/Creatinine Ratio (14-18) Glucose (80-115) mg/dL POC Glucose 111 138 H (80-115) mg/dL Calcium (8.5-10.1) mg/dL Magnesium (1.8-2.4) mg/dl Total Bilirubin (0.2-1.0) mg/dL AST (15-37) U/L ALT (16-63) U/L Alkaline Phosphatase (46-116) U/L Total Protein (6.4-8.2) g/dl Albumin (3.4-5.0) g/dl Globulin gm/dL Albumin/Globulin Ratio (1-2) Chris Results Last 24 Hours: Microbiology 06/29/18 17:35 Gram Stain - Final Appendix Anaerobic Culture - Final Escherichia Coli Stenotrophomonas Maltophilia Streptococcus Salivarius Bacteroides Fragilis Group Clostridium Species Eggerthella Lenta Prevotella Species Probable Fusobacterium Species Med Orders - Current: Current Medications Acetaminophen (Tylenol) 600 mg RECTAL Q4H PRN PRN Reason: fever Last Admin: 06/30/18 17:12 Dose: 650 mg Aspirin (Aspirin) 81 mg PO DAILY [facility] Last Admin: 07/06/18 10:23 Dose: 81 mg Bisacodyl (Dulcolax) 10 mg RECTAL DAILY [facility] Last Admin: 07/06/18 12:10 Dose: Not Given Enoxaparin Sodium (Lovenox) 40 mg SUBCUT Q24H [facility] Last Admin: 07/05/18 21:43 Dose: 40 mg Hydralazine HCl (Apresoline) 20 mg IVPUSH Q6H PRN PRN Reason: Hypertension Levofloxacin/Dextrose 750 mg/ (Premix) 150 mls @ 100 mls/hr IV DAILY@1700 [facility] Last Admin: 07/05/18 16:14 Dose: 100 mls/hr Metronidazole 500 mg/ Premix 100 mls @ 200 mls/hr IV Q8H [facility] Last Admin: 07/06/18 12:08 Dose: 200 mls/hr Insulin Human Lispro (Humalog) 0 unit SUBCUT QIDACANDBED [facility]; Protocol Last Admin: 07/06/18 12:10 Dose: Not Given Metformin HCl (Glucophage) 500 mg PO BIDMEALS [facility] Last Admin: 07/06/18 06:33 Dose: 500 mg Ondansetron HCl (Zofran) 4 mg IVPUSH Q6H PRN PRN Reason: Nausea/Vomiting Oxycodone/Acetaminophen (Percocet 325-5 Mg) 0 tab PO Q4H PRN PRN Reason: Pain Last Admin: 07/06/18 14:38 Dose: 1 tab Pantoprazole Sodium (Protonix) 40 mg PO ACBRK [facility] Last Admin: 07/06/18 06:33 Dose: 40 mg Discontinued Medications Al Hydroxide/Mg Hydroxide (Mag-Al Plus) 30 ml PO Q4H [facility] Stop: 07/03/18 11:31 Last Admin: 07/03/18 11:52 Dose: 30 ml Bupivacaine HCl (Marcaine 0.5%) Confirm Administered Dose 30 ml .ROUTE .STK-MED ONE Stop: 06/29/18 15:47 Last Admin: 06/29/18 17:05 Dose: 30 ml Ertapenem (Invanz) Confirm Administered Dose 1 gm .ROUTE .STK-MED ONE Stop: 06/29/18 17:00 Fentanyl (Sublimaze) Confirm Administered Dose 250 mcg .ROUTE .STK-MED ONE Stop: 06/29/18 15:44 Fentanyl (Sublimaze) Confirm Administered Dose 250 mcg .ROUTE .STK-MED ONE Stop: 06/29/18 18:08 Fentanyl (Sublimaze) 50 mcg IVPUSH Q5M PRN PRN Reason: Pain Hydromorphone HCl (Dilaudid) 0.5 mg IVPUSH ONETIME ONE Stop: 06/29/18 13:53 Last Admin: 06/29/18 14:18 Dose: 0.5 mg Hydromorphone HCl (Dilaudid) 0.5 mg IVPUSH ONETIME ONE Stop: 06/29/18 15:03 Last Admin: 06/29/18 15:52 Dose: 0.5 mg Hydromorphone HCl (Dilaudid) Confirm Administered Dose 0.5 mg .ROUTE .STK-MED ONE Stop: 06/29/18 17:39 Hydromorphone HCl (Dilaudid) Confirm Administered Dose 0.5 mg .ROUTE .STK-MED ONE Stop: 06/29/18 17:39 Hydromorphone HCl (Dilaudid) 0.5 mg IVPUSH ONETIME PRN PRN Reason: For pain Sodium Chloride (Normal Saline) 1,000 mls @ 250 mls/hr IV ONETIME ONE Stop: 06/29/18 17:51 Last Admin: 06/29/18 14:17 Dose: 250 mls/hr Lidocaine HCl (Xylocaine-Mpf 1%) Confirm Administered Dose 4 mls @ as directed .ROUTE .[facility]-MED ONE Stop: 06/29/18 15:44 Lactated Ringer's (Ringers, Lactated) Confirm Administered Dose 1,000 mls @ as directed .ROUTE .[facility]-MED ONE Stop: 06/29/18 17:11 Lactated Ringer's (Ringers, Lactated) Confirm Administered Dose 1,000 mls @ as directed .ROUTE .[facility]-MED ONE Stop: 06/29/18 17:32 Potassium Chloride/Dextrose/Sod Cl (D5 1/2 Ns W/ 20 Meq/L Kcl) 1,000 mls @ 125 mls/hr IV ASDIRECTED [facility] Last Admin: 07/03/18 07:38 Dose: 125 mls/hr Ertapenem 1 gm/ Sodium (Chloride) 100 mls @ 200 mls/hr IV Q24H [facility] Last Admin: 06/30/18 17:10 Dose: 200 mls/hr Sodium Chloride (Normal Saline) 1,000 mls @ 150 mls/hr IV ONETIME ONE Stop: 07/01/18 00:17 Last Admin: 06/30/18 19:45 Dose: Not Given Sodium Chloride (Normal Saline) 1,000 mls @ 999 mls/hr IV ONETIME ONE Stop: 06/30/18 19:23 Last Admin: 06/30/18 18:45 Dose: 999 mls/hr Potassium Chloride/Sodium Chloride (Normal Saline With 20 Meq Kcl) 1,000 mls @ 75 mls/hr IV ASDIRECTED [facility] Last Admin: 07/04/18 16:37 Dose: 75 mls/hr Insulin Human Lispro (Humalog) 0 unit SUBCUT Q6H [facility]; Protocol Last Admin: 06/30/18 07:50 Dose: Not Given Insulin Human Lispro (Humalog) 0 unit SUBCUT Q6H [facility]; Protocol Last Admin: 07/03/18 12:03 Dose: Not Given Midazolam HCl (Versed 1 Mg/Ml) Confirm Administered Dose 2 mg .ROUTE .STK-MED ONE Stop: 06/29/18 15:44 Morphine Sulfate (Morphine) 4 mg IVPUSH Q1H PRN PRN Reason: Pain (severe 7-10) Stop: 06/30/18 21:01 Last Admin: 06/30/18 19:37 Dose: 4 mg Morphine Sulfate (Morphine) 4 mg IVPUSH Q1H PRN PRN Reason: Pain Last Admin: 07/03/18 14:33 Dose: 4 mg Ondansetron HCl (Zofran) 4 mg IVPUSH ONETIME ONE Stop: 06/29/18 13:53 Last Admin: 06/29/18 14:22 Dose: 4 mg Ondansetron HCl (Zofran) Confirm Administered Dose 4 mg .ROUTE .STK-MED ONE Stop: 06/29/18 15:43 Pantoprazole Sodium (Protonix Iv) 40 mg IVPUSH DAILY [facility] Last Admin: 07/05/18 08:41 Dose: 40 mg Phenylephrine HCl (Phenylephrine In Ns 100 Mcg/Ml) Confirm Administered Dose 1 mg .ROUTE .STK-MED ONE Stop: 06/29/18 17:12 Propofol (Diprivan 20 Ml) Confirm Administered Dose 200 mg .ROUTE .STK-MED ONE Stop: 06/29/18 15:[address] [place] (Zemuron) Confirm Administered Dose 50 mg .ROUTE .STK-MED ONE Stop: 06/29/18 15:[address] [place] (Zemuron) Confirm Administered Dose 50 mg .ROUTE .STK-MED ONE Stop: 06/29/18 17:38 Simvastatin (Zocor) 20 mg PO BEDTIME [facility] Last Admin: 07/05/18 21:43 Dose: 20 mg - Exam General: Alert, Oriented HEENT: Pupils Equal, EOMI Lungs: Normal Respiratory Effort GI/Abdominal Exam: Soft, Distended (mild), Tender (around incision) Wound/Incisions: Other (incision open between venkat, clean and minimal serous drainage) Consult PN Assessment/Plan POD#: 7 (1) Appendicitis SNOMED Code(s): 45405134 Code(s): K37 - UNSPECIFIED APPENDICITIS Priority: High Current Visit: Yes Qualifiers: Appendicitis type: acute appendicitis (2) Rupture of appendix SNOMED Code(s): 71004568 Code(s): K35.2 - ACUTE APPENDICITIS WITH GENERALIZED PERITONIT * DO NOT USE * Priority: High Current Visit: Yes Problem List Initiated/Reviewed/Updated: Yes Plan: 62-year-old male who is post op day. 7. Status post appendectomy for ruptured appendix with abscess. He is doing well. Drain removed today - Continue wet-to-dry saline dressings twice a day to the midline. - Will monitor drain output. When less than 50, we will d/c drain - Transition to by mouth antibiotics with by mouth Levaquin and Flagyl, d/c IV abx - Daily CBC and CMP - Possible discharge home tomorrow if patient continues to do well Aracely Reyes MD General Surgery
[2018-07-06] MEDS ORDERED: Levofloxacin 750 MG Tab PO SCH (17:00)
[2018-07-06] MEDS: metroNIDAZOLE 500 MG Tab PO SCH (17:41)
[2018-07-06] MEDS: Enoxaparin 40 MG/0.4 ML Syringe SUBCUT SCH (21:41)
[2018-07-07] MEDS: metroNIDAZOLE 500 MG Tab PO SCH ×2 (01:16→10:23)
[2018-07-07] MEDS: Acetaminophen/oxyCODONE 325-5 MG Tab PO PRN ×2 (04:57→13:47)
[2018-07-07] MEDS: metFORMIN 500 MG Tab PO SCH (06:46)
[2018-07-07] MEDS: Pantoprazole 40 MG Tab.CR PO SCH (06:46)
[2018-07-07] MEDS: Insulin Lispro 100 Unit/ML 3 ML KwikPen SUBCUT SCH ×2 (08:38→13:13)
--- NOTE | 2018-07-07 08:48 | PCM.CONSN ---
- General Info Date of Service: 07/07/18 Admission Dx/Problem (Free Text): Appendicitis Subjective Update: Pt reports pain is controlled. Tolerating diet. He had a bowel movement this am. No nausea. - Patient Data Vitals - Most Recent: Last Vital Signs Temp 36.5 C 07/07/18 07:42 Pulse 81 07/07/18 07:44 Resp 16 07/07/18 07:42 BP 158/87 H 07/07/18 07:44 Pulse Ox 98 07/07/18 07:44 Weight - Most Recent: 80.104 kg I&O - Last 24 Hours: Intake & Output 07/06/18 07/07/18 07/07/18 22:59 06:59 14:59 Intake Total 2180 800 Output Total 1035 50 Balance 1145 750 Lab Results Last 24 Hours: Laboratory Results - last 24 hr 07/06/18 07/06/18 07/06/18 Range/Units 12:06 17:30 20:31 WBC (4.23-9.07) K/mm3 RBC (4.63-6.08) M/mm3 Hgb (13.7-17.5) gm/L Hct (40.1-51.0) % MCV (79.0-92.2) fl MCH (25.7-32.2) pg MCHC (32.2-35.5) g/dl RDW Std Deviation (35.1-43.9) fL Plt Count (163-337) K/mm3 MPV (9.4-12.3) fl Neut % (Auto) (34.0-67.9) % Lymph % (Auto) (21.8-53.1) % [place] % (Auto) (5.3-12.2) % Eos % (Auto) (0.8-7.0) Baso % (Auto) (0.1-1.2) % Neut # (Auto) (1.78-5.38) K/mm3 Lymph # (Auto) (1.32-3.57) K/mm3 [place] # (Auto) (0.30-0.82) K/mm3 Eos # (Auto) (0.04-0.54) K/mm3 Baso # (Auto) (0.01-0.08) K/mm3 Manual Slide Review Sodium (136-145) mEq/L Potassium (3.5-5.1) mEq/L Chloride (98-107) mEq/L Carbon Dioxide (21-32) mEq/L Anion Gap (5-15) BUN (7-18) mg/dL Creatinine (0.7-1.3) mg/dL Est Cr Clr Drug Dosing mL/min Estimated GFR (MDRD) (>60) mL/min BUN/Creatinine Ratio (14-18) Glucose (80-115) mg/dL POC Glucose 138 H 120 H 131 H (80-115) mg/dL Calcium (8.5-10.1) mg/dL Magnesium (1.8-2.4) mg/dl Total Bilirubin (0.2-1.0) mg/dL AST (15-37) U/L ALT (16-63) U/L Alkaline Phosphatase (46-116) U/L Total Protein (6.4-8.2) g/dl Albumin (3.4-5.0) g/dl Globulin gm/dL Albumin/Globulin Ratio (1-2) 07/07/18 07/07/18 07/07/18 Range/Units 05:53 06:20 06:20 WBC 6.65 (4.23-9.07) K/mm3 RBC 5.06 (4.63-6.08) M/mm3 Hgb 14.2 (13.7-17.5) gm/L Hct 43.9 (40.1-51.0) % MCV 86.8 (79.0-92.2) fl MCH 28.1 (25.7-32.2) pg MCHC 32.3 (32.2-35.5) g/dl RDW Std Deviation 39.9 (35.1-43.9) fL Plt Count 386 H (163-337) K/mm3 MPV 8.2 L (9.4-12.3) fl Neut % (Auto) 65.3 (34.0-67.9) % Lymph % (Auto) 20.9 L (21.8-53.1) % [place] % (Auto) 9.9 (5.3-12.2) % Eos % (Auto) 2.6 (0.8-7.0) Baso % (Auto) 0.2 (0.1-1.2) % Neut # (Auto) 4.35 (1.78-5.38) K/mm3 Lymph # (Auto) 1.39 (1.32-3.57) K/mm3 [place] # (Auto) 0.66 (0.30-0.82) K/mm3 Eos # (Auto) 0.17 (0.04-0.54) K/mm3 Baso # (Auto) 0.01 (0.01-0.08) K/mm3 Manual Slide Review Normal smear Sodium 133 L (136-145) mEq/L Potassium 4.0 (3.5-5.1) mEq/L Chloride 100 (98-107) mEq/L Carbon Dioxide 23 (21-32) mEq/L Anion Gap 14.0 (5-15) BUN 18 (7-18) mg/dL Creatinine 1.2 (0.7-1.3) mg/dL Est Cr Clr Drug Dosing 57.60 mL/min Estimated GFR (MDRD) > 60 (>60) mL/min BUN/Creatinine Ratio 15.0 (14-18) Glucose 128 H (80-115) mg/dL POC Glucose 119 H (80-115) mg/dL Calcium 8.8 (8.5-10.1) mg/dL Magnesium 2.3 (1.8-2.4) mg/dl Total Bilirubin 0.4 (0.2-1.0) mg/dL AST 95 H (15-37) U/L ALT 133 H (16-63) U/L Alkaline Phosphatase 81 (46-116) U/L Total Protein 7.6 (6.4-8.2) g/dl Albumin 3.0 L (3.4-5.0) g/dl Globulin 4.6 gm/dL Albumin/Globulin Ratio 0.7 L (1-2) Chris Results Last 24 Hours: Microbiology 06/29/18 17:35 Gram Stain - Final Appendix Anaerobic Culture - Final Escherichia Coli Stenotrophomonas Maltophilia Streptococcus Salivarius Bacteroides Fragilis Group Clostridium Species Eggerthella Lenta Prevotella Species Probable Fusobacterium Species Med Orders - Current: Current Medications Aspirin (Aspirin) 81 mg PO DAILY [facility] Last Admin: 07/06/18 10:23 Dose: 81 mg Enoxaparin Sodium (Lovenox) 40 mg SUBCUT Q24H [facility] Last Admin: 07/06/18 21:41 Dose: 40 mg Hydralazine HCl (Apresoline) 20 mg IVPUSH Q6H PRN PRN Reason: Hypertension Insulin Human Lispro (Humalog) 0 unit SUBCUT QIDACANDBED [facility]; Protocol Last Admin: 07/07/18 08:38 Dose: Not Given Levofloxacin (Levaquin) 750 mg PO Q24H [facility] Last Admin: 07/06/18 17:41 Dose: 750 mg Metformin HCl (Glucophage) 500 mg PO BIDMEALS [facility] Last Admin: 07/07/18 06:46 Dose: 500 mg Metronidazole (Flagyl) 500 mg PO Q8H [facility] Last Admin: 07/07/18 01:16 Dose: 500 mg Ondansetron HCl (Zofran) 4 mg IVPUSH Q6H PRN PRN Reason: Nausea/Vomiting Oxycodone/Acetaminophen (Percocet 325-5 Mg) 0 tab PO Q4H PRN PRN Reason: Pain Last Admin: 07/07/18 04:57 Dose: 1 tab Pantoprazole Sodium (Protonix) 40 mg PO ACBRK [facility] Last Admin: 07/07/18 06:46 Dose: 40 mg Discontinued Medications Acetaminophen (Tylenol) 600 mg RECTAL Q4H PRN PRN Reason: fever Last Admin: 06/30/18 17:12 Dose: 650 mg Al Hydroxide/Mg Hydroxide (Mag-Al Plus) 30 ml PO Q4H [facility] Stop: 07/03/18 11:31 Last Admin: 07/03/18 11:52 Dose: 30 ml Bisacodyl (Dulcolax) 10 mg RECTAL DAILY [facility] Last Admin: 07/06/18 12:10 Dose: Not Given Bupivacaine HCl (Marcaine 0.5%) Confirm Administered Dose 30 ml .ROUTE .STK-MED ONE Stop: 06/29/18 15:47 Last Admin: 06/29/18 17:05 Dose: 30 ml Ertapenem (Invanz) Confirm Administered Dose 1 gm .ROUTE .STK-MED ONE Stop: 06/29/18 17:00 Fentanyl (Sublimaze) Confirm Administered Dose 250 mcg .ROUTE .STK-MED ONE Stop: 06/29/18 15:44 Fentanyl (Sublimaze) Confirm Administered Dose 250 mcg .ROUTE .STK-MED ONE Stop: 06/29/18 18:08 Fentanyl (Sublimaze) 50 mcg IVPUSH Q5M PRN PRN Reason: Pain Hydromorphone HCl (Dilaudid) 0.5 mg IVPUSH ONETIME ONE Stop: 06/29/18 13:53 Last Admin: 06/29/18 14:18 Dose: 0.5 mg Hydromorphone HCl (Dilaudid) 0.5 mg IVPUSH ONETIME ONE Stop: 06/29/18 15:03 Last Admin: 06/29/18 15:52 Dose: 0.5 mg Hydromorphone HCl (Dilaudid) Confirm Administered Dose 0.5 mg .ROUTE .STK-MED ONE Stop: 06/29/18 17:39 Hydromorphone HCl (Dilaudid) Confirm Administered Dose 0.5 mg .ROUTE .STK-MED ONE Stop: 06/29/18 17:39 Hydromorphone HCl (Dilaudid) 0.5 mg IVPUSH ONETIME PRN PRN Reason: For pain Sodium Chloride (Normal Saline) 1,000 mls @ 250 mls/hr IV ONETIME ONE Stop: 06/29/18 17:51 Last Admin: 06/29/18 14:17 Dose: 250 mls/hr Lidocaine HCl (Xylocaine-Mpf 1%) Confirm Administered Dose 4 mls @ as directed .ROUTE .STK-MED ONE Stop: 06/29/18 15:44 Lactated Ringer's (Ringers, Lactated) Confirm Administered Dose 1,000 mls @ as directed .ROUTE .STK-MED ONE Stop: 06/29/18 17:11 Lactated Ringer's (Ringers, Lactated) Confirm Administered Dose 1,000 mls @ as directed .ROUTE .STK-MED ONE Stop: 06/29/18 17:32 Potassium Chloride/Dextrose/Sod Cl (D5 1/2 Ns W/ 20 Meq/L Kcl) 1,000 mls @ 125 mls/hr IV ASDIRECTED [facility] Last Admin: 07/03/18 07:38 Dose: 125 mls/hr Ertapenem 1 gm/ Sodium (Chloride) 100 mls @ 200 mls/hr IV Q24H [facility] Last Admin: 06/30/18 17:10 Dose: 200 mls/hr Sodium Chloride (Normal Saline) 1,000 mls @ 150 mls/hr IV ONETIME ONE Stop: 07/01/18 00:17 Last Admin: 06/30/18 19:45 Dose: Not Given Sodium Chloride (Normal Saline) 1,000 mls @ 999 mls/hr IV ONETIME ONE Stop: 06/30/18 19:23 Last Admin: 06/30/18 18:45 Dose: 999 mls/hr Levofloxacin/Dextrose 750 mg/ (Premix) 150 mls @ 100 mls/hr IV DAILY@1700 [facility] Last Admin: 07/05/18 16:14 Dose: 100 mls/hr Metronidazole 500 mg/ Premix 100 mls @ 200 mls/hr IV Q8H [facility] Last Admin: 07/06/18 12:08 Dose: 200 mls/hr Potassium Chloride/Sodium Chloride (Normal Saline With 20 Meq Kcl) 1,000 mls @ 75 mls/hr IV ASDIRECTED [facility] Last Admin: 07/04/18 16:37 Dose: 75 mls/hr Insulin Human Lispro (Humalog) 0 unit SUBCUT Q6H [facility]; Protocol Last Admin: 06/30/18 07:50 Dose: Not Given Insulin Human Lispro (Humalog) 0 unit SUBCUT Q6H [facility]; Protocol Last Admin: 07/03/18 12:03 Dose: Not Given Midazolam HCl (Versed 1 Mg/Ml) Confirm Administered Dose 2 mg .ROUTE .STK-MED ONE Stop: 06/29/18 15:44 Morphine Sulfate (Morphine) 4 mg IVPUSH Q1H PRN PRN Reason: Pain (severe 7-10) Stop: 06/30/18 21:01 Last Admin: 06/30/18 19:37 Dose: 4 mg Morphine Sulfate (Morphine) 4 mg IVPUSH Q1H PRN PRN Reason: Pain Last Admin: 07/03/18 14:33 Dose: 4 mg Ondansetron HCl (Zofran) 4 mg IVPUSH ONETIME ONE Stop: 06/29/18 13:53 Last Admin: 06/29/18 14:22 Dose: 4 mg Ondansetron HCl (Zofran) Confirm Administered Dose 4 mg .ROUTE .STK-MED ONE Stop: 06/29/18 15:43 Pantoprazole Sodium (Protonix Iv) 40 mg IVPUSH DAILY [facility] Last Admin: 07/05/18 08:41 Dose: 40 mg Phenylephrine HCl (Phenylephrine In Ns 100 Mcg/Ml) Confirm Administered Dose 1 mg .ROUTE .STK-MED ONE Stop: 06/29/18 17:12 Propofol (Diprivan 20 Ml) Confirm Administered Dose 200 mg .ROUTE .STK-MED ONE Stop: 06/29/18 15:44 Rocuronium [place] (Zemuron) Confirm Administered Dose 50 mg .ROUTE .STK-MED ONE Stop: 06/29/18 15:43 Rocuronium [place] (Zemuron) Confirm Administered Dose 50 mg .ROUTE .STK-MED ONE Stop: 06/29/18 17:38 Simvastatin (Zocor) 20 mg PO BEDTIME [facility] Last Admin: 07/05/18 21:43 Dose: 20 mg - Exam General: Alert, Oriented HEENT: Pupils Equal, EOMI Neck: Supple Lungs: Normal Respiratory Effort GI/Abdominal Exam: Soft, Tender (mild tenderness around incisions) Skin: Warm, Dry, Intact Wound/Incisions: Healing Well (granulation tissue in wound), Dressing Dry and Intact Consult PN Assessment/Plan (1) Appendicitis SNOMED Code(s): 02514122 Code(s): K37 - UNSPECIFIED APPENDICITIS Priority: High Current Visit: Yes Qualifiers: Appendicitis type: acute appendicitis (2) Rupture of appendix SNOMED Code(s): 50403121 Code(s): K35.2 - ACUTE APPENDICITIS WITH GENERALIZED PERITONIT * DO NOT USE * Priority: High Current Visit: Yes Problem List Initiated/Reviewed/Updated: Yes My Orders Last 24 Hours: My Active Orders 07/06/18 16:26 Wound Care [RC] Q12H 07/06/18 17:00 levoFLOXacin [Levaquin] 750 mg PO Q24H metroNIDAZOLE [Flagyl] 500 mg PO Q8H 07/06/18 19:21 Communication Order [RC] 07/08/18 05:11 CBC WITH AUTO DIFF [HEME] AM 07/09/18 05:11 CBC WITH AUTO DIFF [HEME] AM 07/10/18 05:11 CBC WITH AUTO DIFF [HEME] AM Plan: 62 y/o male now POD 8 s/p appendectomy for ruptured appendicitis. Second drain removed today. - continue Abx for 10 days total, will send home with PO to finish course - Dressing changes BID wet-to-dry to midline wound, will come later to receive education - regular diet - No lifting more than 20 lbs until cleared by the surgeon Pt to follow up in my office in 1 week Aracely Reyes MD General surgery
--- NOTE | 2018-07-07 10:16 | PCM.DCSUM1 ---
Discharge Summary - Hospital Course Free Text/Narrative:: Pt was admitted to the hospital with ruptured appendicitis and abscess. He was taken to the OR where he underwent appendectomy and drainage of the abscess with placement of NATALYA drains in the abdomen. He gradually had return of bowel function and the drain outputs were monitored. He was diagnosed with diabetes and hyperlipidemia on this hospital admission. He was kept on IV abx and had initiation of metformin and medication for hyperlipidemia. However, he had elevation in the liver enzymes and the statin medication was stopped.. His drains were removed on POD 7 and 8, and he was tolerating regular diet with return of bowel function. Abx were transitioned to PO and family was educated on dressing changes. The patient was discharged home with follow up with PCP and the surgeon. Diagnosis: Stroke: No - Discharge Data Discharge Date: 07/07/18 Discharge Disposition: Home, Self-Care 01 Condition: Good - Discharge Diagnosis/Problem(s) (1) Appendicitis SNOMED Code(s): 03071273 ICD Code: K37 - UNSPECIFIED APPENDICITIS Status: Acute Priority: High Current Visit: Yes Qualifiers: Appendicitis type: acute appendicitis Appendicitis perforation presence: with perforation Appendicitis abscess presence: with abscess (2) Rupture of appendix SNOMED Code(s): 87560430 ICD Code: K35.2 - ACUTE APPENDICITIS WITH GENERALIZED PERITONIT * DO NOT USE * Status: Acute Priority: High Current Visit: Yes - Patient Summary/Data Consults: Consultations 06/29/18 20:56 Respiratory Care Assess and Treatment [CONS] Routine 07/02/18 10:47 Consult to Physician [CONS] Routine 07/02/18 11:03 Consult to Quality Facilitator [Consult to Diabetic Nurse Specialist] [CONS] Routine 07/02/18 15:49 Consult to [employer] [CONS] Routine - Patient Instructions Diet: Usual Diet as Tolerated, No Alcoholic Beverages Activity: As Tolerated, No Lifting Over 20 Pounds (until cleared by the surgeon) , No Strenuous Activities (until cleared by the surgeon) Showering/Bathing: May Shower (after 48 hours), No Tub Bathing/Swimming (until your wound is closed) Wound/Incision Care: Keep Operative Site/Wound Site Clean and Dry Notify Provider of: Fever, Increased Pain, Swelling and Redness, Drainage, Nausea and/or Vomiting - Discharge Plan *PRESCRIPTION DRUG MONITORING PROGRAM REVIEWED*: Not Applicable *COPY OF PRESCRIPTION DRUG MONITORING REPORT IN PATIENT MAVIS: Not Applicable Prescriptions/Med Rec: Acetaminophen/oxyCODONE [Percocet 325-5 MG] 1 tab PO Q4H PRN 14 Days #40 tablet PRN Reason: Pain Aspirin 81 mg PO DAILY #30 tab.chew Levofloxacin 750 mg PO DAILY 3 Days #3 tablet metFORMIN [Glucophage] 500 mg PO BIDMEALS #60 tablet metroNIDAZOLE [Flagyl] 500 mg PO Q8H 3 Days #9 tablet Sennosides/Docusate Sodium [Senokot-S Tablet] 1 each PO DAILY #30 tablet Home Medications: Home Meds Acetaminophen/oxyCODONE [Percocet 325-5 MG] 1 tab PO Q4H PRN 14 Days #40 tablet 07/07/18 [Rx] Aspirin 81 mg PO DAILY #30 tab.chew 07/07/18 [Rx] Levofloxacin 750 mg PO DAILY 3 Days #3 tablet 07/07/18 [Rx] Sennosides/Docusate Sodium [Senokot-S Tablet] 1 each PO DAILY #30 tablet [Rx] metFORMIN [Glucophage] 500 mg PO BIDMEALS #60 tablet 07/07/18 [Rx] metroNIDAZOLE [Flagyl] 500 mg PO Q8H 3 Days #9 tablet 07/07/18 [Rx] Referrals: Aracely Reyes MD [Physician] - (Follow up in one week) Bing Johnston MD [Physician] - 07/11/18 2:30 pm (Hospital follow-up appointment and to establish care. Please check in at 2:00pm.) Judith Nunez RN [Registered Nurse] - (adoption coordinator appointment. She will call you to schedule this appointment. Bring your glucometer with you to this appointment.) - Patient Data Vitals - Most Recent: Last Vital Signs Temp 36.5 C 07/07/18 07:42 Pulse 81 07/07/18 07:44 Resp 16 07/07/18 07:42 BP 158/87 H 07/07/18 07:44 Pulse Ox 98 07/07/18 07:44 Weight - Most Recent: 80.104 kg I&O - Last 24 hours: Intake & Output 07/06/18 07/07/18 07/07/18 22:59 06:59 14:59 Intake Total 2180 800 0 Output Total 1035 50 Balance 1145 750 0 Lab Results - Last 24 hrs: Laboratory Results - last 24 hr 07/06/18 07/06/18 07/06/18 Range/Units 12:06 17:30 20:31 WBC (4.23-9.07) K/mm3 RBC (4.63-6.08) M/mm3 Hgb (13.7-17.5) gm/L Hct (40.1-51.0) % MCV (79.0-92.2) fl MCH (25.7-32.2) pg MCHC (32.2-35.5) g/dl RDW Std Deviation (35.1-43.9) fL Plt Count (163-337) K/mm3 MPV (9.4-12.3) fl Neut % (Auto) (34.0-67.9) % Lymph % (Auto) (21.8-53.1) % [place] % (Auto) (5.3-12.2) % Eos % (Auto) (0.8-7.0) Baso % (Auto) (0.1-1.2) % Neut # (Auto) (1.78-5.38) K/mm3 Lymph # (Auto) (1.32-3.57) K/mm3 [place] # (Auto) (0.30-0.82) K/mm3 Eos # (Auto) (0.04-0.54) K/mm3 Baso # (Auto) (0.01-0.08) K/mm3 Manual Slide Review Sodium (136-145) mEq/L Potassium (3.5-5.1) mEq/L Chloride (98-107) mEq/L Carbon Dioxide (21-32) mEq/L Anion Gap (5-15) BUN (7-18) mg/dL Creatinine (0.7-1.3) mg/dL Est Cr Clr Drug Dosing mL/min Estimated GFR (MDRD) (>60) mL/min BUN/Creatinine Ratio (14-18) Glucose (80-115) mg/dL POC Glucose 138 H 120 H 131 H (80-115) mg/dL Calcium (8.5-10.1) mg/dL Magnesium (1.8-2.4) mg/dl Total Bilirubin (0.2-1.0) mg/dL AST (15-37) U/L ALT (16-63) U/L Alkaline Phosphatase (46-116) U/L Total Protein (6.4-8.2) g/dl Albumin (3.4-5.0) g/dl Globulin gm/dL Albumin/Globulin Ratio (1-2) 07/07/18 07/07/18 07/07/18 Range/Units 05:53 06:20 06:20 WBC 6.65 (4.23-9.07) K/mm3 RBC 5.06 (4.63-6.08) M/mm3 Hgb 14.2 (13.7-17.5) gm/L Hct 43.9 (40.1-51.0) % MCV 86.8 (79.0-92.2) fl MCH 28.1 (25.7-32.2) pg MCHC 32.3 (32.2-35.5) g/dl RDW Std Deviation 39.9 (35.1-43.9) fL Plt Count 386 H (163-337) K/mm3 MPV 8.2 L (9.4-12.3) fl Neut % (Auto) 65.3 (34.0-67.9) % Lymph % (Auto) 20.9 L (21.8-53.1) % [place] % (Auto) 9.9 (5.3-12.2) % Eos % (Auto) 2.6 (0.8-7.0) Baso % (Auto) 0.2 (0.1-1.2) % Neut # (Auto) 4.35 (1.78-5.38) K/mm3 Lymph # (Auto) 1.39 (1.32-3.57) K/mm3 [place] # (Auto) 0.66 (0.30-0.82) K/mm3 Eos # (Auto) 0.17 (0.04-0.54) K/mm3 Baso # (Auto) 0.01 (0.01-0.08) K/mm3 Manual Slide Review Normal smear Sodium 133 L (136-145) mEq/L Potassium 4.0 (3.5-5.1) mEq/L Chloride 100 (98-107) mEq/L Carbon Dioxide 23 (21-32) mEq/L Anion Gap 14.0 (5-15) BUN 18 (7-18) mg/dL Creatinine 1.2 (0.7-1.3) mg/dL Est Cr Clr Drug Dosing 57.60 mL/min Estimated GFR (MDRD) > 60 (>60) mL/min BUN/Creatinine Ratio 15.0 (14-18) Glucose 128 H (80-115) mg/dL POC Glucose 119 H (80-115) mg/dL Calcium 8.8 (8.5-10.1) mg/dL Magnesium 2.3 (1.8-2.4) mg/dl Total Bilirubin 0.4 (0.2-1.0) mg/dL AST 95 H (15-37) U/L ALT 133 H (16-63) U/L Alkaline Phosphatase 81 (46-116) U/L Total Protein 7.6 (6.4-8.2) g/dl Albumin 3.0 L (3.4-5.0) g/dl Globulin 4.6 gm/dL Albumin/Globulin Ratio 0.7 L (1-2) JONNA Results - Last 24 hrs: Microbiology 06/29/18 17:35 Gram Stain - Final Appendix Anaerobic Culture - Final Escherichia Coli Stenotrophomonas Maltophilia Streptococcus Salivarius Bacteroides Fragilis Group Clostridium Species Eggerthella Lenta Prevotella Species Probable Fusobacterium Species Med Orders - Current: Current Medications Aspirin (Aspirin) 81 mg PO DAILY [facility] Last Admin: 07/06/18 10:23 Dose: 81 mg Enoxaparin Sodium (Lovenox) 40 mg SUBCUT Q24H [facility] Last Admin: 07/06/18 21:41 Dose: 40 mg Hydralazine HCl (Apresoline) 20 mg IVPUSH Q6H PRN PRN Reason: Hypertension Insulin Human Lispro (Humalog) 0 unit SUBCUT QIDACANDBED [facility]; Protocol Last Admin: 07/07/18 08:38 Dose: Not Given Levofloxacin (Levaquin) 750 mg PO Q24H [facility] Last Admin: 07/06/18 17:41 Dose: 750 mg Metformin HCl (Glucophage) 500 mg PO BIDMEALS [facility] Last Admin: 07/07/18 06:46 Dose: 500 mg Metronidazole (Flagyl) 500 mg PO Q8H [facility] Last Admin: 07/07/18 01:16 Dose: 500 mg Ondansetron HCl (Zofran) 4 mg IVPUSH Q6H PRN PRN Reason: Nausea/Vomiting Oxycodone/Acetaminophen (Percocet 325-5 Mg) 0 tab PO Q4H PRN PRN Reason: Pain Last Admin: 07/07/18 04:57 Dose: 1 tab Pantoprazole Sodium (Protonix) 40 mg PO ACBRK [facility] Last Admin: 07/07/18 06:46 Dose: 40 mg Discontinued Medications Acetaminophen (Tylenol) 600 mg RECTAL Q4H PRN PRN Reason: fever Last Admin: 06/30/18 17:12 Dose: 650 mg Al Hydroxide/Mg Hydroxide (Mag-Al Plus) 30 ml PO Q4H [facility] Stop: 07/03/18 11:31 Last Admin: 07/03/18 11:52 Dose: 30 ml Bisacodyl (Dulcolax) 10 mg RECTAL DAILY [facility] Last Admin: 07/06/18 12:10 Dose: Not Given Bupivacaine HCl (Marcaine 0.5%) Confirm Administered Dose 30 ml .ROUTE .STK-MED ONE Stop: 06/29/18 15:47 Last Admin: 06/29/18 17:05 Dose: 30 ml Ertapenem (Invanz) Confirm Administered Dose 1 gm .ROUTE .STK-MED ONE Stop: 06/29/18 17:00 Fentanyl (Sublimaze) Confirm Administered Dose 250 mcg .ROUTE .STK-MED ONE Stop: 06/29/18 15:44 Fentanyl (Sublimaze) Confirm Administered Dose 250 mcg .ROUTE .STK-MED ONE Stop: 06/29/18 18:08 Fentanyl (Sublimaze) 50 mcg IVPUSH Q5M PRN PRN Reason: Pain Hydromorphone HCl (Dilaudid) 0.5 mg IVPUSH ONETIME ONE Stop: 06/29/18 13:53 Last Admin: 06/29/18 14:18 Dose: 0.5 mg Hydromorphone HCl (Dilaudid) 0.5 mg IVPUSH ONETIME ONE Stop: 06/29/18 15:03 Last Admin: 06/29/18 15:52 Dose: 0.5 mg Hydromorphone HCl (Dilaudid) Confirm Administered Dose 0.5 mg .ROUTE .STK-MED ONE Stop: 06/29/18 17:39 Hydromorphone HCl (Dilaudid) Confirm Administered Dose 0.5 mg .ROUTE .STK-MED ONE Stop: 06/29/18 17:39 Hydromorphone HCl (Dilaudid) 0.5 mg IVPUSH ONETIME PRN PRN Reason: For pain Sodium Chloride (Normal Saline) 1,000 mls @ 250 mls/hr IV ONETIME ONE Stop: 06/29/18 17:51 Last Admin: 06/29/18 14:17 Dose: 250 mls/hr Lidocaine HCl (Xylocaine-Mpf 1%) Confirm Administered Dose 4 mls @ as directed .ROUTE .STK-MED ONE Stop: 06/29/18 15:44 Lactated Ringer's (Ringers, Lactated) Confirm Administered Dose 1,000 mls @ as directed .ROUTE .STK-MED ONE Stop: 06/29/18 17:11 Lactated Ringer's (Ringers, Lactated) Confirm Administered Dose 1,000 mls @ as directed .ROUTE .STK-MED ONE Stop: 06/29/18 17:32 Potassium Chloride/Dextrose/Sod Cl (D5 1/2 Ns W/ 20 Meq/L Kcl) 1,000 mls @ 125 mls/hr IV ASDIRECTED [facility] Last Admin: 07/03/18 07:38 Dose: 125 mls/hr Ertapenem 1 gm/ Sodium (Chloride) 100 mls @ 200 mls/hr IV Q24H [facility] Last Admin: 06/30/18 17:10 Dose: 200 mls/hr Sodium Chloride (Normal Saline) 1,000 mls @ 150 mls/hr IV ONETIME ONE Stop: 07/01/18 00:17 Last Admin: 06/30/18 19:45 Dose: Not Given Sodium Chloride (Normal Saline) 1,000 mls @ 999 mls/hr IV ONETIME ONE Stop: 06/30/18 19:23 Last Admin: 06/30/18 18:45 Dose: 999 mls/hr Levofloxacin/Dextrose 750 mg/ (Premix) 150 mls @ 100 mls/hr IV DAILY@1700 [facility] Last Admin: 07/05/18 16:14 Dose: 100 mls/hr Metronidazole 500 mg/ Premix 100 mls @ 200 mls/hr IV Q8H [facility] Last Admin: 07/06/18 12:08 Dose: 200 mls/hr Potassium Chloride/Sodium Chloride (Normal Saline With 20 Meq Kcl) 1,000 mls @ 75 mls/hr IV ASDIRECTED [facility] Last Admin: 07/04/18 16:37 Dose: 75 mls/hr Insulin Human Lispro (Humalog) 0 unit SUBCUT Q6H [facility]; Protocol Last Admin: 06/30/18 07:50 Dose: Not Given Insulin Human Lispro (Humalog) 0 unit SUBCUT Q6H [facility]; Protocol Last Admin: 07/03/18 12:03 Dose: Not Given Midazolam HCl (Versed 1 Mg/Ml) Confirm Administered Dose 2 mg .ROUTE .STK-MED ONE Stop: 06/29/18 15:44 Morphine Sulfate (Morphine) 4 mg IVPUSH Q1H PRN PRN Reason: Pain (severe 7-10) Stop: 06/30/18 21:01 Last Admin: 06/30/18 19:37 Dose: 4 mg Morphine Sulfate (Morphine) 4 mg IVPUSH Q1H PRN PRN Reason: Pain Last Admin: 07/03/18 14:33 Dose: 4 mg Ondansetron HCl (Zofran) 4 mg IVPUSH ONETIME ONE Stop: 06/29/18 13:53 Last Admin: 06/29/18 14:22 Dose: 4 mg Ondansetron HCl (Zofran) Confirm Administered Dose 4 mg .ROUTE .STK-MED ONE Stop: 06/29/18 15:43 Pantoprazole Sodium (Protonix Iv) 40 mg IVPUSH DAILY [facility] Last Admin: 07/05/18 08:41 Dose: 40 mg Phenylephrine HCl (Phenylephrine In Ns 100 Mcg/Ml) Confirm Administered Dose 1 mg .ROUTE .STK-MED ONE Stop: 06/29/18 17:12 Propofol (Diprivan 20 Ml) Confirm Administered Dose 200 mg .ROUTE .STK-MED ONE Stop: 06/29/18 15:44 Rocuronium [place] (Zemuron) Confirm Administered Dose 50 mg .ROUTE .STK-MED ONE Stop: 06/29/18 15:43 Rocuronium [place] (Zemuron) Confirm Administered Dose 50 mg .ROUTE .STK-MED ONE Stop: 06/29/18 17:38 Simvastatin (Zocor) 20 mg PO BEDTIME [facility] Last Admin: 07/05/18 21:43 Dose: 20 mg
[2018-07-07] MEDS: Aspirin 81 MG Tab.Chew PO SCH (10:23)
--- NOTE | 2018-07-07 11:05 | PCM.CONSN ---
- General Info Date of Service: 07/07/18 Admission Dx/Problem (Free Text): Appendicitis Subjective Update: Pt reports pain is controlled. Tolerating diet. He had a bowel movement this am. No nausea. Functional Status: Reports: Pain Controlled, Tolerating Diet, Ambulating, Urinating. Denies: New Symptoms Pain Score: 2 - Review of Systems General: Denies: Fever, Weakness, Fatigue, Malaise, Chills HEENT: Reports: No Symptoms Pulmonary: Denies: Shortness of Breath, Pleuritic Chest Pain, Cough Cardiovascular: Denies: Chest Pain, Dyspnea on Exertion Gastrointestinal: Reports: Abdominal Pain. Denies: Nausea, Vomiting Genitourinary: Reports: No Symptoms Musculoskeletal: Reports: No Symptoms Skin: Denies: Jaundice, Pallor, Bruising Neurological: Denies: Confusion, Difficulty Walking, Weakness, Gait Disturbance Psychiatric: Denies: Confusion, Depression, Anxiety, Agitation, Hallucinations Systems Review Comment:: No overnight or acute issues. He rested well and seems doing relatively well. His glucose remains controlled. He has no complaints this AM. - Patient Data Vitals - Most Recent: Last Vital Signs Temp 36.5 C 07/07/18 07:42 Pulse 81 07/07/18 07:44 Resp 16 07/07/18 07:42 BP 141/86 H 07/07/18 10:20 Pulse Ox 98 07/07/18 07:44 Weight - Most Recent: 80.104 kg I&O - Last 24 Hours: Intake & Output 07/06/18 07/07/18 07/07/18 22:59 06:59 14:59 Intake Total 2180 800 0 Output Total 1035 50 Balance 1145 750 0 Lab Results Last 24 Hours: Laboratory Results - last 24 hr 07/06/18 07/06/18 07/06/18 Range/Units 12:06 17:30 20:31 WBC (4.23-9.07) K/mm3 RBC (4.63-6.08) M/mm3 Hgb (13.7-17.5) gm/L Hct (40.1-51.0) % MCV (79.0-92.2) fl MCH (25.7-32.2) pg MCHC (32.2-35.5) g/dl RDW Std Deviation (35.1-43.9) fL Plt Count (163-337) K/mm3 MPV (9.4-12.3) fl Neut % (Auto) (34.0-67.9) % Lymph % (Auto) (21.8-53.1) % [place] % (Auto) (5.3-12.2) % Eos % (Auto) (0.8-7.0) Baso % (Auto) (0.1-1.2) % Neut # (Auto) (1.78-5.38) K/mm3 Lymph # (Auto) (1.32-3.57) K/mm3 [place] # (Auto) (0.30-0.82) K/mm3 Eos # (Auto) (0.04-0.54) K/mm3 Baso # (Auto) (0.01-0.08) K/mm3 Manual Slide Review Sodium (136-145) mEq/L Potassium (3.5-5.1) mEq/L Chloride (98-107) mEq/L Carbon Dioxide (21-32) mEq/L Anion Gap (5-15) BUN (7-18) mg/dL Creatinine (0.7-1.3) mg/dL Est Cr Clr Drug Dosing mL/min Estimated GFR (MDRD) (>60) mL/min BUN/Creatinine Ratio (14-18) Glucose (80-115) mg/dL POC Glucose 138 H 120 H 131 H (80-115) mg/dL Calcium (8.5-10.1) mg/dL Magnesium (1.8-2.4) mg/dl Total Bilirubin (0.2-1.0) mg/dL AST (15-37) U/L ALT (16-63) U/L Alkaline Phosphatase (46-116) U/L Total Protein (6.4-8.2) g/dl Albumin (3.4-5.0) g/dl Globulin gm/dL Albumin/Globulin Ratio (1-2) 07/07/18 07/07/18 07/07/18 Range/Units 05:53 06:20 06:20 WBC 6.65 (4.23-9.07) K/mm3 RBC 5.06 (4.63-6.08) M/mm3 Hgb 14.2 (13.7-17.5) gm/L Hct 43.9 (40.1-51.0) % MCV 86.8 (79.0-92.2) fl MCH 28.1 (25.7-32.2) pg MCHC 32.3 (32.2-35.5) g/dl RDW Std Deviation 39.9 (35.1-43.9) fL Plt Count 386 H (163-337) K/mm3 MPV 8.2 L (9.4-12.3) fl Neut % (Auto) 65.3 (34.0-67.9) % Lymph % (Auto) 20.9 L (21.8-53.1) % [place] % (Auto) 9.9 (5.3-12.2) % Eos % (Auto) 2.6 (0.8-7.0) Baso % (Auto) 0.2 (0.1-1.2) % Neut # (Auto) 4.35 (1.78-5.38) K/mm3 Lymph # (Auto) 1.39 (1.32-3.57) K/mm3 [place] # (Auto) 0.66 (0.30-0.82) K/mm3 Eos # (Auto) 0.17 (0.04-0.54) K/mm3 Baso # (Auto) 0.01 (0.01-0.08) K/mm3 Manual Slide Review Normal smear Sodium 133 L (136-145) mEq/L Potassium 4.0 (3.5-5.1) mEq/L Chloride 100 (98-107) mEq/L Carbon Dioxide 23 (21-32) mEq/L Anion Gap 14.0 (5-15) BUN 18 (7-18) mg/dL Creatinine 1.2 (0.7-1.3) mg/dL Est Cr Clr Drug Dosing 57.60 mL/min Estimated GFR (MDRD) > 60 (>60) mL/min BUN/Creatinine Ratio 15.0 (14-18) Glucose 128 H (80-115) mg/dL POC Glucose 119 H (80-115) mg/dL Calcium 8.8 (8.5-10.1) mg/dL Magnesium 2.3 (1.8-2.4) mg/dl Total Bilirubin 0.4 (0.2-1.0) mg/dL AST 95 H (15-37) U/L ALT 133 H (16-63) U/L Alkaline Phosphatase 81 (46-116) U/L Total Protein 7.6 (6.4-8.2) g/dl Albumin 3.0 L (3.4-5.0) g/dl Globulin 4.6 gm/dL Albumin/Globulin Ratio 0.7 L (1-2) Chris Results Last 24 Hours: Microbiology 06/29/18 17:35 Gram Stain - Final Appendix Anaerobic Culture - Final Escherichia Coli Stenotrophomonas Maltophilia Streptococcus Salivarius Bacteroides Fragilis Group Clostridium Species Eggerthella Lenta Prevotella Species Probable Fusobacterium Species Med Orders - Current: Current Medications Aspirin (Aspirin) 81 mg PO DAILY [facility] Last Admin: 07/07/18 10:23 Dose: 81 mg Enoxaparin Sodium (Lovenox) 40 mg SUBCUT Q24H [facility] Last Admin: 07/06/18 21:41 Dose: 40 mg Hydralazine HCl (Apresoline) 20 mg IVPUSH Q6H PRN PRN Reason: Hypertension Insulin Human Lispro (Humalog) 0 unit SUBCUT QIDACANDBED [facility]; Protocol Last Admin: 07/07/18 08:38 Dose: Not Given Levofloxacin (Levaquin) 750 mg PO Q24H [facility] Last Admin: 07/06/18 17:41 Dose: 750 mg Metformin HCl (Glucophage) 500 mg PO BIDMEALS [facility] Last Admin: 07/07/18 06:46 Dose: 500 mg Metronidazole (Flagyl) 500 mg PO Q8H [facility] Last Admin: 07/07/18 10:23 Dose: 500 mg Ondansetron HCl (Zofran) 4 mg IVPUSH Q6H PRN PRN Reason: Nausea/Vomiting Oxycodone/Acetaminophen (Percocet 325-5 Mg) 0 tab PO Q4H PRN PRN Reason: Pain Last Admin: 07/07/18 04:57 Dose: 1 tab Pantoprazole Sodium (Protonix) 40 mg PO ACBRK [facility] Last Admin: 07/07/18 06:46 Dose: 40 mg Discontinued Medications Acetaminophen (Tylenol) 600 mg RECTAL Q4H PRN PRN Reason: fever Last Admin: 06/30/18 17:12 Dose: 650 mg Al Hydroxide/Mg Hydroxide (Mag-Al Plus) 30 ml PO Q4H [facility] Stop: 07/03/18 11:31 Last Admin: 07/03/18 11:52 Dose: 30 ml Bisacodyl (Dulcolax) 10 mg RECTAL DAILY [facility] Last Admin: 07/06/18 12:10 Dose: Not Given Bupivacaine HCl (Marcaine 0.5%) Confirm Administered Dose 30 ml .ROUTE .STK-MED ONE Stop: 06/29/18 15:47 Last Admin: 06/29/18 17:05 Dose: 30 ml Ertapenem (Invanz) Confirm Administered Dose 1 gm .ROUTE .STK-MED ONE Stop: 06/29/18 17:00 Fentanyl (Sublimaze) Confirm Administered Dose 250 mcg .ROUTE .STK-MED ONE Stop: 06/29/18 15:44 Fentanyl (Sublimaze) Confirm Administered Dose 250 mcg .ROUTE .STK-MED ONE Stop: 06/29/18 18:08 Fentanyl (Sublimaze) 50 mcg IVPUSH Q5M PRN PRN Reason: Pain Hydromorphone HCl (Dilaudid) 0.5 mg IVPUSH ONETIME ONE Stop: 06/29/18 13:53 Last Admin: 06/29/18 14:18 Dose: 0.5 mg Hydromorphone HCl (Dilaudid) 0.5 mg IVPUSH ONETIME ONE Stop: 06/29/18 15:03 Last Admin: 06/29/18 15:52 Dose: 0.5 mg Hydromorphone HCl (Dilaudid) Confirm Administered Dose 0.5 mg .ROUTE .STK-MED ONE Stop: 06/29/18 17:39 Hydromorphone HCl (Dilaudid) Confirm Administered Dose 0.5 mg .ROUTE .STK-MED ONE Stop: 06/29/18 17:39 Hydromorphone HCl (Dilaudid) 0.5 mg IVPUSH ONETIME PRN PRN Reason: For pain Sodium Chloride (Normal Saline) 1,000 mls @ 250 mls/hr IV ONETIME ONE Stop: 06/29/18 17:51 Last Admin: 06/29/18 14:17 Dose: 250 mls/hr Lidocaine HCl (Xylocaine-Mpf 1%) Confirm Administered Dose 4 mls @ as directed .ROUTE .STK-MED ONE Stop: 06/29/18 15:44 Lactated Ringer's (Ringers, Lactated) Confirm Administered Dose 1,000 mls @ as directed .ROUTE .STK-MED ONE Stop: 06/29/18 17:11 Lactated Ringer's (Ringers, Lactated) Confirm Administered Dose 1,000 mls @ as directed .ROUTE .K-MED ONE Stop: 06/29/18 17:32 Potassium Chloride/Dextrose/Sod Cl (D5 1/2 Ns W/ 20 Meq/L Kcl) 1,000 mls @ 125 mls/hr IV ASDIRECTED [facility] Last Admin: 07/03/18 07:38 Dose: 125 mls/hr Ertapenem 1 gm/ Sodium (Chloride) 100 mls @ 200 mls/hr IV Q24H [facility] Last Admin: 06/30/18 17:10 Dose: 200 mls/hr Sodium Chloride (Normal Saline) 1,000 mls @ 150 mls/hr IV ONETIME ONE Stop: 07/01/18 00:17 Last Admin: 06/30/18 19:45 Dose: Not Given Sodium Chloride (Normal Saline) 1,000 mls @ 999 mls/hr IV ONETIME ONE Stop: 06/30/18 19:23 Last Admin: 06/30/18 18:45 Dose: 999 mls/hr Levofloxacin/Dextrose 750 mg/ (Premix) 150 mls @ 100 mls/hr IV DAILY@1700 [facility] Last Admin: 07/05/18 16:14 Dose: 100 mls/hr Metronidazole 500 mg/ Premix 100 mls @ 200 mls/hr IV Q8H [facility] Last Admin: 07/06/18 12:08 Dose: 200 mls/hr Potassium Chloride/Sodium Chloride (Normal Saline With 20 Meq Kcl) 1,000 mls @ 75 mls/hr IV ASDIRECTED [facility] Last Admin: 07/04/18 16:37 Dose: 75 mls/hr Insulin Human Lispro (Humalog) 0 unit SUBCUT Q6H [facility]; Protocol Last Admin: 06/30/18 07:50 Dose: Not Given Insulin Human Lispro (Humalog) 0 unit SUBCUT Q6H [facility]; Protocol Last Admin: 07/03/18 12:03 Dose: Not Given Midazolam HCl (Versed 1 Mg/Ml) Confirm Administered Dose 2 mg .ROUTE .STK-MED ONE Stop: 06/29/18 15:44 Morphine Sulfate (Morphine) 4 mg IVPUSH Q1H PRN PRN Reason: Pain (severe 7-10) Stop: 06/30/18 21:01 Last Admin: 06/30/18 19:37 Dose: 4 mg Morphine Sulfate (Morphine) 4 mg IVPUSH Q1H PRN PRN Reason: Pain Last Admin: 07/03/18 14:33 Dose: 4 mg Ondansetron HCl (Zofran) 4 mg IVPUSH ONETIME ONE Stop: 06/29/18 13:53 Last Admin: 06/29/18 14:22 Dose: 4 mg Ondansetron HCl (Zofran) Confirm Administered Dose 4 mg .ROUTE .STK-MED ONE Stop: 06/29/18 15:43 Pantoprazole Sodium (Protonix Iv) 40 mg IVPUSH DAILY [facility] Last Admin: 07/05/18 08:41 Dose: 40 mg Phenylephrine HCl (Phenylephrine In Ns 100 Mcg/Ml) Confirm Administered Dose 1 mg .ROUTE .STK-MED ONE Stop: 06/29/18 17:12 Propofol (Diprivan 20 Ml) Confirm Administered Dose 200 mg .ROUTE .STK-MED ONE Stop: 06/29/18 15:44 Rocuronium [place] (Zemuron) Confirm Administered Dose 50 mg .ROUTE .STK-MED ONE Stop: 06/29/18 15:43 Rocuronium [place] (Zemuron) Confirm Administered Dose 50 mg .ROUTE .STK-MED ONE Stop: 06/29/18 17:38 Simvastatin (Zocor) 20 mg PO BEDTIME [facility] Last Admin: 07/05/18 21:43 Dose: 20 mg - Exam General: Alert, Oriented, Cooperative, No Acute Distress HEENT: Pupils Equal, Pupils Reactive, EOMI, Mucous Membr. Moist/Point Comfort Neck: Supple Lungs: Clear to Auscultation, Normal Respiratory Effort Cardiovascular: Regular Rate, Regular Rhythm GI/Abdominal Exam: Normal Bowel Sounds, Soft, No Distention, No Mass, Other ( woound dressings noted) (Male) Exam: No Hernia, Deferred Back Exam: Normal Inspection, Decreased Range of Motion Extremities: Normal Inspection, Normal Range of Motion, Non-Tender, No Pedal Edema, Normal Capillary Refill Skin: Warm, Dry, Intact Neurological: No New Focal Deficit, Normal Gait Psy/Mental Status: Alert, Normal Affect, Normal Mood Consult PN Assessment/Plan POD#: 8 (1) Appendicitis SNOMED Code(s): 27851964 Code(s): K37 - UNSPECIFIED APPENDICITIS Priority: High Qualifiers: Appendicitis type: acute appendicitis Appendicitis perforation presence: with perforation Appendicitis abscess presence: with abscess (2) Diabetes mellitus, new onset SNOMED Code(s): 337997603, 326559018 Code(s): E11.9 - TYPE 2 DIABETES MELLITUS WITHOUT COMPLICATIONS Priority: High (3) Hyperlipidemia associated with type 2 diabetes mellitus SNOMED Code(s): 477391268362, 634210878741 Code(s): E11.69 - TYPE 2 DIABETES MELLITUS WITH OTHER SPECIFIED COMPLICATION ; E78.5 - HYPERLIPIDEMIA, UNSPECIFIED Priority: Medium (4) Rupture of appendix SNOMED Code(s): 26590754 Code(s): K35.2 - ACUTE APPENDICITIS WITH GENERALIZED PERITONIT * DO NOT USE * Priority: High Problem List Initiated/Reviewed/Updated: Yes My Orders Last 24 Hours: Impression: S/P laparoscopic appendectomy converted to open appendectomy -Post-Op day 8 -Prolonged appendiceal perforation with abscess -NPO per general surgery; NG tube in place -> removed and diet advanced per primary service -Pain management per primary service -BP/HR management per primary service -NATALYA drain in place -IV fluids per primary service -> switched to NS plus KCl -Awaiting return or bowel function - expect prolonged ileus -> BMs continue -IV antibiotics per primary service -Dulcolax suppositories and maalox to assist bowel function per primary team Newly diagnosed diabetes mellitus type 2 -A1C 7.3 -Sliding scale insulin -Diabetic nurse educator consult -Liaison Inspection Laboratory Assistant consult -Q6HR blood glucose checks -> Change to QIDAC and Bedtime -Urine microalbumin 6.8 (WNL) -Continue metformin BID with meals -Will need primary care follow-up on discharge -Lipid panel: Triglycerides 103, Total Cholesterol 163, LDL 122, HDL 32 -Will start statin -> elevated liver enzymes. Will stop and defer to primary care -CMP/Magnesium AM starting today -ASA 81mg daily Dyslipidemia -2/2 DM2 -Hold statin due to increasing liver enzymes -Recommend f/u liver enzymes level outpatient -Defer resumption of statin with his new PCP Plan: He remains clinically stable. He has been seen and followed by surgeons Other orders as indicated above Other labs per primary team DVT prophylaxis per primary team: Lovenox Code status: Full code; PCP: Dr. Al; daughter says he will follow up with Dr. Johnston From a hospitalist standpoint he continues to do well. We will now sign off on his case. Discharge instructions for his diabetes was relayed to his daughter Ellen in ICU.
== END 2018-07-07 14:12 | disposition home or self-care (01) | DRG 340 ==
LOC: JD.ED 12:39 → JD.SDS 15:27 → JD.MS 20:15
PROVIDERS: ADMIT Surgery; ATTEND Surgery
PROC: 0DTJ0ZZ Resection of Appendix, Open Approach (ICD-10-PCS; principal; 2018-06-29)
PROC: 0DJD4ZZ Inspection of Lower Intestinal Tract, Percutaneous Endoscopic Approach (ICD-10-PCS; principal; 2018-06-29)
PROC: 0WQF0ZZ Repair Abdominal Wall, Open Approach (ICD-10-PCS; principal; 2018-06-29)
PROC: 3E02340 Introduction of Influenza Vaccine into Muscle, Percutaneous Approach (ICD-10-PCS; 2018-07-07)
DX: K35.33 Acute appendicitis with perforation, localized peritonitis, and gangrene, with abscess (principal); K42.9 Umbilical hernia without obstruction or gangrene; E78.49 Other hyperlipidemia; E11.69 Type 2 diabetes mellitus with other specified complication; Z23 Encounter for immunization; T46.6X5A Adverse effect of antihyperlipidemic and antiarteriosclerotic drugs, initial encounter; R74.8 Abnormal levels of other serum enzymes
CPT/HCPCS: 00840; 36415; 80048; 80053; 80061; 82044; 82962; 83036; 83735; 85025; 87075; 87076; 87077; 87181; 87184; 87186; 87205; 90686; 93005; 93010; 96361; 96374; 96375; 99285; 99285-25; A9270-GY; C9113; G0008; J1170; J1335; J1650; J1815; J1956; J2001; J2250; J2270; J2370; J2405; J2704; J3010; J3480; J3490; J7030; J7040; J7120